=== PATIENT | female | born 1960 | race Caucasian/White ===

== ENCOUNTER 2018-07-16 15:29 | Inpatient (IN) | payer OTHER ==
[~2018-07-16] VITALS: Ht 162.6 cm; Wt 56.9 kg
[2018-07-16 15:40] VITALS: BP 91/67
--- NOTE | 2018-07-16 15:52 | Emergency Room Report ---
History of Present Illness General Chief Complaint: General Complaint Source: Patient Present Illness HPI Patient is a 57-year-old female presented after increased right-sided headache and vomiting. The patient reports having a syncopal episode after standing. She reports having fallen and hit her head. She reports having a persistent headache as well as multiple episodes of vomiting. She reports having generalized body aches and chills. She states that she had not been having any diarrhea. She reports having a nonproductive cough.The patient states she was traveling to [place] she denies any recent alcohol use.The patient was noted to have prior history of arthritis. The patient takes meloxicam. The patient noted to have prior surgery to her neck where she had a nerve ball removed. Patient had prior history of lung nodule and had previously had a CT imaging which showed no change in the nodule.The patient had been taking hormone replacement therapy had recently flown from [place]. Patient denies recent foreign travel.The patient had syncopal episode after standing while in the bathroom. She reported feeling lightheaded prior to syncope. Allergies: Coded Allergies: CEPHALEXIN (Verified Allergy, Unknown, 07/16/18) SULFAMETHOXAZOLE (Verified Allergy, Unknown, 07/16/18) TRIMETHOPRIM (Verified Allergy, Unknown, 07/16/18) Patient History Past Medical History: unable to obtain Reviewed Nursing Documentation: PMH: Agreed; PSxH: Agreed Nursing Documentation-PM Past Medical History: No Stated History Review of Systems All Other Systems: negative except mentioned in HPI Physical Exam Vital Signs Date Time Temp Pulse Resp B/P (MAP) Pulse Ox O2 Delivery O2 Flow Rate FiO2 07/16/18 15:32 97.9 98 16 84/51 93 Room Air Sp02 EP Interpretation: reviewed, normal General Appearance: normal inspection, alert, no apparent distress, GCS 15 Head: other - right parietal scalp laceration 1cm linear, dried blood Eyes: normal eye exam, PERRL, EOMI, lids + conjunctiva normal, no hyphema, no racoon eyes ENT: normal ENT inspection, TMs + canals normal, oropharynx normal, no ruvalcaba signs Neck: trach midline, no bony tend, full range of motion without pain Respiratory: effort normal, no retractions, speaking in full sentences Cardiovascular: regular rate, rhythm, no JVD Cardiovascular #2: 2+ radial (R), 2+ radial (L), 2+ dorsalis pedis (R), 2+ dorsalis pedis (L) Gastrointestinal: normal inspection, non-tender, non-distended, no rebound/ guarding, normal bowel sounds Genitourinary: normal inspection Musculoskeletal: normal inspection, normal ROM, non-tender, back normal Skin: no rash, normal palpation, other - superficial laceration to right parietal scalp Neurologic: normal inspection, CN II-XII intact, oriented x3, sensory intact, motor strength/tone normal, normal speech Psychiatric: normal inspection, judgment & insight normal, memory normal, mood normal, no suicidal/homicidal ideation Medical Decision Making Diagnostic Impression: Primary Impression: Syncope Additional Impressions: Head injury Bilateral pleural effusion Pneumonia Axillary adenopathy Mediastinal lymphadenopathy ER Course Patient is a 57-year-old female presented after increased headache and an syncopal episode. Differential diagnosis included was not limited to subarachnoid hemorrhage, skull fracture, pulmonary embolism, myocardial infarction, cardiac arrhythmia among others.Because of complexity of patient's case laboratory testing and imaging studies were ordered. The patient was noted to have a chest x-ray which showed evidence of a bilateral pulmonary infiltrates. Patient was noted to be initially hypotensive was started on IV fluids. EKG interpreted by me showed normal sinus rhythm with a rate of 75 with diffuse nonspecific T wave changes.The patient was started on IV fluids and antibiotics after cultures are obtained.The chest CT was performed which showed no evidence of pulmonary embolism. CT the chest was noted to have a left lung nodule which patient had previously had diagnosed and had been unchanged. CT chest showed bilateral axillary adenopathy as well as small pleural effusions. Dr.Alfred Holm was contacted for inpatient management. Labs Test 07/16/18 15:48 07/16/18 17:15 White Blood Count 12.2 K/UL (4.8-10.8) Red Blood Count 4.96 M/UL (4.20-5.40) Hemoglobin 15.1 G/DL (12.0-16.0) Hematocrit 42.9 % (37.0-47.0) Mean Corpuscular Volume 87 FL (80-99) Mean Corpuscular Hemoglobin 30.4 PG (27.0-31.0) Mean Corpuscular Hemoglobin Concent 35.1 G/DL (32.0-36.0) Red Cell Distribution Width 11.5 % (11.6-14.8) Platelet Count 181 K/UL (150-450) Mean Platelet Volume 9.4 FL (6.5-10.1) Neutrophils (%) (Auto) % (45.0-75.0) Lymphocytes (%) (Auto) % (20.0-45.0) Monocytes (%) (Auto) % (1.0-10.0) Eosinophils (%) (Auto) % (0.0-3.0) Basophils (%) (Auto) % (0.0-2.0) Prothrombin Time 10.6 SEC (9.30-11.50) Prothromb Time International Ratio 1.0 (0.9-1.1) Activated Partial Thromboplast Time 29 SEC (23-33) D-Dimer 1.44 mg/L FEU (0.00-0.49) Sodium Level 133 MMOL/L (136-145) Potassium Level 5.0 MMOL/L (3.5-5.1) Chloride Level 100 MMOL/L (98-107) Carbon Dioxide Level 24 MMOL/L (21-32) Anion Gap 9 mmol/L (5-15) Blood Urea Nitrogen 31 mg/dL (7-18) Creatinine 1.7 MG/DL (0.55-1.30) Estimat Glomerular Filtration Rate 31.2 mL/min (>60) Glucose Level 120 MG/DL (74-106) Calcium Level 8.8 MG/DL (8.5-10.1) Total Bilirubin 0.5 MG/DL (0.2-1.0) Aspartate Amino Transf (AST/SGOT) 23 U/L (15-37) Alanine Aminotransferase (ALT/SGPT) 23 U/L (12-78) Alkaline Phosphatase 72 U/L (46-116) Total Protein 8.7 G/DL (6.4-8.2) Albumin 3.2 G/DL (3.4-5.0) Globulin 5.5 g/dL Albumin/Globulin Ratio 0.6 (1.0-2.7) EKG Diagnostic Results Rate: normal Rhythm: NSR ST Segments: no acute changes Rhythm Strip Diag. Results EP Interpretation: yes Rhythm: NSR, no PVC's, no ectopy Last Vital Signs Date Time Temp Pulse Resp B/P (MAP) Pulse Ox O2 Delivery O2 Flow Rate FiO2 07/16/18 15:32 97.9 98 16 84/51 93 Room Air Status: improved Disposition: ADMITTED INPATIENT Condition: Serious Elia Del Valle MD Jul 16, 2018 15:52
[2018-07-16] MEDS ORDERED: Metoclopramide 10mg/2ml Inj IVP ONE (16:00)
[2018-07-16 16:16] LABS: HEMATOCRIT 42.9 % (37.0-47.0); HEMOGLOBIN 15.1 G/DL (12.0-16.0); MEAN CORPUSCULAR VOLUME 87 FL (80-99); PLATELET COUNT 181 K/UL (150-450); RED BLOOD COUNT 4.96 M/UL (4.20-5.40); RED CELL DISTRIBUTION WIDTH 11.5 % (11.6-14.8); WHITE BLOOD COUNT 12.2 K/UL (4.8-10.8)
[2018-07-16 16:22] LABS: ANION GAP 9 mmol/L (5-15); BLOOD UREA NITROGEN 31 mg/dL (7-18); CALCIUM 8.8 MG/DL (8.5-10.1); CARBON DIOXIDE 24 MMOL/L (21-32); CHLORIDE 100 MMOL/L (98-107); CREATININE 1.7 MG/DL (0.55-1.30); SODIUM 133 MMOL/L (136-145)
[2018-07-16 16:26] LABS: ALANINE AMINOTRANSFERASE 23 U/L (12-78); ALBUMIN 3.2 G/DL (3.4-5.0); ALBUMIN/GLOBULIN RATIO 0.6 (1.0-2.7); ALKALINE PHOSPHATASE 72 U/L (46-116); ASPARTATE AMINO TRANSFERASE 23 U/L (15-37); BILIRUBIN,TOTAL 0.5 MG/DL (0.2-1.0)
[2018-07-16 16:30] VITALS: BP 104/69
--- NOTE | 2018-07-16 16:35 | Diagnostic Imaging Report ---
EXAM: XR Chest, 1 View CLINICAL HISTORY: SOB TECHNIQUE: Frontal view of the chest. COMPARISON: No relevant prior studies available. FINDINGS: Lungs: Bilateral pulmonary infiltrates/edema. Pleural space: Unremarkable. No pneumothorax. Heart: Unremarkable. No cardiomegaly. Mediastinum: Unremarkable. Bones/joints: Unremarkable. IMPRESSION: Bilateral pulmonary infiltrates/edema.
--- NOTE | 2018-07-16 16:38 | Diagnostic Imaging Report ---
EXAM: CT Head Without Intravenous Contrast CLINICAL HISTORY: PAIN TECHNIQUE: Axial computed tomography images of the head/brain without intravenous contrast. CTDI is 70 mGy and DLP is 2712 mGy-cm. One or more of the following dose reduction techniques were used: automated exposure control, adjustment of the mA and/or kV according to patient size, use of iterative reconstruction technique. COMPARISON: No relevant prior studies available. FINDINGS: Brain: Unremarkable. No hemorrhage. No edema. Ventricles: Unremarkable. No ventriculomegaly. Bones/joints: Unremarkable. No acute fracture. Soft tissues: Unremarkable. Sinuses: Unremarkable as visualized. Mastoid air cells: Unremarkable as visualized. IMPRESSION: No acute intracranial abnormality.
[2018-07-16] MEDS ORDERED: Isovue-370 150ml vial INJ PRN (16:45)
[2018-07-16] MEDS ORDERED: Azithromycin 500 MG in D5W 275 ML IVPB ONE (17:00)
[2018-07-16] MEDS ORDERED: Morphine Sulfate 2mg/ml Inj IVP ONE (17:00)
[2018-07-16] MEDS ORDERED: ZOLOFT100 MG ORAL (17:56)
[2018-07-16] MEDS ORDERED: MELOXICAM15 MG PO (17:56)
[2018-07-16] MEDS ORDERED: MINIVELLE1 EAC1 TD (18:01)
[2018-07-16 18:07] LABS: APPEARANCE,URINE CLEAR; BILIRUBIN, URINE NEGATIVE (NEGATIVE); COLOR,URINE PALE YELLOW; GLUCOSE, URINE (UA) NEGATIVE (NEGATIVE); KETONES,URINE 1+ (NEGATIVE); LEUKOCYTE ESTERASE ,URINE NEGATIVE (NEGATIVE); NITRITE,URINE NEGATIVE (NEGATIVE); PH,URINE 5 (4.5-8.0); PROTEIN,URINE 2+ (NEGATIVE); UROBILINOGEN,URINE NORMAL MG/DL (0.0-1.0)
--- NOTE | 2018-07-16 18:09 | Diagnostic Imaging Report ---
EXAM: CT Angiography Chest With Intravenous Contrast CLINICAL HISTORY: CP TECHNIQUE: Axial computed tomographic angiography images of the chest with intravenous contrast using pulmonary embolism protocol. CTDI is 15 mGy and DLP is 549 mGy-cm. One or more of the following dose reduction techniques were used: automated exposure control, adjustment of the mA and/or kV according to patient size, use of iterative reconstruction technique. MIP reconstructed images were created and reviewed. COMPARISON: No relevant prior studies available. FINDINGS: Pulmonary arteries: No PE or aortic dissection. Aorta: No acute findings. No thoracic aortic dissection. Lungs: Bilateral pulmonary edema/infiltrates. Cannot exclude underlying pulmonary lesion, consider followup to ensure resolution. Possible left upper lobe nodule. Pleural space: Small bilateral pleural effusions. No pneumothorax. Heart: Unremarkable. No cardiomegaly. No significant pericardial effusion. Bones/joints: Nonspecific T7 sclerotic focus. Soft tissues: Unremarkable. Lymph nodes: Nonspecific mildly prominent mediastinal and bilateral axillary lymph nodes. IMPRESSION: 1. No PE or aortic dissection. 2. Bilateral pulmonary edema/infiltrates. Cannot exclude underlying pulmonary lesion, consider followup to ensure resolution. 3. Small bilateral pleural effusions.
[2018-07-16] MEDS ORDERED: Ascorbic Acid 500mg tab ORAL ONE (18:15)
[2018-07-16] MEDS ORDERED: Acetaminophen 500mg (ES) tab ORAL ONE (19:30)
[2018-07-16 19:52] VITALS: BP 100/60
[2018-07-16] MEDS ORDERED: Zolpidem 5mg tab ORAL PRN (20:15)
[2018-07-16] MEDS ORDERED: Milk of Magnesia 30ml Ud ORAL PRN (20:15)
--- NOTE | 2018-07-16 20:31 | History & Physical ---
History and Physical History & Physicial HP dictated # [id number] Jc Holm MD Jul 16, 2018 20:31
[2018-07-16] MEDS ORDERED: Albuterol/Ipratropium 3ml neb HHN SCH (21:00)
[2018-07-16] MEDS ORDERED: Azithromycin 500 MG in D5W 275 ML IV SCH (22:00)
[2018-07-16] MEDS ORDERED: Piperacillin/Tazobactam 3.375 GM in NS 110 ML IVPB SCH (22:00)
[2018-07-16] MEDS: Sertraline 100mg tab ORAL SCH (22:12)
[2018-07-16] MEDS: Piperacillin/Tazobactam 3.375 GM in NS 110 ML IVPB SCH (22:13)
[2018-07-16] MEDS: D5 1/2NS 1,000 ML IV SCH (23:23)
--- NOTE | 2018-07-16 23:46 | History and Physical Report ---
DATE OF ADMISSION: 07/16/2018 CHIEF COMPLAINT: Shortness of breath and reported syncope. HISTORY OF PRESENT ILLNESS: This is a 57-year-old female who usually lives in [place]. She is here with her kids to meet some friends. They were in [place] and she started having vomiting and headaches and apparently had a syncopal episode, hit her head. She has had nonproductive cough and was brought into the emergency room. On chest x-ray, she had some infiltrate and CT scans showed lung nodules as well as pleural effusions. However, the patient says that she had lung nodules before and has been stable for the past few years. MEDICATIONS: Reviewed in the EMR. SOCIAL HISTORY: No history of smoking. She drinks occasionally. ALLERGIES: She is intolerant to Bactrim. She has some allergy to Keflex, possibly some hives. REVIEW OF SYSTEMS: As above. PHYSICAL EXAMINATION: GENERAL: The patient is a 57-year-old female, in no acute distress. VITAL SIGNS: Blood pressure initially was 84/51, pulse 98, temperature 97.9, respiratory rate 16. HEENT: [place] conjunctivae. Anicteric sclerae. NECK: Supple. LUNGS: Diffuse rhonchi and bibasilar rales. HEART: S1-S2 without murmurs or rubs. ABDOMEN: Soft, nontender. EXTREMITIES: No cyanosis or edema. LABORATORY FINDINGS: The CBC shows WBC of 12,200, hematocrit 42.9 hemoglobin is 15.1, platelets 181,000. Chemistry panel shows serum sodium 133, potassium 5, chloride 100, BUN is 31, creatinine 1.7. Blood sugar is 120. UA is unremarkable. ASSESSMENT: This is a 57-year-old female who is admitted with some nausea, vomiting, respiratory symptoms, diagnosis of pneumonia. What is concerning is she has lymphadenopathy and a chest CT. She has renal failure, likely as a result of prerenal azotemia. PLAN: The patient will be on IV fluids and IV antibiotics. Pulmonary consultation will be obtained. The patient will be on bronchodilators, on oxygen. Adjustment will be made in the patient's regimen. Jc Holm M.D. DR: LEONOR JOB#: [id number] CC:
[2018-07-17] VITALS: BP 97/55
[2018-07-17] MEDS: Morphine Sulfate 2mg/ml Inj IVP PRN ×6 (00:22→22:12)
[2018-07-17] MEDS: Albuterol/Ipratropium 3ml neb HHN SCH ×4 (03:42→19:26)
[2018-07-17 04:00] VITALS: BP 108/69
[2018-07-17] MEDS: Piperacillin/Tazobactam 3.375 GM in NS 110 ML IVPB SCH ×3 (05:07→22:11)
[2018-07-17 08:00] VITALS: BP 101/60
[2018-07-17] MEDS: Meloxicam 15 MG TAB ORAL SCH (09:21)
[2018-07-17] MEDS: Sertraline 100mg tab ORAL SCH (09:21)
[2018-07-17] MEDS: D5 1/2NS 1,000 ML IV SCH ×2 (10:47→22:11)
--- NOTE | 2018-07-17 11:29 | General Progress Note ---
Assessment/Plan Problem List: (1) Pneumonia ICD Codes: J18.9 - Pneumonia, unspecified organism SNOMED: 871970836 (2) Mediastinal lymphadenopathy ICD Codes: R59.0 - Localized enlarged lymph nodes SNOMED: 30927061 (3) Axillary adenopathy ICD Codes: R59.0 - Localized enlarged lymph nodes SNOMED: 611562058 (4) Bilateral pleural effusion ICD Codes: J90 - Pleural effusion, not elsewhere classified SNOMED: 872153294 (5) Syncope ICD Codes: R55 - Syncope and collapse SNOMED: 861680555 Assessment/Plan IV Abxs bronchodilators ID and pulm consult check Echo Subjective Allergies: Coded Allergies: CEPHALEXIN (Verified Allergy, Unknown, 07/16/18) SULFAMETHOXAZOLE (Verified Allergy, Unknown, 07/16/18) TRIMETHOPRIM (Verified Allergy, Unknown, 07/16/18) Subjective feels slightly better Objective Last 24 Hour Vital Signs Date Time Temp Pulse Resp B/P (MAP) Pulse Ox O2 Delivery O2 Flow Rate FiO2 07/17/18 09:00 Room Air 07/17/18 08:02 Nasal Cannula 2.0 28 07/17/18 08:02 Nasal Cannula 2.0 28 07/17/18 08:01 123 07/17/18 08:00 100.6 105 18 101/60 (74) 98 07/17/18 05:43 97.7 07/17/18 04:00 100.0 94 20 108/69 (82) 96 07/17/18 04:00 97 07/17/18 03:54 92 18 96 Nasal Cannula 2.0 28 07/17/18 03:51 94 18 Nasal Cannula 2.0 28 07/17/18 03:42 94 18 90 Nasal Cannula 2.0 28 07/17/18 00:00 88 07/17/18 00:00 98.0 85 20 97/55 (69) 96 07/16/18 22:19 Nasal Cannula 2.0 07/16/18 21:20 98.2 86 22 99/58 95 Nasal Cannula 2.0 100 86 07/16/18 20:03 98.2 07/16/18 20:03 98.2 07/16/18 19:52 97.9 86 25 100/60 96 Nasal Cannula 2.0 86 07/16/18 17:40 97.9 07/16/18 16:30 82 16 104/69 96 Nasal Cannula 2.0 07/16/18 15:40 98 16 Room Air 07/16/18 15:40 97.9 84 16 91/67 93 Room Air 07/16/18 15:32 97.9 98 16 84/51 93 Room Air Intake and Output 07/16/18 07/17/18 19:00 07:00 Intake Total 1100 ml 1247.8 ml Output Total 150 ml Balance 950 ml 1247.8 ml Intake Oral 100 ml 240 ml IV Total 1000 ml 1007.8 ml Output Urine Total 150 ml # Voids 1 Laboratory Tests 07/16/18 15:48: White Blood Count 12.2H, Red Blood Count 4.96, Hemoglobin 15.1, Hematocrit 42.9 , Mean Corpuscular Volume 87, Mean Corpuscular Hemoglobin 30.4, Mean Corpuscular Hemoglobin Concent 35.1, Red Cell Distribution Width 11.5L, Platelet Count 181, Mean Platelet Volume 9.4, Neutrophils (%) (Auto) , Lymphocytes (%) (Auto) , Monocytes (%) (Auto) , Eosinophils (%) (Auto) , Basophils (%) (Auto) , Differential Total Cells Counted 100, Neutrophils % ( Manual) 95H, Lymphocytes % (Manual) 4L, Monocytes % (Manual) 0L, Eosinophils % ( Manual) 1, Basophils % (Manual) 0, Band Neutrophils 0, Platelet Estimate Adequate, Platelet Morphology Normal, Red Blood Cell Morphology Normal, Prothrombin Time 10.6, Prothromb Time International Ratio 1.0, Activated Partial Thromboplast Time 29, D-Dimer 1.44H, Sodium Level 133L, Potassium Level 5.0, Chloride Level 100, Carbon Dioxide Level 24, Anion Gap 9, Blood Urea Nitrogen 31H, Creatinine 1.7H, Estimat Glomerular Filtration Rate 31.2, Glucose Level 120H, Calcium Level 8.8, Total Bilirubin 0.5, Aspartate Amino Transf (AST/ SGOT) 23, Alanine Aminotransferase (ALT/SGPT) 23, Alkaline Phosphatase 72, Troponin I 0.000, Total Protein 8.7H, Albumin 3.2L, Globulin 5.5, Albumin/ Globulin Ratio 0.6L 07/16/18 17:15: Lactic Acid Level 0.30L 07/16/18 17:58: Urine Color Pale yellow, Urine Appearance Clear, Urine pH 5, Urine Specific [place] 1.010, Urine Protein 2+H, Urine Glucose (UA) Negative, Urine Ketones 1+H , Urine Blood Negative, Urine Nitrite Negative, Urine Bilirubin Negative, Urine Urobilinogen Normal, Urine Leukocyte Esterase Negative, Urine RBC 0, Urine WBC 0 -2, Urine Squamous Epithelial Cells ManyH, Urine Amorphous Sediment ManyH, Urine Bacteria Few Height (Feet): 5 Height (Inches): 4.00 Weight (Pounds): 125 Cardiovascular: normal rate Respiratory/Chest: crackles/rales, rhonchi - bilaterally Edema: no edema noted Generalized Jc Holm MD Jul 17, 2018 11:29
--- NOTE | 2018-07-17 11:41 | Pulmonology Progress Note ---
Assessment/Plan Assessment/Plan HPI Patient is a 57-year-old female visiting [place], who presented after increased right-sided headache and vomiting. The patient reports having a syncopal episode after standing, having fallen and hit her head. She reports having a persistent headache as well as multiple episodes of vomiting. She reports having generalized body aches and chills. She states that she had not been having any diarrhea. She reports having a nonproductive cough. Previous neck surgery to her neck where she had a nerve ball removed. Patient had prior history of lung nodule and had previously had a CT imaging which showed no change in the nodule.The patient had been taking hormone replacement therapy had recently flown from [place]. Patient denies recent foreign travel.The patient had syncopal episode after standing while in the bathroom. She reported feeling lightheaded prior to syncope Allergies: Coded Allergies: CEPHALEXIN (Verified Allergy, Unknown, 07/16/18) SULFAMETHOXAZOLE (Verified Allergy, Unknown, 07/16/18) TRIMETHOPRIM (Verified Allergy, Unknown, 07/16/18) Patient History Past Medical History: unable to obtain Reviewed Nursing Documentation: PMH: Agreed; PSxH: Agreed Nursing Documentation-PM Past Medical History: No Stated History Review of Systems All Other Systems: negative except mentioned in HPI Physical Exam Vital Signs Noted Sp02 EP Interpretation: reviewed, normal General Appearance: normal inspection, alert, no apparent distress, GCS 15 Head: other - right parietal scalp laceration 1cm linear, dried blood Eyes: normal eye exam, PERRL, EOMI, lids + conjunctiva normal, no hyphema, no racoon eyes ENT: normal ENT inspection, TMs + canals normal, oropharynx normal, no ruvalcaba signs Neck: trach midline, no bony tend, full range of motion without pain Respiratory: effort normal, no retractions, speaking in full sentences Cardiovascular: regular rate, rhythm, no JVD Cardiovascular #2: 2+ radial (R), 2+ radial (L), 2+ dorsalis pedis (R), 2+ dorsalis pedis (L) Gastrointestinal: normal inspection, non-tender, non-distended, no rebound/ guarding, normal bowel sounds Genitourinary: normal inspection Musculoskeletal: normal inspection, normal ROM, non-tender, back normal Skin: no rash, normal palpation, other - superficial laceration to right parietal scalp Neurologic: normal inspection, CN II-XII intact, oriented x3, sensory intact, motor strength/tone normal, normal speech Psychiatric: normal inspection, judgment & insight normal, memory normal, mood normal, no suicidal/homicidal ideation Medical Decision Making Impression: Primary Impression: Syncope Head injury Bilateral pleural effusion Pneumonia Pulmonary Nodule Axillary adenopathy Mediastinal lymphadenopathy Plan IV fluids. IV Antibiotics [facility] [employer] medications Out patient follow upof Pulmonary Nodule PPX O2 PRN CXR: Bilateral infiltrates CT Chest: No PE, Pulmonary nodule, Mediastinal LN Labs Test 07/16/18 15:48 07/16/18 17:15 White Blood Count 12.2 K/UL (4.8-10.8) Red Blood Count 4.96 M/UL (4.20-5.40) Hemoglobin 15.1 G/DL (12.0-16.0) Hematocrit 42.9 % (37.0-47.0) Mean Corpuscular Volume 87 FL (80-99) Mean Corpuscular Hemoglobin 30.4 PG (27.0-31.0) Mean Corpuscular Hemoglobin Concent 35.1 G/DL (32.0-36.0) Red Cell Distribution Width 11.5 % (11.6-14.8) Platelet Count 181 K/UL (150-450) Mean Platelet Volume 9.4 FL (6.5-10.1) Neutrophils (%) (Auto) % (45.0-75.0) Lymphocytes (%) (Auto) % (20.0-45.0) Monocytes (%) (Auto) % (1.0-10.0) Eosinophils (%) (Auto) % (0.0-3.0) Basophils (%) (Auto) % (0.0-2.0) Prothrombin Time 10.6 SEC (9.30-11.50) Prothromb Time International Ratio 1.0 (0.9-1.1) Activated Partial Thromboplast Time 29 SEC (23-33) D-Dimer 1.44 mg/L FEU (0.00-0.49) Sodium Level 133 MMOL/L (136-145) Potassium Level 5.0 MMOL/L (3.5-5.1) Chloride Level 100 MMOL/L (98-107) Carbon Dioxide Level 24 MMOL/L (21-32) Anion Gap 9 mmol/L (5-15) Blood Urea Nitrogen 31 mg/dL (7-18) Creatinine 1.7 MG/DL (0.55-1.30) Estimat Glomerular Filtration Rate 31.2 mL/min (>60) Glucose Level 120 MG/DL (74-106) Calcium Level 8.8 MG/DL (8.5-10.1) Total Bilirubin 0.5 MG/DL (0.2-1.0) Aspartate Amino Transf (AST/SGOT) 23 U/L (15-37) Alanine Aminotransferase (ALT/SGPT) 23 U/L (12-78) Alkaline Phosphatase 72 U/L (46-116) Total Protein 8.7 G/DL (6.4-8.2) Albumin 3.2 G/DL (3.4-5.0) Globulin 5.5 g/dL Albumin/Globulin Ratio 0.6 (1.0-2.7) EKG Diagnostic Results Rate: normal Rhythm: NSR ST Segments: no acute changes Rhythm Strip Diag. Results EP Interpretation: yes Rhythm: NSR, no PVC's, no ectopy Subjective ROS Limited/Unobtainable: No Allergies: Coded Allergies: CEPHALEXIN (Verified Allergy, Unknown, 07/16/18) SULFAMETHOXAZOLE (Verified Allergy, Unknown, 07/16/18) TRIMETHOPRIM (Verified Allergy, Unknown, 07/16/18) Objective Last 24 Hour Vital Signs Date Time Temp Pulse Resp B/P (MAP) Pulse Ox O2 Delivery O2 Flow Rate FiO2 07/17/18 09:00 Room Air 07/17/18 08:02 Nasal Cannula 2.0 28 07/17/18 08:02 Nasal Cannula 2.0 28 07/17/18 08:01 123 07/17/18 08:00 100.6 105 18 101/60 (74) 98 07/17/18 05:43 97.7 07/17/18 04:00 100.0 94 20 108/69 (82) 96 07/17/18 04:00 97 07/17/18 03:54 92 18 96 Nasal Cannula 2.0 28 07/17/18 03:51 94 18 Nasal Cannula 2.0 28 07/17/18 03:42 94 18 90 Nasal Cannula 2.0 28 07/17/18 00:00 88 07/17/18 00:00 98.0 85 20 97/55 (69) 96 07/16/18 22:19 Nasal Cannula 2.0 07/16/18 21:20 98.2 86 22 99/58 95 Nasal Cannula 2.0 100 86 07/16/18 20:03 98.2 07/16/18 20:03 98.2 07/16/18 19:52 97.9 86 25 100/60 96 Nasal Cannula 2.0 86 07/16/18 17:40 97.9 07/16/18 16:30 82 16 104/69 96 Nasal Cannula 2.0 07/16/18 15:40 98 16 Room Air 07/16/18 15:40 97.9 84 16 91/67 93 Room Air 07/16/18 15:32 97.9 98 16 84/51 93 Room Air Intake and Output 07/16/18 07/17/18 19:00 07:00 Intake Total 1100 ml 1247.8 ml Output Total 150 ml Balance 950 ml 1247.8 ml Intake Oral 100 ml 240 ml IV Total 1000 ml 1007.8 ml Output Urine Total 150 ml # Voids 1 Microbiology Date/Time Source Procedure Growth Status 07/16/18 16:55 Nasal Nares Influenza Types A,B Antigen (SONAL) - Final Complete Laboratory Tests 07/16/18 15:48: White Blood Count 12.2H, Red Blood Count 4.96, Hemoglobin 15.1, Hematocrit 42.9 , Mean Corpuscular Volume 87, Mean Corpuscular Hemoglobin 30.4, Mean Corpuscular Hemoglobin Concent 35.1, Red Cell Distribution Width 11.5L, Platelet Count 181, Mean Platelet Volume 9.4, Neutrophils (%) (Auto) , Lymphocytes (%) (Auto) , Monocytes (%) (Auto) , Eosinophils (%) (Auto) , Basophils (%) (Auto) , Differential Total Cells Counted 100, Neutrophils % ( Manual) 95H, Lymphocytes % (Manual) 4L, Monocytes % (Manual) 0L, Eosinophils % ( Manual) 1, Basophils % (Manual) 0, Band Neutrophils 0, Platelet Estimate Adequate, Platelet Morphology Normal, Red Blood Cell Morphology Normal, Prothrombin Time 10.6, Prothromb Time International Ratio 1.0, Activated Partial Thromboplast Time 29, D-Dimer 1.44H, Sodium Level 133L, Potassium Level 5.0, Chloride Level 100, Carbon Dioxide Level 24, Anion Gap 9, Blood Urea Nitrogen 31H, Creatinine 1.7H, Estimat Glomerular Filtration Rate 31.2, Glucose Level 120H, Calcium Level 8.8, Total Bilirubin 0.5, Aspartate Amino Transf (AST/ SGOT) 23, Alanine Aminotransferase (ALT/SGPT) 23, Alkaline Phosphatase 72, Troponin I 0.000, Total Protein 8.7H, Albumin 3.2L, Globulin 5.5, Albumin/ Globulin Ratio 0.6L 07/16/18 17:15: Lactic Acid Level 0.30L 07/16/18 17:58: Urine Color Pale yellow, Urine Appearance Clear, Urine pH 5, Urine Specific [place] 1.010, Urine Protein 2+H, Urine Glucose (UA) Negative, Urine Ketones 1+H , Urine Blood Negative, Urine Nitrite Negative, Urine Bilirubin Negative, Urine Urobilinogen Normal, Urine Leukocyte Esterase Negative, Urine RBC 0, Urine WBC 0 -2, Urine Squamous Epithelial Cells ManyH, Urine Amorphous Sediment ManyH, Urine Bacteria Few Current Medications Medications (Trade) Dose Ordered Sig/Dayanara Route PRN Reason Start Time Stop Time Status Last Admin Dose Admin Acetaminophen (Tylenol) 650 mg Q4H PRN ORAL Mild Pain (Pain Scale 1-3) 07/16/18 20:15 08/15/18 20:14 07/16/18 22:14 Acetaminophen (Tylenol) 650 mg Q4H PRN ORAL fever 07/16/18 20:15 08/15/18 20:14 Albuterol/ Ipratropium (Albuterol/ Ipratropium) 3 ml Q6HRT HHN 07/17/18 01:00 07/22/18 00:59 07/17/18 03:42 Azithromycin 500 mg/Dextrose 275 ml @ 275 mls/hr Q24H IV 07/16/18 22:00 07/23/18 21:59 07/16/18 22:13 Dextrose/Sodium Chloride 1,000 ml @ 75 mls/hr [id number] IV 07/16/18 21:15 08/15/18 21:14 07/17/18 10:47 Famotidine (Pepcid) 20 mg DAILY ORAL 07/16/18 20:15 08/15/18 20:14 07/17/18 09:21 Iopamidol (Isovue-370 150ml) 150 ml NOW PRN INJ Radiology Procedure 07/16/18 16:45 07/18/18 16:42 Magnesium Hydroxide (Mom) 30 ml HSPRN PRN ORAL Constipation 07/16/18 20:15 08/15/18 20:14 Meloxicam (Mobic) 15 mg DAILY ORAL 07/17/18 09:00 08/16/18 08:59 07/17/18 09:21 Morphine Sulfate (Morphine Sulfate) 2 mg Q3H PRN IVP For Pain 07/16/18 23:45 07/23/18 23:44 07/17/18 10:47 Ondansetron HCl (Zofran) 4 mg Q6H PRN IVP Nausea & Vomiting 07/16/18 20:15 08/15/18 20:14 07/17/18 05:34 Piperacillin Sod/ Tazobactam Sod 3.375 gm/Sodium Chloride 110 ml @ 27.5 mls/hr EVERY 8 HOURS IVPB 07/16/18 22:00 07/23/18 21:59 07/17/18 05:07 Sertraline HCl (Zoloft) 100 mg DAILY ORAL 07/16/18 20:15 08/15/18 20:14 07/17/18 09:21 Zolpidem Tartrate (Ambien) 5 mg HSPRN PRN ORAL Insomnia 07/16/18 20:15 07/23/18 20:14 07/16/18 22:12 Renny Roper MD Jul 17, 2018 11:40
[2018-07-17 12:00] VITALS: BP 97/66
--- NOTE | 2018-07-17 15:31 | Infectious Diseases Prog Note ---
Assessment/Plan Assessment/Plan Full consult dictated: A) 1) pneumonia - ? cap, ? viral, ? mrsa, cocci/tuberculosis less likely 2) ? sepsis, nirav, leukocytosis, fevers 3) sob, hypoxia, bernal, no neck stiffness - started Wednesday 4) allergies - cephalexin, sulfa, tolerates zosyn/pcn P) 1) zosyn and vancomycin, azithromycin, tamiflu 2) check sc, labs, serology and chest x-ray 3) d/w Dr. Roper 4) continue treatment per primary and consultants 5) thank you Subjective Allergies: Coded Allergies: CEPHALEXIN (Verified Allergy, Unknown, 07/16/18) SULFAMETHOXAZOLE (Verified Allergy, Unknown, 07/16/18) TRIMETHOPRIM (Verified Allergy, Unknown, 07/16/18) Objective Vital Signs Last 24 Hour Vital Signs Date Time Temp Pulse Resp B/P (MAP) Pulse Ox O2 Delivery O2 Flow Rate FiO2 07/17/18 12:36 79 20 95 Nasal Cannula 3.0 32 07/17/18 12:27 76 20 91 Nasal Cannula 3.0 32 07/17/18 12:00 100.2 78 18 97/66 (76) 100 07/17/18 11:53 74 07/17/18 09:00 Room Air 07/17/18 08:02 Nasal Cannula 2.0 28 07/17/18 08:02 Nasal Cannula 2.0 28 07/17/18 08:01 123 07/17/18 08:00 100.6 105 18 101/60 (74) 98 07/17/18 05:43 97.7 07/17/18 04:00 100.0 94 20 108/69 (82) 96 07/17/18 04:00 97 07/17/18 03:54 92 18 96 Nasal Cannula 2.0 28 07/17/18 03:51 94 18 Nasal Cannula 2.0 28 07/17/18 03:42 94 18 90 Nasal Cannula 2.0 28 07/17/18 00:00 88 07/17/18 00:00 98.0 85 20 97/55 (69) 96 07/16/18 22:19 Nasal Cannula 2.0 07/16/18 21:20 98.2 86 22 99/58 95 Nasal Cannula 2.0 100 86 07/16/18 20:03 98.2 07/16/18 20:03 98.2 11/10/18 19:52 97.9 86 25 100/60 96 Nasal Cannula 2.0 86 07/16/18 17:40 97.9 07/16/18 16:30 82 16 104/69 96 Nasal Cannula 2.0 07/16/18 15:40 98 16 Room Air 07/16/18 15:40 97.9 84 16 91/67 93 Room Air 07/16/18 15:32 97.9 98 16 84/51 93 Room Air Height (Feet): 5 Height (Inches): 4.00 Weight (Pounds): 125 Microbiology Date/Time Source Procedure Growth Status 07/16/18 16:55 Nasal Nares Influenza Types A,B Antigen (SONAL) - Final Complete Laboratory Tests Test 07/16/18 15:48 07/16/18 17:15 07/16/18 17:58 White Blood Count 12.2 K/UL (4.8-10.8) H Red Blood Count 4.96 M/UL (4.20-5.40) Hemoglobin 15.1 G/DL (12.0-16.0) Hematocrit 42.9 % (37.0-47.0) Mean Corpuscular Volume 87 FL (80-99) Mean Corpuscular Hemoglobin 30.4 PG (27.0-31.0) Mean Corpuscular Hemoglobin Concent 35.1 G/DL (32.0-36.0) Red Cell Distribution Width 11.5 % (11.6-14.8) L Platelet Count 181 K/UL (150-450) Mean Platelet Volume 9.4 FL (6.5-10.1) Neutrophils (%) (Auto) % (45.0-75.0) Lymphocytes (%) (Auto) % (20.0-45.0) Monocytes (%) (Auto) % (1.0-10.0) Eosinophils (%) (Auto) % (0.0-3.0) Basophils (%) (Auto) % (0.0-2.0) Differential Total Cells Counted 100 Neutrophils % (Manual) 95 % (45-75) H Lymphocytes % (Manual) 4 % (20-45) L Monocytes % (Manual) 0 % (1-10) L Eosinophils % (Manual) 1 % (0-3) Basophils % (Manual) 0 % (0-2) Band Neutrophils 0 % (0-8) Platelet Estimate Adequate Platelet Morphology Normal Red Blood Cell Morphology Normal Prothrombin Time 10.6 SEC (9.30-11.50) Prothromb Time International Ratio 1.0 (0.9-1.1) Activated Partial Thromboplast Time 29 SEC (23-33) D-Dimer 1.44 mg/L FEU (0.00-0.49) H Sodium Level 133 MMOL/L (136-145) L Potassium Level 5.0 MMOL/L (3.5-5.1) Chloride Level 100 MMOL/L (98-107) Carbon Dioxide Level 24 MMOL/L (21-32) Anion Gap 9 mmol/L (5-15) Blood Urea Nitrogen 31 mg/dL (7-18) H Creatinine 1.7 MG/DL (0.55-1.30) H Estimat Glomerular Filtration Rate 31.2 mL/min (>60) Glucose Level 120 MG/DL (74-106) H Calcium Level 8.8 MG/DL (8.5-10.1) Total Bilirubin 0.5 MG/DL (0.2-1.0) Aspartate Amino Transf (AST/SGOT) 23 U/L (15-37) Alanine Aminotransferase (ALT/SGPT) 23 U/L (12-78) Alkaline Phosphatase 72 U/L (46-116) Troponin I 0.000 ng/mL (0.000-0.056) Total Protein 8.7 G/DL (6.4-8.2) H Albumin 3.2 G/DL (3.4-5.0) L Globulin 5.5 g/dL Albumin/Globulin Ratio 0.6 (1.0-2.7) L Lactic Acid Level 0.30 mmol/L (0.4-2.0) L Urine Color Pale yellow Urine Appearance Clear Urine pH 5 (4.5-8.0) Urine Specific [place] 1.010 (1.005-1.035) Urine Protein 2+ (NEGATIVE) H Urine Glucose (UA) Negative (NEGATIVE) Urine Ketones 1+ (NEGATIVE) H Urine Blood Negative (NEGATIVE) Urine Nitrite Negative (NEGATIVE) Urine Bilirubin Negative (NEGATIVE) Urine Urobilinogen Normal MG/DL (0.0-1.0) Urine Leukocyte Esterase Negative (NEGATIVE) Urine RBC 0 /HPF (0 - 2) Urine WBC 0-2 /HPF (0 - 2) Urine Squamous Epithelial Cells Many /LPF (NONE/OCC) H Urine Amorphous Sediment Many /LPF (NONE) H Urine Bacteria Few /HPF (NONE) Current Medications Medications (Trade) Dose Ordered Sig/Dayanara Route PRN Reason Start Time Stop Time Status Last Admin Dose Admin Acetaminophen (Tylenol) 650 mg Q4H PRN ORAL Mild Pain (Pain Scale 1-3) 07/16/18 20:15 08/15/18 20:14 07/16/18 22:14 Acetaminophen (Tylenol) 650 mg Q4H PRN ORAL fever 07/16/18 20:15 08/15/18 20:14 Albuterol/ Ipratropium (Albuterol/ Ipratropium) 3 ml Q6HRT HHN 07/17/18 01:00 07/22/18 00:59 07/17/18 12:29 Azithromycin 500 mg/Dextrose 275 ml @ 275 mls/hr Q24H IV 07/16/18 22:00 07/23/18 21:59 07/16/18 22:13 Dextrose/Sodium Chloride 1,000 ml @ 75 mls/hr [id number] IV 07/16/18 21:15 08/15/18 21:14 07/17/18 10:47 Famotidine (Pepcid) 20 mg DAILY ORAL 07/16/18 20:15 08/15/18 20:14 07/17/18 09:21 Fluconazole/ Sodium Chloride 100 ml @ 100 mls/hr Q24H IV 07/17/18 16:00 07/24/18 15:59 Iopamidol (Isovue-370 150ml) 150 ml NOW PRN INJ Radiology Procedure 07/16/18 16:45 07/18/18 16:42 Magnesium Hydroxide (Mom) 30 ml HSPRN PRN ORAL Constipation 07/16/18 20:15 08/15/18 20:14 Meloxicam (Mobic) 15 mg DAILY ORAL 07/17/18 09:00 08/16/18 08:59 07/17/18 09:21 Morphine Sulfate (Morphine Sulfate) 2 mg Q3H PRN IVP For Pain 07/16/18 23:45 07/23/18 23:44 07/17/18 15:02 Ondansetron HCl (Zofran) 4 mg Q6H PRN IVP Nausea & Vomiting 07/16/18 20:15 08/15/18 20:14 07/17/18 05:34 Oseltamivir Phosphate (Tamiflu) 30 mg BID ORAL 07/17/18 18:00 07/22/18 17:59 Piperacillin Sod/ Tazobactam Sod 3.375 gm/Sodium Chloride 110 ml @ 27.5 mls/hr EVERY 8 HOURS IVPB 07/16/18 22:00 07/23/18 21:59 07/17/18 14:30 Sertraline HCl (Zoloft) 100 mg DAILY ORAL 07/16/18 20:15 08/15/18 20:14 07/17/18 09:21 Vancomycin HCl (Vanco rx to dose) 1 ea DAILY PRN MISC Per rx protocol 07/17/18 14:45 08/16/18 14:44 Vancomycin HCl 1 gm/Dextrose 275 ml @ 183.708 mls/hr ONCE IVPB 07/17/18 16:00 07/17/18 18:00 Zolpidem Tartrate (Ambien) 5 mg HSPRN PRN ORAL Insomnia 07/16/18 20:15 07/23/18 20:14 07/16/18 22:12 Naz Sainz MD Jul 17, 2018 15:31
[2018-07-17 16:00] VITALS: BP 100/61
[2018-07-17] MEDS ORDERED: Vancomycin 1gm/D5W 275ml IVPB SCH ×2 (16:00)
[2018-07-17 16:20] LABS: HEMATOCRIT 35.9 % (37.0-47.0); HEMOGLOBIN 12.4 G/DL (12.0-16.0); MEAN CORPUSCULAR VOLUME 87 FL (80-99); PLATELET COUNT 140 K/UL (150-450); RED BLOOD COUNT 4.12 M/UL (4.20-5.40); RED CELL DISTRIBUTION WIDTH 11.7 % (11.6-14.8); WHITE BLOOD COUNT 11.2 K/UL (4.8-10.8)
[2018-07-17 16:28] LABS: ALANINE AMINOTRANSFERASE 18 U/L (12-78); ALKALINE PHOSPHATASE 45 U/L (46-116); ANION GAP 9 mmol/L (5-15); ASPARTATE AMINO TRANSFERASE 17 U/L (15-37); BILIRUBIN,TOTAL 0.2 MG/DL (0.2-1.0); CALCIUM 7.4 MG/DL (8.5-10.1); CARBON DIOXIDE 22 MMOL/L (21-32); CHLORIDE 103 MMOL/L (98-107); LACTATE DEHYDROGENASE 128 U/L (81-234); POTASSIUM 3.9 MMOL/L (3.5-5.1); SODIUM 134 MMOL/L (136-145)
[2018-07-17 17:18] LABS: ALBUMIN 2.1 G/DL (3.4-5.0); BLOOD UREA NITROGEN 18 mg/dL (7-18)
[2018-07-17 20:00] VITALS: BP 128/88
[2018-07-17] MEDS ORDERED: LORazepam 1mg tab ORAL PRN (20:45)
[2018-07-17] MEDS ORDERED: Azithromycin 500 MG in D5W 275 ML IV SCH (21:00)
--- NOTE | 2018-07-17 22:46 | Consultation ---
DATE OF CONSULTATION: 07/17/2018 INFECTIOUS DISEASES CONSULTATION: CONSULTING PHYSICIAN: Naz Sainz M.D. ATTENDING PHYSICIAN: Jc Holm M.D. REFERRING PHYSICIAN: Jc Holm M.D. REASON FOR CONSULTATION: Pneumonia, possible sepsis, fevers. CHIEF COMPLAINT: The patient's chief complaint coming to the hospital is shortness of breath, congestion, fevers, headache, hypoxia. She also had episodes of vomiting and also nonproductive cough. She does have cough and congestion looks like also. HISTORY OF PRESENT ILLNESS: This is a very pleasant 57-year-old female, who has no significant past medical history, who presents to [facility] with a nonproductive cough, syncopal episode, headaches, and vomiting. The patient presented to [place] and chest x-ray and CT showed infiltrates and CT showed lung nodule. She also had effusions. The patient has a history of lung nodules. The patient is febrile, elevated white count, and it is unclear if she has sepsis; however, lactic acid level is unremarkable, it was normal. Infectious Disease consultation is requested for antibiotic management in this patient. The patient is on Zosyn and azithromycin. I am going to add vancomycin and Tamiflu. Influenza screen is negative; however, this is not a PCR test, which lessens its sensitivity. Case discussed with Dr. Roper, who will also evaluate the patient. Case discussed with the patient and RN. Orders were entered and we will continue Zosyn, vancomycin, azithromycin, and Tamiflu for now. Of note, she was in [place] from Wednesday to Wednesday. She lives in [place]. She travelled from [place] to [place] and again she was there from Wednesday to Wednesday. REVIEW OF SYSTEMS: CONSTITUTIONAL: She has generalized fatigue, however, no focal weakness. She had headache and vomiting and nonproductive cough. HEAD AND NECK: No neck stiffness or change in vision. She is alert, responsive, and oriented, but did have a headache. CARDIAC: No chest pain or palpitations. GASTROINTESTINAL: She did have nausea and vomiting. She has no diarrhea or abdominal pain. PULMONARY: She has cough that is nonproductive. No hemoptysis or secretions. SKIN: No rash or itching. EXTREMITIES: No extremity pain. NEUROLOGIC: No seizures. She does have headache. GENITOURINARY: No dysuria or frequency. PAST MEDICAL HISTORY: Includes the following, the patient has a history of pulmonary nodule, but otherwise no other significant past medical history. No history of diabetes or hypertension. No history of cancer or heart disease. ALLERGIES: Include cephalexin, sulfamethoxazole, and trimethoprim. She cannot tolerate Bactrim and cephalexin, I believe she had hives when she was younger; however, she is tolerating Zosyn well and she says she has tolerated penicillin in the past. SOCIAL HISTORY: Negative for smoking, alcohol, or drug abuse. FAMILY HISTORY: Noncontributory. MEDICATIONS: Upon reviewing the MAR, she is on the following medications. She is put on Tamiflu, vancomycin, Zosyn, and azithromycin. She is also on other medications. She is on Mobic or meloxicam, albuterol treatments, morphine, Zoloft, Tylenol, Pepcid, MOM, Zofran, and Ambien. Outside medications noted and reconciliated. PHYSICAL EXAMINATION: VITAL SIGNS: The patient has been febrile. Most recent temperature 100.2. T-max 100.6. Currently temperature 100.2, pulse rate 79, respiratory rate 20. Saturation 95% on FiO2 3 liters or 32%. Respiratory rate has been as high as 25 and heart rate has been as high as 123. GENERAL: Alert, responsive, oriented x3, in no acute distress. She has O2 on nasal cannula. HEAD AND NECK: Oral exam, no thrush. Eye exam, no icterus. Normocephalic. Neck is supple. HEART: Regular. No gallop or murmur. ABDOMEN: Soft. Positive bowel sounds. Nontender. LUNGS: Bilateral rhonchi, rales, and crackles. SKIN: No rash. MUSCULOSKELETAL: No effusion. Legs are without cellulitis. PERIPHERAL VASCULAR: No cyanosis or gangrene. GENITOURINARY: No Trejo. LINE SITES: Without phlebitis. LABORATORY DATA: UA was leukocyte esterase negative. Creatinine 1.7 and sodium 133. LFTs noted. White count 12.2 and hemoglobin 15.1. Serology has been ordered. IMAGING STUDIES: CT scan of the chest showed bilateral pulmonary edema and infiltrates. Cannot exclude underlying pulmonary lesions. She also has small effusions and I believe nodules seen also, underlying pulmonary nodule was seen also per the records. Chest x-ray showed bilateral infiltrates versus edema. CT scan of the head showed no acute abnormality. ASSESSMENT AND PLAN: 1. The patient has, what looks like, pneumonia, fevers, elevated white count, possible underlying sepsis secondary to pneumonia. Etiology of pneumonia is unclear at this time. She certainly could have community-acquired pneumonia. Her influenza screen is negative; however, it is not a PCR test and thus reduces the sensitivity. Certainly, this could be a viral pneumonia, also underlying bacterial pneumonia such as MRSA especially in the view of if it is a viral pneumonia or viral syndrome or some type of viral infection. She is at risk for MRSA infection. She is at risk for atypical pathogens such as Streptococcus pneumoniae, Legionella, Mycoplasma as a source of pneumonia, less likely gram-negative pneumonia. At this time, I will continue vancomycin, Zosyn, and azithromycin to cover community-acquired pneumonia including MRSA and gram negatives and Streptococcus pneumoniae and also continue azithromycin to cover atypicals. Also, we will add Tamiflu to treat for influenzas, possible influenzae pneumonia especially in view of this time of the year this season. We have entered influenza season. Continue antibiotics vancomycin, Zosyn, azithromycin, and Tamiflu. Check sputum culture, laboratories, chest x-ray, and serology. The patient also is possibly septic. We will watch fevers or leukocytosis. 2. Less likely pneumonia will be cocci or tuberculosis pneumonia especially in view of the acuity. She said this has happened over several days. With regard to cocci, the incubation period is usually at least 7 days prior to symptoms after exposure and TB will be unlikely in this scenario. There is no cavity seen on the CT scan. We will also check for cocci and cryptococcus, but I will not start Diflucan unless the patient is refractory to current regimen. 3. No other significant past medical history. 4. History of pulmonary nodule in the past per the patient. 5. Acute kidney injury with elevated creatinine, likely dehydration. 6. Nausea and vomiting. 7. Headache. 8. No evidence of neck stiffness. 9. Breathing treatments per Pulmonary Medicine. 10. Allergies to cephalexin, sulfamethoxazole, and trimethoprim. She tolerated Zosyn. 11. Social history is negative. 12. Family history is noncontributory. 13. MAR was noted. 14. Case was discussed with the RN. 15. Case discussed with pharmacy. 16. Case was discussed with the patient and the patient's family. 17. Case discussed with Dr. Roper. 18. Continue treatment per primary consultants. 19. Notes and records were noted. 20. Orders were entered. Naz Sainz M.D. DR: SAMSON JOB#: [id number] CC:
[2018-07-18] VITALS: BP 127/83
[2018-07-18] MEDS: Albuterol/Ipratropium 3ml neb HHN SCH ×3 (01:17→12:36)
[2018-07-18 04:00] VITALS: BP 105/74
[2018-07-18] MEDS: Piperacillin/Tazobactam 3.375 GM in NS 110 ML IVPB SCH (05:29)
[2018-07-18 08:00] VITALS: BP 111/74
[2018-07-18] MEDS: Sertraline 100mg tab ORAL SCH (08:16)
[2018-07-18] MEDS: Meloxicam 15 MG TAB ORAL SCH (08:17)
[2018-07-18] MEDS ORDERED: Excedrin Migraine tab ORAL PRN ×2 (09:15→20:53)
[2018-07-18] MEDS ORDERED: Milk of Magnesia 30ml Ud ORAL PRN (10:00)
--- NOTE | 2018-07-18 10:32 | Cardiology Report ---
APPROVED REPORT EXAM: Two-dimensional and M-mode echocardiogram with Doppler and color Doppler. INDICATION EJECTION FRACTION M-Mode DIMENSIONS IVSd1.0 (0.7-1.1cm)Left Atrium (MM)3.3 (1.6-4.0cm) LVDd4.8 (3.5-5.6cm)Aortic Root2.8 (2.0-3.7cm) PWd1.0 (0.7-1.1cm)Aortic Cusp Exc.1.7 (1.5-2.0cm) IVSs1.7 cm LVDs3.4 (2.5-4.0cm) PWs1.0 cm Normal left ventricular chamber size, systolic function and wall motion . Left ventricular ejection fraction estimated to be 65-70%. No evidence of left ventricular hypertrophy. No evidence of pericardial effusion. Large pleural effusion present . All other cardiac chamber sizes are within normal limits. Focal aortic valve sclerosis with adequate cusp excursion. Thickened mitral valve leaflets with normal excursion. Mitral annulus and aortic root calcification. Pulmonic valve not well visualized. Normal tricuspid valve structure. Pacemaker wire present in the right side chambers. IVC at normal size cm with physiologic collapse . A color flow and spectral Doppler study was performed and revealed: No aortic regurgitation. Mild mitral regurgitation. Mitral diastolic velocities suggest reduced left ventricular relaxation c/w mild LV diastolic dysfunction (Grade I ). Mild tricuspid regurgitation. Tricuspid systolic velocities suggests peak right ventricular systolic pressure of 30 mmHg.
[2018-07-18 12:00] VITALS: BP 121/79
--- NOTE | 2018-07-18 12:25 | Infectious Diseases Prog Note ---
Assessment/Plan Assessment/Plan A) 1) sob, hypoxia, + CT scan with infiltrates/nodules - ? pneumonia - ? cap, ? viral, ? mrsa, ? other 2) rule out other process - ? vasculitis, ? malignancy, ct without PE 3) sepsis, nirav, leukocytosis, fevers, tachypnea, tachycardia 4) pmh - depression 5) allergies - cephalexin, sulfa, tolerates zosyn/pcn 6) fh-nc, sh-negative, mar noted, notes and records noted 7) d/w RN P) 1) zosyn, clindamycin, azithromycin, tamiflu - patient cannot tolerate vancomycin - had reaction yesterday - cannot use zyvox secondary to drug interaction with zoloft 2) check sc, labs, serology and chest x-ray 3) d/w Dr. Holm, d/w Dr. Roper 4) continue treatment per primary and consultants 5) d/w mother and patient 6) consider transfer to higher level of care for possible bronchoscopy and lung biopsy Subjective Constitutional: Reports: other - + headache ; Denies: fever HEENT: Reports: congestion Respiratory: Reports: shortness of breath Cardiovascular: Denies: chest pain Gastrointestinal/Abdominal: Reports: other - no abdominal pain ; Denies: nausea , vomiting, diarrhea Neurologic: Reports: headache Psychiatric: Denies: depression Skin: Denies: rash Hematologic: Denies: bleeding Musculoskeletal: Reports: pain Allergies: Coded Allergies: CEPHALEXIN (Verified Allergy, Unknown, 07/16/18) SULFAMETHOXAZOLE (Verified Allergy, Unknown, 07/16/18) TRIMETHOPRIM (Verified Allergy, Unknown, 07/16/18) Objective Vital Signs Last 24 Hour Vital Signs Date Time Temp Pulse Resp B/P (MAP) Pulse Ox O2 Delivery O2 Flow Rate FiO2 07/18/18 09:00 Room Air 07/18/18 08:05 94 07/18/18 08:00 98.0 90 18 111/74 (86) 92 07/18/18 07:36 92 20 93 Nasal Cannula 4.0 36 07/18/18 07:26 90 20 92 Venturi Mask 15.0 07/18/18 04:00 98.5 92 24 105/74 (84) 97 07/18/18 04:00 83 07/18/18 01:33 92 20 92 Nasal Cannula 4.0 36 07/18/18 01:22 92 20 92 Nasal Cannula 4.0 36 07/18/18 00:31 77 07/18/18 00:00 98.2 68 18 127/83 (98) 96 07/17/18 21:00 Nasal Cannula 2.0 07/17/18 20:00 97.3 73 20 128/88 (101) 96 07/17/18 20:00 70 07/17/18 19:32 83 22 92 Nasal Cannula 4.0 36 07/17/18 19:28 82 22 92 Nasal Cannula 4.0 36 07/17/18 16:00 98.5 80 18 100/61 (74) 99 07/17/18 15:58 74 07/17/18 12:36 79 20 95 Nasal Cannula 3.0 32 07/17/18 12:27 76 20 91 Nasal Cannula 3.0 32 Height (Feet): 5 Height (Inches): 4.00 Weight (Pounds): 125 General Appearance: no acute distress HEENT: normocephalic, atraumatic, anicteric Respiratory/Chest: crackles/rales, rhonchi - bilaterally Cardiovascular: normal rate, regular rhythm, no gallop/murmur, no JVD Abdomen: normal bowel sounds, soft, non tender, non distended Genitourinary: other - no pulido Extremities: no cyanosis Skin: no rash Neurologic/Psychiatric: service desk lead II-XII grossly normal, alert, oriented x 3, responsive Lymphatic: no neck adenopathy Musculoskeletal: no effusion Objective CT chest - IMPRESSION: 1. No PE or aortic dissection. 2. Bilateral pulmonary edema/infiltrates. Cannot exclude underlying pulmonary lesion, consider followup to ensure resolution. 3. Small bilateral pleural effusions. Chest x-ray - 07/16 - FINDINGS: Lungs: Bilateral pulmonary infiltrates/edema. Pleural space: Unremarkable. No pneumothorax. Heart: Unremarkable. No cardiomegaly. Mediastinum: Unremarkable. Bones/joints: Unremarkable. IMPRESSION: Bilateral pulmonary infiltrates/edema. Microbiology Date/Time Source Procedure Growth Status 07/16/18 16:05 Blood Blood Culture - Preliminary NO GROWTH AFTER 24 HOURS Resulted 07/16/18 15:55 Blood Blood Culture - Preliminary NO GROWTH AFTER 24 HOURS Resulted 07/16/18 16:55 Nasal Nares Influenza Types A,B Antigen (SONAL) - Final Complete Laboratory Tests Test 07/17/18 15:45 07/18/18 01:46 07/18/18 02:23 White Blood Count 11.2 K/UL (4.8-10.8) H Red Blood Count 4.12 M/UL (4.20-5.40) L Hemoglobin 12.4 G/DL (12.0-16.0) Hematocrit 35.9 % (37.0-47.0) L Mean Corpuscular Volume 87 FL (80-99) Mean Corpuscular Hemoglobin 30.0 PG (27.0-31.0) Mean Corpuscular Hemoglobin Concent 34.5 G/DL (32.0-36.0) Red Cell Distribution Width 11.7 % (11.6-14.8) Platelet Count 140 K/UL (150-450) L Mean Platelet Volume 9.3 FL (6.5-10.1) Neutrophils (%) (Auto) % (45.0-75.0) Lymphocytes (%) (Auto) % (20.0-45.0) Monocytes (%) (Auto) % (1.0-10.0) Eosinophils (%) (Auto) % (0.0-3.0) Basophils (%) (Auto) % (0.0-2.0) Differential Total Cells Counted 100 Neutrophils % (Manual) 87 % (45-75) H Lymphocytes % (Manual) 3 % (20-45) L Monocytes % (Manual) 8 % (1-10) Eosinophils % (Manual) 1 % (0-3) Basophils % (Manual) 0 % (0-2) Band Neutrophils 1 % (0-8) Platelet Estimate Adequate Platelet Morphology Normal Red Blood Cell Morphology Normal Sodium Level 134 MMOL/L (136-145) L Potassium Level 3.9 MMOL/L (3.5-5.1) Chloride Level 103 MMOL/L (98-107) Carbon Dioxide Level 22 MMOL/L (21-32) Anion Gap 9 mmol/L (5-15) Blood Urea Nitrogen 18 mg/dL (7-18) Creatinine 1.0 MG/DL (0.55-1.30) Estimat Glomerular Filtration Rate 57.6 mL/min (>60) Glucose Level 123 MG/DL (74-106) H Calcium Level 7.4 MG/DL (8.5-10.1) L Total Bilirubin 0.2 MG/DL (0.2-1.0) Aspartate Amino Transf (AST/SGOT) 17 U/L (15-37) Alanine Aminotransferase (ALT/SGPT) 18 U/L (12-78) Alkaline Phosphatase 45 U/L (46-116) L Lactate Dehydrogenase 128 U/L (81-234) Total Protein 6.1 G/DL (6.4-8.2) L Albumin 2.1 G/DL (3.4-5.0) L Globulin 4.0 g/dL Coccidioides Antibody (Comp Fix) Pending Mycoplasma pneumoniae IgG Antibody Pending Mycoplasma pneumoniae IgM Ab Titer Pending Urine Legionella Antigen Pending Arterial Blood pH 7.370 (7.350-7.450) Arterial Blood Partial Pressure CO2 37.0 mmHg (35.0-45.0) Arterial Blood Partial Pressure O2 82.0 mmHg (75.0-100.0) Arterial Blood HCO3 21.2 mmol/L (22.0-26.0) L Arterial Blood Oxygen Saturation 96.0 % (95-100) Arterial Blood Base Excess -3.4 (-2-2) L Donato Test Positive Current Medications Medications (Trade) Dose Ordered Sig/Dayanara Route PRN Reason Start Time Stop Time Status Last Admin Dose Admin Acetaminophen (Tylenol) 650 mg Q4H PRN ORAL Mild Pain (Pain Scale 1-3) 07/16/18 20:15 08/15/18 20:14 07/16/18 22:14 Acetaminophen (Tylenol) 650 mg Q4H PRN ORAL fever 07/16/18 20:15 08/15/18 20:14 Acetaminophen/ Aspirin/Caffeine (Excedrin Migraine) 1 ea Q6H PRN ORAL migraine 07/18/18 09:15 08/17/18 09:14 Albuterol/ Ipratropium (Albuterol/ Ipratropium) 3 ml Q6HRT HHN 07/17/18 01:00 07/22/18 00:59 07/18/18 07:20 Azithromycin 500 mg/Dextrose 275 ml @ 275 mls/hr Q24H IV 07/17/18 21:00 07/24/18 20:59 07/17/18 20:51 Dextrose/Sodium Chloride 1,000 ml @ 75 mls/hr [id number] IV 07/16/18 21:15 08/15/18 21:14 07/17/18 22:11 Famotidine (Pepcid) 20 mg DAILY ORAL 07/16/18 20:15 08/15/18 20:14 07/18/18 08:17 Iopamidol (Isovue-370 150ml) 150 ml NOW PRN INJ Radiology Procedure 07/16/18 16:45 07/18/18 16:42 Lorazepam (Ativan) 1 mg Q4H PRN ORAL For Anxiety 07/17/18 20:45 07/24/18 20:44 07/17/18 20:51 Magnesium Hydroxide (Mom) 30 ml BID PRN ORAL Constipation 07/18/18 10:00 08/17/18 09:59 07/18/18 10:14 Meloxicam (Mobic) 15 mg DAILY ORAL 07/17/18 09:00 08/16/18 08:59 07/18/18 08:17 Morphine Sulfate (Morphine Sulfate) 2 mg Q3H PRN IVP For Pain 07/16/18 23:45 07/23/18 23:44 07/17/18 22:12 Ondansetron HCl (Zofran) 4 mg Q4H PRN IVP Nausea & Vomiting 07/17/18 21:00 08/16/18 20:59 07/18/18 11:17 Oseltamivir Phosphate (Tamiflu) 75 mg BID ORAL 07/18/18 18:00 07/23/18 17:59 Sertraline HCl (Zoloft) 100 mg DAILY ORAL 07/16/18 20:15 08/15/18 20:14 07/18/18 08:16 Zolpidem Tartrate (Ambien) 5 mg HSPRN PRN ORAL Insomnia 07/16/18 20:15 07/23/18 20:14 07/16/18 22:12 Naz Sainz MD Jul 18, 2018 12:25
--- NOTE | 2018-07-18 12:48 | General Progress Note ---
Assessment/Plan Problem List: (1) Pneumonia ICD Codes: J18.9 - Pneumonia, unspecified organism SNOMED: 277911817 (2) Mediastinal lymphadenopathy ICD Codes: R59.0 - Localized enlarged lymph nodes SNOMED: 18545668 (3) Axillary adenopathy ICD Codes: R59.0 - Localized enlarged lymph nodes SNOMED: 618662301 (4) Bilateral pleural effusion ICD Codes: J90 - Pleural effusion, not elsewhere classified SNOMED: 769011665 (5) Syncope ICD Codes: R55 - Syncope and collapse SNOMED: 041847321 Assessment/Plan IV Abxs bronchodilators Discussed with ID , Pulm and family Transfer to [facility] for possible lung biopsy Subjective Allergies: Coded Allergies: CEPHALEXIN (Verified Allergy, Unknown, 07/16/18) SULFAMETHOXAZOLE (Verified Allergy, Unknown, 07/16/18) TRIMETHOPRIM (Verified Allergy, Unknown, 07/16/18) Subjective SOB Objective Last 24 Hour Vital Signs Date Time Temp Pulse Resp B/P (MAP) Pulse Ox O2 Delivery O2 Flow Rate FiO2 07/18/18 12:37 85 20 95 Venturi Mask 15.0 07/18/18 09:00 Room Air 07/18/18 08:05 94 07/18/18 08:00 98.0 90 18 111/74 (86) 92 07/18/18 07:36 92 20 93 Nasal Cannula 4.0 36 07/18/18 07:26 90 20 92 Venturi Mask 15.0 07/18/18 04:00 98.5 92 24 105/74 (84) 97 07/18/18 04:00 83 07/18/18 01:33 92 20 92 Nasal Cannula 4.0 36 07/18/18 01:22 92 20 92 Nasal Cannula 4.0 36 07/18/18 00:31 77 07/18/18 00:00 98.2 68 18 127/83 (98) 96 07/17/18 21:00 Nasal Cannula 2.0 07/17/18 20:00 97.3 73 20 128/88 (101) 96 07/17/18 20:00 70 07/17/18 19:32 83 22 92 Nasal Cannula 4.0 36 07/17/18 19:28 82 22 92 Nasal Cannula 4.0 36 07/17/18 16:00 98.5 80 18 100/61 (74) 99 07/17/18 15:58 74 Intake and Output 07/17/18 07/18/18 18:59 06:59 Intake Total 242.5 ml 1525.2 ml Balance 242.5 ml 1525.2 ml Intake Oral 240 ml IV Total 102.5 ml 1285.2 ml Other 140 ml # Voids 2 2 Laboratory Tests 07/17/18 15:45: White Blood Count 11.2H, Red Blood Count 4.12L, Hemoglobin 12.4, Hematocrit 35.9L, Mean Corpuscular Volume 87, Mean Corpuscular Hemoglobin 30.0, Mean Corpuscular Hemoglobin Concent 34.5, Red Cell Distribution Width 11.7, Platelet Count 140L, Mean Platelet Volume 9.3, Neutrophils (%) (Auto) , Lymphocytes (%) ( Auto) , Monocytes (%) (Auto) , Eosinophils (%) (Auto) , Basophils (%) (Auto) , Differential Total Cells Counted 100, Neutrophils % (Manual) 87H, Lymphocytes % (Manual) 3L, Monocytes % (Manual) 8, Eosinophils % (Manual) 1, Basophils % ( Manual) 0, Band Neutrophils 1, Platelet Estimate Adequate, Platelet Morphology Normal, Red Blood Cell Morphology Normal, Sodium Level 134L, Potassium Level 3.9 , Chloride Level 103, Carbon Dioxide Level 22, Anion Gap 9, Blood Urea Nitrogen 18, Creatinine 1.0, Estimat Glomerular Filtration Rate 57.6, Glucose Level 123H , Calcium Level 7.4L, Total Bilirubin 0.2, Aspartate Amino Transf (AST/SGOT) 17 , Alanine Aminotransferase (ALT/SGPT) 18, Alkaline Phosphatase 45L, Lactate Dehydrogenase 128, Total Protein 6.1L, Albumin 2.1L, Globulin 4.0, Coccidioides Antibody (Comp Fix) [Pending], Mycoplasma pneumoniae IgG Antibody [Pending], Mycoplasma pneumoniae IgM Ab Titer [Pending] 07/18/18 01:46: Urine Legionella Antigen [Pending] 07/18/18 02:23: Arterial Blood pH 7.370, Arterial Blood Partial Pressure CO2 37.0, Arterial Blood Partial Pressure O2 82.0, Arterial Blood HCO3 21.2L, Arterial Blood Oxygen Saturation 96.0, Arterial Blood Base Excess -3.4L, Donato Test Positive Height (Feet): 5 Height (Inches): 4.00 Weight (Pounds): 125 Cardiovascular: normal rate Respiratory/Chest: rhonchi - bilaterally Edema: no edema noted Generalized Jc Holm MD Jul 18, 2018 12:48
[2018-07-18] MEDS ORDERED: Albuterol/Ipratropium 3ml neb HHN PRN ×3 (13:15→20:53)
[2018-07-18] MEDS ORDERED: Clindamycin 600mg 50 ML IV SCH (14:00)
[2018-07-18] MEDS ORDERED: Zosyn 4.5gm q8h **Extended infusion IVPB SCH ×2 (14:00)
[2018-07-18] MEDS: D5 1/2NS 1,000 ML IV SCH ×2 (14:25→21:24)
--- NOTE | 2018-07-18 14:49 | Pulmonology Progress Note ---
Assessment/Plan Assessment/Plan HPI Patient is a 57-year-old female visiting [place], who presented after increased right-sided headache and vomiting. The patient reports having a syncopal episode after standing, having fallen and hit her head. She reports having a persistent headache as well as multiple episodes of vomiting. She reports having generalized body aches and chills. She states that she had not been having any diarrhea. She reports having a nonproductive cough. Previous neck surgery to her neck where she had a nerve ball removed. Patient had prior history of lung nodule and had previously had a CT imaging which showed no change in the nodule.The patient had been taking hormone replacement therapy had recently flown from [place]. Patient denies recent foreign travel.The patient had syncopal episode after standing while in the bathroom. She reported feeling lightheaded prior to syncope. Denies sick contacts, no h/o immunosupression/connective tissue disease On Antibiotics per ID Allergies: Coded Allergies: CEPHALEXIN (Verified Allergy, Unknown, 07/16/18) SULFAMETHOXAZOLE (Verified Allergy, Unknown, 07/16/18) TRIMETHOPRIM (Verified Allergy, Unknown, 07/16/18) Patient History Past Medical History: unable to obtain Reviewed Nursing Documentation: PMH: Agreed; PSxH: Agreed Nursing Documentation-PMH Past Medical History: No Stated History Review of Systems All Other Systems: negative except mentioned in HPI Physical Exam Vital Signs Noted Sp02 EP Interpretation: reviewed, normal General Appearance: normal inspection, alert, no apparent distress, GCS 15 Head: other - right parietal scalp laceration 1cm linear, dried blood Eyes: normal eye exam, PERRL, EOMI, lids + conjunctiva normal, no hyphema, no racoon eyes ENT: normal ENT inspection, TMs + canals normal, oropharynx normal, no ruvalcaba signs Neck: trach midline, no bony tend, full range of motion without pain Respiratory: effort normal, no retractions, speaking in full sentences Cardiovascular: regular rate, rhythm, no JVD Cardiovascular #2: 2+ radial (R), 2+ radial (L), 2+ dorsalis pedis (R), 2+ dorsalis pedis (L) Gastrointestinal: normal inspection, non-tender, non-distended, no rebound/ guarding, normal bowel sounds Genitourinary: normal inspection Musculoskeletal: normal inspection, normal ROM, non-tender, back normal Skin: no rash, normal palpation, other - superficial laceration to right parietal scalp Neurologic: normal inspection, CN II-XII intact, oriented x3, sensory intact, motor strength/tone normal, normal speech Psychiatric: normal inspection, judgment & insight normal, memory normal, mood normal, no suicidal/homicidal ideation Medical Decision Making Impression: Primary Impression: Syncope Head injury Bilateral pleural effusion Pneumonia Pulmonary Nodule Axillary adenopathy Mediastinal lymphadenopathy Plan IV fluids. IV Antibiotics HHN [employer] medications Out patient follow upof Pulmonary Nodule PPX O2 PRN CXR: Bilateral infiltrates CT Chest: No PE, Pulmonary nodule, Mediastinal LN Labs Test 07/16/18 15:48 07/16/18 17:15 White Blood Count 12.2 K/UL (4.8-10.8) Red Blood Count 4.96 M/UL (4.20-5.40) Hemoglobin 15.1 G/DL (12.0-16.0) Hematocrit 42.9 % (37.0-47.0) Mean Corpuscular Volume 87 FL (80-99) Mean Corpuscular Hemoglobin 30.4 PG (27.0-31.0) Mean Corpuscular Hemoglobin Concent 35.1 G/DL (32.0-36.0) Red Cell Distribution Width 11.5 % (11.6-14.8) Platelet Count 181 K/UL (150-450) Mean Platelet Volume 9.4 FL (6.5-10.1) Neutrophils (%) (Auto) % (45.0-75.0) Lymphocytes (%) (Auto) % (20.0-45.0) Monocytes (%) (Auto) % (1.0-10.0) Eosinophils (%) (Auto) % (0.0-3.0) Basophils (%) (Auto) % (0.0-2.0) Prothrombin Time 10.6 SEC (9.30-11.50) Prothromb Time International Ratio 1.0 (0.9-1.1) Activated Partial Thromboplast Time 29 SEC (23-33) D-Dimer 1.44 mg/L FEU (0.00-0.49) Sodium Level 133 MMOL/L (136-145) Potassium Level 5.0 MMOL/L (3.5-5.1) Chloride Level 100 MMOL/L (98-107) Carbon Dioxide Level 24 MMOL/L (21-32) Anion Gap 9 mmol/L (5-15) Blood Urea Nitrogen 31 mg/dL (7-18) Creatinine 1.7 MG/DL (0.55-1.30) Estimat Glomerular Filtration Rate 31.2 mL/min (>60) Glucose Level 120 MG/DL (74-106) Calcium Level 8.8 MG/DL (8.5-10.1) Total Bilirubin 0.5 MG/DL (0.2-1.0) Aspartate Amino Transf (AST/SGOT) 23 U/L (15-37) Alanine Aminotransferase (ALT/SGPT) 23 U/L (12-78) Alkaline Phosphatase 72 U/L (46-116) Total Protein 8.7 G/DL (6.4-8.2) Albumin 3.2 G/DL (3.4-5.0) Globulin 5.5 g/dL Albumin/Globulin Ratio 0.6 (1.0-2.7) EKG Diagnostic Results Rate: normal Rhythm: NSR ST Segments: no acute changes Rhythm Strip Diag. Results EP Interpretation: yes Rhythm: NSR, no PVC's, no ectopy CT Chest: 1. No PE or aortic dissection. 2. Bilateral pulmonary edema/infiltrates. Cannot exclude underlying pulmonary lesion, consider followup to ensure resolution. 3. Small bilateral pleural effusions. Subjective ROS Limited/Unobtainable: No Allergies: Coded Allergies: CEPHALEXIN (Verified Allergy, Unknown, 07/16/18) SULFAMETHOXAZOLE (Verified Allergy, Unknown, 07/16/18) TRIMETHOPRIM (Verified Allergy, Unknown, 07/16/18) Objective Last 24 Hour Vital Signs Date Time Temp Pulse Resp B/P (MAP) Pulse Ox O2 Delivery O2 Flow Rate FiO2 07/18/18 12:54 85 20 95 Non-Rebreather 14.0 07/18/18 12:37 85 20 95 Venturi Mask 14.0 07/18/18 09:00 Room Air 07/18/18 08:05 94 07/18/18 08:00 98.0 90 18 111/74 (86) 92 07/18/18 07:36 92 20 93 Nasal Cannula 4.0 36 07/18/18 07:26 90 20 92 Venturi Mask 14.0 07/18/18 04:00 98.5 92 24 105/74 (84) 97 11/12/18 04:00 83 07/18/18 01:33 92 20 92 Nasal Cannula 4.0 36 07/18/18 01:22 92 20 92 Nasal Cannula 4.0 36 07/18/18 00:31 77 07/18/18 00:00 98.2 68 18 127/83 (98) 96 07/17/18 21:00 Nasal Cannula 2.0 07/17/18 20:00 97.3 73 20 128/88 (101) 96 07/17/18 20:00 70 07/17/18 19:32 83 22 92 Nasal Cannula 4.0 36 07/17/18 19:28 82 22 92 Nasal Cannula 4.0 36 07/17/18 16:00 98.5 80 18 100/61 (74) 99 07/17/18 15:58 74 Intake and Output 07/17/18 07/18/18 19:00 07:00 Intake Total 215 ml 1552.7 ml Balance 215 ml 1552.7 ml Intake Oral 240 ml IV Total 75 ml 1312.7 ml Other 140 ml # Voids 2 2 Microbiology Date/Time Source Procedure Growth Status 07/16/18 16:05 Blood Blood Culture - Preliminary NO GROWTH AFTER 24 HOURS Resulted 07/16/18 15:55 Blood Blood Culture - Preliminary NO GROWTH AFTER 24 HOURS Resulted 07/16/18 16:55 Nasal Nares Influenza Types A,B Antigen (SONAL) - Final Complete Laboratory Tests 07/17/18 15:45: White Blood Count 11.2H, Red Blood Count 4.12L, Hemoglobin 12.4, Hematocrit 35.9L, Mean Corpuscular Volume 87, Mean Corpuscular Hemoglobin 30.0, Mean Corpuscular Hemoglobin Concent 34.5, Red Cell Distribution Width 11.7, Platelet Count 140L, Mean Platelet Volume 9.3, Neutrophils (%) (Auto) , Lymphocytes (%) ( Auto) , Monocytes (%) (Auto) , Eosinophils (%) (Auto) , Basophils (%) (Auto) , Differential Total Cells Counted 100, Neutrophils % (Manual) 87H, Lymphocytes % (Manual) 3L, Monocytes % (Manual) 8, Eosinophils % (Manual) 1, Basophils % ( Manual) 0, Band Neutrophils 1, Platelet Estimate Adequate, Platelet Morphology Normal, Red Blood Cell Morphology Normal, Sodium Level 134L, Potassium Level 3.9 , Chloride Level 103, Carbon Dioxide Level 22, Anion Gap 9, Blood Urea Nitrogen 18, Creatinine 1.0, Estimat Glomerular Filtration Rate 57.6, Glucose Level 123H , Calcium Level 7.4L, Total Bilirubin 0.2, Aspartate Amino Transf (AST/SGOT) 17 , Alanine Aminotransferase (ALT/SGPT) 18, Alkaline Phosphatase 45L, Lactate Dehydrogenase 128, Total Protein 6.1L, Albumin 2.1L, Globulin 4.0, Coccidioides Antibody (Comp Fix) [Pending], Mycoplasma pneumoniae IgG Antibody [Pending], Mycoplasma pneumoniae IgM Ab Titer [Pending] 07/18/18 01:46: Urine Legionella Antigen [Pending] 07/18/18 02:23: Arterial Blood pH 7.370, Arterial Blood Partial Pressure CO2 37.0, Arterial Blood Partial Pressure O2 82.0, Arterial Blood HCO3 21.2L, Arterial Blood Oxygen Saturation 96.0, Arterial Blood Base Excess -3.4L, Donato Test Positive 07/18/18 13:50: Cryptococcus Antigen [Pending], HIV (1&2) Antibody Rapid Negative Current Medications Medications (Trade) Dose Ordered Sig/Dayanara Route PRN Reason Start Time Stop Time Status Last Admin Dose Admin Acetaminophen (Tylenol) 650 mg Q4H PRN ORAL Mild Pain (Pain Scale 1-3) 07/16/18 20:15 08/15/18 20:14 07/16/18 22:14 Acetaminophen (Tylenol) 650 mg Q4H PRN ORAL fever 07/16/18 20:15 08/15/18 20:14 Acetaminophen/ Aspirin/Caffeine (Excedrin Migraine) 1 ea Q6H PRN ORAL migraine 07/18/18 09:15 08/17/18 09:14 Albuterol/ Ipratropium (Albuterol/ Ipratropium) 3 ml Q4H PRN HHN Shortness of Breath 07/18/18 13:15 07/23/18 13:14 Azithromycin 500 mg/Dextrose 275 ml @ 275 mls/hr Q24H IV 07/17/18 21:00 07/24/18 20:59 07/17/18 20:51 Clindamycin HCl/ Dextrose 50 ml @ 100 mls/hr EVERY 8 HOURS IV 07/18/18 14:00 07/25/18 13:59 07/18/18 14:28 Dextrose/Sodium Chloride 1,000 ml @ 75 mls/hr [id number] IV 07/16/18 21:15 08/15/18 21:14 07/18/18 14:25 Famotidine (Pepcid) 20 mg DAILY ORAL 07/16/18 20:15 08/15/18 20:14 07/18/18 08:17 Fluconazole/ Sodium Chloride 200 ml @ 200 mls/hr Q24H IV 07/18/18 14:00 07/25/18 13:59 Iopamidol (Isovue-370 150ml) 150 ml NOW PRN INJ Radiology Procedure 07/16/18 16:45 07/18/18 16:42 Lorazepam (Ativan) 1 mg Q4H PRN ORAL For Anxiety 07/17/18 20:45 07/24/18 20:44 07/17/18 20:51 Magnesium Hydroxide (Mom) 30 ml BID PRN ORAL Constipation 07/18/18 10:00 08/17/18 09:59 07/18/18 10:14 Meloxicam (Mobic) 15 mg DAILY ORAL 07/17/18 09:00 08/16/18 08:59 07/18/18 08:17 Morphine Sulfate (Morphine Sulfate) 2 mg Q3H PRN IVP For Pain 07/16/18 23:45 07/23/18 23:44 07/17/18 22:12 Ondansetron HCl (Zofran) 4 mg Q4H PRN IVP Nausea & Vomiting 07/17/18 21:00 08/16/18 20:59 07/18/18 11:17 Oseltamivir Phosphate (Tamiflu) 75 mg BID ORAL 07/18/18 18:00 07/23/18 17:59 Piperacillin Sod/ Tazobactam Sod 4.5 gm/Sodium Chloride 110 ml @ 27.5 mls/hr EVERY 8 HOURS IVPB 07/18/18 14:00 07/23/18 13:59 07/18/18 14:27 Sertraline HCl (Zoloft) 100 mg DAILY ORAL 07/16/18 20:15 08/15/18 20:14 07/18/18 08:16 Zolpidem Tartrate (Ambien) 5 mg HSPRN PRN ORAL Insomnia 07/16/18 20:15 07/23/18 20:14 11/10/18 22:12 Renny Roper MD Jul 18, 2018 14:49
[2018-07-18 16:00] VITALS: BP 131/85
[2018-07-18] MEDS ORDERED: Oseltamivir 75mg cap ORAL SCH (18:00)
[2018-07-18 20:00] VITALS: BP 147/87
[2018-07-18] MEDS ORDERED: Zolpidem 5mg tab ORAL PRN (20:54)
[2018-07-18] MEDS ORDERED: Morphine Sulfate 2mg/ml Inj IVP PRN (20:54)
[2018-07-18] MEDS: Azithromycin 500 MG in D5W 275 ML IV SCH (21:24)
[2018-07-18] MEDS: LORazepam 1mg tab ORAL PRN (21:40)
[2018-07-18] MEDS: Clindamycin 600mg 50 ML IV SCH (22:00)
[2018-07-18] MEDS: Piperacillin/Tazobactam 4.5 GM in NS 110 ML IVPB SCH (22:58)
[2018-07-19] VITALS: BP 126/69
[2018-07-19 04:00] VITALS: BP 121/78
[2018-07-19 05:35] LABS: HEMATOCRIT 31.5 % (37.0-47.0); HEMOGLOBIN 10.6 G/DL (12.0-16.0); MEAN CORPUSCULAR VOLUME 85 FL (80-99); PLATELET COUNT 142 K/UL (150-450); RED BLOOD COUNT 3.71 M/UL (4.20-5.40); WHITE BLOOD COUNT 11.3 K/UL (4.8-10.8)
[2018-07-19] MEDS: Clindamycin 600mg 50 ML IV SCH ×2 (05:38→14:36)
[2018-07-19 05:54] LABS: ALANINE AMINOTRANSFERASE 10 U/L (12-78); ALBUMIN 2.1 G/DL (3.4-5.0); ALBUMIN/GLOBULIN RATIO 0.5 (1.0-2.7); ALKALINE PHOSPHATASE 52 U/L (46-116); ANION GAP 10 mmol/L (5-15); ASPARTATE AMINO TRANSFERASE 20 U/L (15-37); BILIRUBIN,TOTAL 0.4 MG/DL (0.2-1.0); BLOOD UREA NITROGEN 11 mg/dL (7-18); CALCIUM 7.9 MG/DL (8.5-10.1); CARBON DIOXIDE 24 MMOL/L (21-32); CHLORIDE 104 MMOL/L (98-107); CREATININE 0.9 MG/DL (0.55-1.30); POTASSIUM 3.7 MMOL/L (3.5-5.1); SODIUM 137 MMOL/L (136-145)
[2018-07-19] MEDS: Piperacillin/Tazobactam 4.5 GM in NS 110 ML IVPB SCH ×3 (06:58→21:03)
[2018-07-19 07:33] VITALS: BP 131/83
[2018-07-19] MEDS: Oseltamivir 75mg cap ORAL SCH ×2 (08:33→17:19)
[2018-07-19] MEDS: Sertraline 100mg tab ORAL SCH (08:34)
[2018-07-19] MEDS: Meloxicam 15 MG TAB ORAL SCH (08:34)
[2018-07-19] MEDS ORDERED: Milk of Magnesia 30ml Ud ORAL PRN (09:00)
--- NOTE | 2018-07-19 10:00 | Diagnostic Imaging Report ---
Indication: Dyspnea Technique: One view of the chest Comparison: 07/16/2018 Findings: Much less optimal inspiration currently. Diffuse bilateral interstitial and airspace disease is probably unchanged allowing for differences in degree of inspiration. There is probably some pleural fluid now present bilaterally. Impression: Bilateral interstitial and airspace disease, infiltrates versus edema, probably not significantly changed over 3 days Low lung volumes currently. Suspect increasing bilateral pleural effusions
[2018-07-19] MEDS: D5 1/2NS 1,000 ML IV SCH ×2 (10:11→22:55)
[2018-07-19 12:00] VITALS: BP 122/79
--- NOTE | 2018-07-19 14:13 | Pulmonology Progress Note ---
Assessment/Plan Assessment/Plan HPI Patient is a 57-year-old female visiting [place], who presented after increased right-sided headache and vomiting. The patient reports having a syncopal episode after standing, having fallen and hit her head. She reports having a persistent headache as well as multiple episodes of vomiting. She reports having generalized body aches and chills. She states that she had not been having any diarrhea. She reports having a nonproductive cough. Previous neck surgery to her neck where she had a nerve ball removed. Patient had prior history of lung nodule and had previously had a CT imaging which showed no change in the nodule.The patient had been taking hormone replacement therapy had recently flown from [place]. Patient denies recent foreign travel.The patient had syncopal episode after standing while in the bathroom. She reported feeling lightheaded prior to syncope. Denies sick contacts, no h/o immunosupression/connective tissue disease Remains SOB, high O2 requirements CXR: Impression: Bilateral interstitial and airspace disease, infiltrates versus edema, probably not significantly changed over 3 days Low lung volumes currently. Suspect increasing bilateral pleural effusions Previous CT Angio negative for PE On Antibiotics per ID Allergies: Coded Allergies: CEPHALEXIN (Verified Allergy, Unknown, 07/16/18) SULFAMETHOXAZOLE (Verified Allergy, Unknown, 07/16/18) TRIMETHOPRIM (Verified Allergy, Unknown, 07/16/18) Patient History Past Medical History: unable to obtain Reviewed Nursing Documentation: PMH: Agreed; PSxH: Agreed Nursing Documentation-[facility] Past Medical History: No Stated History Review of Systems All Other Systems: negative except mentioned in HPI Physical Exam Vital Signs Noted Sp02 EP Interpretation: reviewed, normal General Appearance: normal inspection, alert, no apparent distress, GCS 15 Head: other - right parietal scalp laceration 1cm linear, dried blood Eyes: normal eye exam, PERRL, EOMI, lids + conjunctiva normal, no hyphema, no racoon eyes ENT: normal ENT inspection, TMs + canals normal, oropharynx normal, no ruvalcaba signs Neck: trach midline, no bony tend, full range of motion without pain Respiratory: effort normal, no retractions, speaking in full sentences Cardiovascular: regular rate, rhythm, no JVD Cardiovascular #2: 2+ radial (R), 2+ radial (L), 2+ dorsalis pedis (R), 2+ dorsalis pedis (L) Gastrointestinal: normal inspection, non-tender, non-distended, no rebound/ guarding, normal bowel sounds Genitourinary: normal inspection Musculoskeletal: normal inspection, normal ROM, non-tender, back normal Skin: no rash, normal palpation, other - superficial laceration to right parietal scalp Neurologic: normal inspection, CN II-XII intact, oriented x3, sensory intact, motor strength/tone normal, normal speech Psychiatric: normal inspection, judgment & insight normal, memory normal, mood normal, no suicidal/homicidal ideation Medical Decision Making Impression: Primary Impression: Syncope Head injury Bilateral pleural effusion Pneumonia Pulmonary Nodule Axillary adenopathy Mediastinal lymphadenopathy Plan IV fluids. IV Antibiotics per ID [facility] [employer] medications Out patient follow up of Pulmonary Nodule PPX O2 PRN - start BiPAP PRN, repeat ABG CXR: Bilateral infiltrates CT Chest: No PE, Pulmonary nodule, Mediastinal LN Labs Test 07/16/18 15:48 07/16/18 17:15 White Blood Count 12.2 K/UL (4.8-10.8) Red Blood Count 4.96 M/UL (4.20-5.40) Hemoglobin 15.1 G/DL (12.0-16.0) Hematocrit 42.9 % (37.0-47.0) Mean Corpuscular Volume 87 FL (80-99) Mean Corpuscular Hemoglobin 30.4 PG (27.0-31.0) Mean Corpuscular Hemoglobin Concent 35.1 G/DL (32.0-36.0) Red Cell Distribution Width 11.5 % (11.6-14.8) Platelet Count 181 K/UL (150-450) Mean Platelet Volume 9.4 FL (6.5-10.1) Neutrophils (%) (Auto) % (45.0-75.0) Lymphocytes (%) (Auto) % (20.0-45.0) Monocytes (%) (Auto) % (1.0-10.0) Eosinophils (%) (Auto) % (0.0-3.0) Basophils (%) (Auto) % (0.0-2.0) Prothrombin Time 10.6 SEC (9.30-11.50) Prothromb Time International Ratio 1.0 (0.9-1.1) Activated Partial Thromboplast Time 29 SEC (23-33) D-Dimer 1.44 mg/L FEU (0.00-0.49) Sodium Level 133 MMOL/L (136-145) Potassium Level 5.0 MMOL/L (3.5-5.1) Chloride Level 100 MMOL/L (98-107) Carbon Dioxide Level 24 MMOL/L (21-32) Anion Gap 9 mmol/L (5-15) Blood Urea Nitrogen 31 mg/dL (7-18) Creatinine 1.7 MG/DL (0.55-1.30) Estimat Glomerular Filtration Rate 31.2 mL/min (>60) Glucose Level 120 MG/DL (74-106) Calcium Level 8.8 MG/DL (8.5-10.1) Total Bilirubin 0.5 MG/DL (0.2-1.0) Aspartate Amino Transf (AST/SGOT) 23 U/L (15-37) Alanine Aminotransferase (ALT/SGPT) 23 U/L (12-78) Alkaline Phosphatase 72 U/L (46-116) Total Protein 8.7 G/DL (6.4-8.2) Albumin 3.2 G/DL (3.4-5.0) Globulin 5.5 g/dL Albumin/Globulin Ratio 0.6 (1.0-2.7) EKG Diagnostic Results Rate: normal Rhythm: NSR ST Segments: no acute changes Rhythm Strip Diag. Results EP Interpretation: yes Rhythm: NSR, no PVC's, no ectopy CT Chest: 1. No PE or aortic dissection. 2. Bilateral pulmonary edema/infiltrates. Cannot exclude underlying pulmonary lesion, consider followup to ensure resolution. 3. Small bilateral pleural effusions. Subjective ROS Limited/Unobtainable: No Allergies: Coded Allergies: CEPHALEXIN (Verified Allergy, Unknown, 07/16/18) SULFAMETHOXAZOLE (Verified Allergy, Unknown, 07/16/18) TRIMETHOPRIM (Verified Allergy, Unknown, 07/16/18) Objective Last 24 Hour Vital Signs Date Time Temp Pulse Resp B/P (MAP) Pulse Ox O2 Delivery O2 Flow Rate FiO2 07/19/18 12:00 Non-Rebreather 10.0 07/19/18 12:00 99.1 85 28 122/79 (93) 94 07/19/18 07:44 127 07/19/18 07:33 97.7 92 22 131/83 (99) 93 07/19/18 04:00 97.0 87 28 121/78 (92) 95 07/19/18 04:00 82 07/19/18 04:00 Non-Rebreather 10.0 07/19/18 00:00 99.6 108 32 126/69 (88) 94 07/19/18 00:00 121 07/19/18 00:00 Non-Rebreather 10.0 07/18/18 21:47 114 20 92 Non-Rebreather 15.0 100 07/18/18 21:38 109 24 90 Non-Rebreather 15.0 100 07/18/18 21:00 Non-Rebreather 10.0 07/18/18 20:00 86 07/18/18 20:00 98.2 105 32 147/87 (107) 92 07/18/18 16:00 97.4 92 20 131/85 (100) 94 07/18/18 15:11 99 Intake and Output 07/18/18 07/19/18 18:59 06:59 Intake Total 102.5 ml 820.91 ml Output Total 200 ml Balance -97.5 ml 820.91 ml Intake Oral 240 ml IV Total 102.5 ml 580.91 ml Output Urine Total 200 ml # Voids 4 # Bowel Movements 1 2 Microbiology Date/Time Source Procedure Growth Status 07/16/18 16:05 Blood Blood Culture - Preliminary NO GROWTH AFTER 48 HOURS Resulted 07/16/18 15:55 Blood Blood Culture - Preliminary NO GROWTH AFTER 48 HOURS Resulted 07/16/18 16:55 Nasal Nares Influenza Types A,B Antigen (SONAL) - Final Complete Laboratory Tests 07/19/18 04:00: White Blood Count 11.3H, Red Blood Count 3.71L, Hemoglobin 10.6L, Hematocrit 31.5L, Mean Corpuscular Volume 85, Mean Corpuscular Hemoglobin 28.5, Mean Corpuscular Hemoglobin Concent 33.5, Red Cell Distribution Width 11.0L, Platelet Count 142L, Mean Platelet Volume 8.5, Neutrophils (%) (Auto) , Lymphocytes (%) (Auto) , Monocytes (%) (Auto) , Eosinophils (%) (Auto) , Basophils (%) (Auto) , Differential Total Cells Counted 100, Neutrophils % ( Manual) 91H, Lymphocytes % (Manual) 4L, Monocytes % (Manual) 5, Eosinophils % ( Manual) 0, Basophils % (Manual) 0, Band Neutrophils 0, Platelet Estimate DecreasedL, Platelet Morphology Normal, Hypochromasia 1+, Anisocytosis 1+, Sodium Level 137, Potassium Level 3.7, Chloride Level 104, Carbon Dioxide Level 24, Anion Gap 10, Blood Urea Nitrogen 11, Creatinine 0.9, Estimat Glomerular Filtration Rate > 60, Glucose Level 114H, Calcium Level 7.9L, Total Bilirubin 0.4, Aspartate Amino Transf (AST/SGOT) 20, Alanine Aminotransferase (ALT/SGPT) 10L, Alkaline Phosphatase 52, Total Protein 6.7, Albumin 2.1L, Globulin 4.6, Albumin/Globulin Ratio 0.5L Current Medications Medications (Trade) Dose Ordered Sig/Dayanara Route PRN Reason Start Time Stop Time Status Last Admin Dose Admin Acetaminophen (Tylenol) 650 mg Q4H PRN ORAL Mild Pain (Pain Scale 1-3) 07/18/18 20:53 08/17/18 20:52 Acetaminophen (Tylenol) 650 mg Q4H PRN ORAL fever 07/18/18 20:53 08/17/18 20:52 Acetaminophen/ Aspirin/Caffeine (Excedrin Migraine) 1 ea Q6H PRN ORAL migraine 07/18/18 20:53 08/17/18 20:52 07/19/18 11:09 Albuterol/ Ipratropium (Albuterol/ Ipratropium) 3 ml Q4H PRN HHN Shortness of Breath 07/18/18 20:53 07/23/18 20:52 07/18/18 21:38 Azithromycin 500 mg/Dextrose 275 ml @ 275 mls/hr Q24H IV 07/18/18 21:00 07/24/18 20:59 07/18/18 21:24 Clindamycin HCl/ Dextrose 50 ml @ 100 mls/hr EVERY 8 HOURS IV 07/18/18 22:00 07/25/18 13:59 07/19/18 05:38 Dextrose/Sodium Chloride 1,000 ml @ 75 mls/hr [id number] IV 07/18/18 20:52 08/15/18 20:51 07/19/18 10:11 Famotidine (Pepcid) 20 mg DAILY ORAL 07/19/18 09:00 08/15/18 20:14 07/19/18 08:34 Fluconazole/ Sodium Chloride 200 ml @ 200 mls/hr Q24H IV 07/19/18 14:00 07/25/18 13:59 07/19/18 13:44 Lorazepam (Ativan) 1 mg Q4H PRN ORAL For Anxiety 07/18/18 20:53 07/25/18 20:52 07/18/18 21:40 Magnesium Hydroxide (Mom) 30 ml BIDPRN PRN ORAL Constipation 07/19/18 09:00 08/18/18 08:59 Meloxicam (Mobic) 15 mg DAILY ORAL 07/19/18 09:00 08/16/18 08:59 07/19/18 08:34 Morphine Sulfate (Morphine Sulfate) 2 mg Q3H PRN IVP For Pain 07/18/18 20:54 07/23/18 20:53 07/19/18 00:19 Ondansetron HCl (Zofran) 4 mg Q4H PRN IVP Nausea & Vomiting 07/18/18 20:52 08/16/18 20:51 07/19/18 10:11 Oseltamivir Phosphate (Tamiflu) 75 mg BID ORAL 07/19/18 09:00 07/23/18 17:59 07/19/18 08:33 Piperacillin Sod/ Tazobactam Sod 4.5 gm/Sodium Chloride 110 ml @ 27.5 mls/hr EVERY 8 HOURS IVPB 07/18/18 22:00 07/23/18 13:59 07/19/18 13:43 Sertraline HCl (Zoloft) 100 mg DAILY ORAL 07/19/18 09:00 08/15/18 20:14 07/19/18 08:34 Zolpidem Tartrate (Ambien) 5 mg HSPRN PRN ORAL Insomnia 07/18/18 20:54 07/25/18 20:53 Renny Roper MD Jul 19, 2018 14:13
--- NOTE | 2018-07-19 15:43 | General Progress Note ---
Assessment/Plan Problem List: (1) Pneumonia ICD Codes: J18.9 - Pneumonia, unspecified organism SNOMED: 579650277 (2) Mediastinal lymphadenopathy ICD Codes: R59.0 - Localized enlarged lymph nodes SNOMED: 11185238 (3) Axillary adenopathy ICD Codes: R59.0 - Localized enlarged lymph nodes SNOMED: 748012843 (4) Bilateral pleural effusion ICD Codes: J90 - Pleural effusion, not elsewhere classified SNOMED: 891413359 (5) Syncope ICD Codes: R55 - Syncope and collapse SNOMED: 916794589 Status Narrative better Assessment/Plan IV Abxs bronchodilators Discussed with ID , pt and sister Subjective Allergies: Coded Allergies: CEPHALEXIN (Verified Allergy, Unknown, 07/16/18) SULFAMETHOXAZOLE (Verified Allergy, Unknown, 07/16/18) TRIMETHOPRIM (Verified Allergy, Unknown, 07/16/18) Subjective feels better Objective Last 24 Hour Vital Signs Date Time Temp Pulse Resp B/P (MAP) Pulse Ox O2 Delivery O2 Flow Rate FiO2 07/19/18 12:00 Non-Rebreather 10.0 07/19/18 12:00 99.1 85 28 122/79 (93) 94 07/19/18 12:00 89 07/19/18 07:44 127 07/19/18 07:33 97.7 92 22 131/83 (99) 93 07/19/18 04:00 97.0 87 28 121/78 (92) 95 07/19/18 04:00 82 07/19/18 04:00 Non-Rebreather 10.0 07/19/18 00:00 99.6 108 32 126/69 (88) 94 07/19/18 00:00 121 07/19/18 00:00 Non-Rebreather 10.0 07/18/18 21:47 114 20 92 Non-Rebreather 15.0 100 07/18/18 21:38 109 24 90 Non-Rebreather 15.0 100 07/18/18 21:00 Non-Rebreather 10.0 07/18/18 20:00 86 07/18/18 20:00 98.2 105 32 147/87 (107) 92 07/18/18 16:00 97.4 92 20 131/85 (100) 94 Intake and Output 07/18/18 07/19/18 18:59 06:59 Intake Total 102.5 ml 820.91 ml Output Total 200 ml Balance -97.5 ml 820.91 ml Intake Oral 240 ml IV Total 102.5 ml 580.91 ml Output Urine Total 200 ml # Voids 4 # Bowel Movements 1 2 Laboratory Tests 07/19/18 04:00: White Blood Count 11.3H, Red Blood Count 3.71L, Hemoglobin 10.6L, Hematocrit 31.5L, Mean Corpuscular Volume 85, Mean Corpuscular Hemoglobin 28.5, Mean Corpuscular Hemoglobin Concent 33.5, Red Cell Distribution Width 11.0L, Platelet Count 142L, Mean Platelet Volume 8.5, Neutrophils (%) (Auto) , Lymphocytes (%) (Auto) , Monocytes (%) (Auto) , Eosinophils (%) (Auto) , Basophils (%) (Auto) , Differential Total Cells Counted 100, Neutrophils % ( Manual) 91H, Lymphocytes % (Manual) 4L, Monocytes % (Manual) 5, Eosinophils % ( Manual) 0, Basophils % (Manual) 0, Band Neutrophils 0, Platelet Estimate DecreasedL, Platelet Morphology Normal, Hypochromasia 1+, Anisocytosis 1+, Sodium Level 137, Potassium Level 3.7, Chloride Level 104, Carbon Dioxide Level 24, Anion Gap 10, Blood Urea Nitrogen 11, Creatinine 0.9, Estimat Glomerular Filtration Rate > 60, Glucose Level 114H, Calcium Level 7.9L, Total Bilirubin 0.4, Aspartate Amino Transf (AST/SGOT) 20, Alanine Aminotransferase (ALT/SGPT) 10L, Alkaline Phosphatase 52, Total Protein 6.7, Albumin 2.1L, Globulin 4.6, Albumin/Globulin Ratio 0.5L Height (Feet): 5 Height (Inches): 4.00 Weight (Pounds): 125 Cardiovascular: normal rate Respiratory/Chest: lungs clear, other - less ronchi Edema: no edema noted Generalized Jc Holm MD Jul 19, 2018 15:43
[2018-07-19] MEDS ORDERED: Lidocaine 1% Plain 30 ml INJ PRN (15:45)
[2018-07-19] MEDS ORDERED: Heparin 2000 units/Ns 1000ml INJ PRN (15:45)
--- NOTE | 2018-07-19 15:50 | Infectious Diseases Prog Note ---
Assessment/Plan Assessment/Plan A) 1) sob, hypoxia, + CT scan with infiltrates/nodules - ? pneumonia - ? cap, ? viral, ? mrsa, ? other, cocci, doubt TB 2) rule out other process - ? vasculitis, ? malignancy, ct without PE 3) sepsis, nirav, leukocytosis, fevers, tachypnea, tachycardia 4) pmh - depression 5) allergies - cephalexin, sulfa, tolerates zosyn/pcn 6) fh-nc, sh-negative, mar noted, notes and records noted 7) d/w RN P) 1) zosyn, clindamycin, azithromycin, tamiflu, diflucan - patient cannot tolerate vancomycin - had reaction - cannot use zyvox secondary to drug interaction with zoloft - allergies - cephalexin - hives, which restricts ceftaroline use 2) check labs, serology and chest x-ray, cannot obtain sputum sample 3) d/w Dr. Holm, d/w Dr. Roper 4) continue treatment per primary and consultants 5) d/w mother and patient 6) consider transfer to higher level of care for possible bronchoscopy and lung biopsy 7) needs picc line, no iv access 8) d/w patient and sister at length Subjective Constitutional: Reports: other - patient feels better than last night ; Denies : fever, fatigue HEENT: Reports: congestion Respiratory: Reports: shortness of breath Cardiovascular: Denies: chest pain Gastrointestinal/Abdominal: Reports: diarrhea; Denies: nausea, vomiting Genitourinary: Reports: other - no pulido; Denies: dysuria, hematuria Neurologic: Reports: headache - less Psychiatric: Denies: depression Skin: Denies: rash Hematologic: Denies: other Musculoskeletal: Reports: pain - + pain with breathing Allergies: Coded Allergies: CEPHALEXIN (Verified Allergy, Unknown, 07/16/18) SULFAMETHOXAZOLE (Verified Allergy, Unknown, 07/16/18) TRIMETHOPRIM (Verified Allergy, Unknown, 07/16/18) Objective Vital Signs Last 24 Hour Vital Signs Date Time Temp Pulse Resp B/P (MAP) Pulse Ox O2 Delivery O2 Flow Rate FiO2 07/19/18 12:00 Non-Rebreather 10.0 07/19/18 12:00 99.1 85 28 122/79 (93) 94 07/19/18 12:00 89 07/19/18 07:44 127 07/19/18 07:33 97.7 92 22 131/83 (99) 93 07/19/18 04:00 97.0 87 28 121/78 (92) 95 07/19/18 04:00 82 07/19/18 04:00 Non-Rebreather 10.0 07/19/18 00:00 99.6 108 32 126/69 (88) 94 07/19/18 00:00 121 07/19/18 00:00 Non-Rebreather 10.0 07/18/18 21:47 114 20 92 Non-Rebreather 15.0 100 07/18/18 21:38 109 24 90 Non-Rebreather 15.0 100 07/18/18 21:00 Non-Rebreather 10.0 07/18/18 20:00 86 07/18/18 20:00 98.2 105 32 147/87 (107) 92 07/18/18 16:00 97.4 92 20 131/85 (100) 94 Height (Feet): 5 Height (Inches): 4.00 Weight (Pounds): 125 General Appearance: other - alert, some sob noted, on nr HEENT: normocephalic, atraumatic, anicteric Respiratory/Chest: crackles/rales - few, rhonchi - bilaterally - few, other - air exchange fairly good Cardiovascular: normal rate, regular rhythm, no gallop/murmur, no JVD Abdomen: normal bowel sounds, soft, non tender, no organomegaly, non distended Genitourinary: other - no pulido, no cva pain Extremities: no cyanosis Skin: no rash 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 No PE or aortic dissection. 2. Bilateral pulmonary edema/infiltrates. Cannot exclude underlying pulmonary lesion, consider followup to ensure resolution. 3. Small bilateral pleural effusions. Chest x-ray - 07/16 - FINDINGS: Lungs: Bilateral pulmonary infiltrates/edema. Pleural space: Unremarkable. No pneumothorax. Heart: Unremarkable. No cardiomegaly. Mediastinum: Unremarkable. Bones/joints: Unremarkable. IMPRESSION: Bilateral pulmonary infiltrates/edema. Chest x-ray - Findings: Much less optimal inspiration currently. Diffuse bilateral interstitial and airspace disease is probably unchanged allowing for differences in degree of inspiration. There is probably some pleural fluid now present bilaterally. Impression: Bilateral interstitial and airspace disease, infiltrates versus edema, probably not significantly changed over 3 days Low lung volumes currently. Suspect increasing bilateral pleural effusions Microbiology Date/Time Source Procedure Growth Status 07/16/18 16:05 Blood Blood Culture - Preliminary NO GROWTH AFTER 48 HOURS Resulted 07/16/18 15:55 Blood Blood Culture - Preliminary NO GROWTH AFTER 48 HOURS Resulted 07/16/18 16:55 Nasal Nares Influenza Types A,B Antigen (SONAL) - Final Complete Laboratory Tests Test 07/19/18 04:00 White Blood Count 11.3 K/UL (4.8-10.8) H Red Blood Count 3.71 M/UL (4.20-5.40) L Hemoglobin 10.6 G/DL (12.0-16.0) L Hematocrit 31.5 % (37.0-47.0) L Mean Corpuscular Volume 85 FL (80-99) Mean Corpuscular Hemoglobin 28.5 PG (27.0-31.0) Mean Corpuscular Hemoglobin Concent 33.5 G/DL (32.0-36.0) Red Cell Distribution Width 11.0 % (11.6-14.8) L Platelet Count 142 K/UL (150-450) L Mean Platelet Volume 8.5 FL (6.5-10.1) Neutrophils (%) (Auto) % (45.0-75.0) Lymphocytes (%) (Auto) % (20.0-45.0) Monocytes (%) (Auto) % (1.0-10.0) Eosinophils (%) (Auto) % (0.0-3.0) Basophils (%) (Auto) % (0.0-2.0) Differential Total Cells Counted 100 Neutrophils % (Manual) 91 % (45-75) H Lymphocytes % (Manual) 4 % (20-45) L Monocytes % (Manual) 5 % (1-10) Eosinophils % (Manual) 0 % (0-3) Basophils % (Manual) 0 % (0-2) Band Neutrophils 0 % (0-8) Platelet Estimate Decreased L Platelet Morphology Normal Hypochromasia 1+ Anisocytosis 1+ Sodium Level 137 MMOL/L (136-145) Potassium Level 3.7 MMOL/L (3.5-5.1) Chloride Level 104 MMOL/L (98-107) Carbon Dioxide Level 24 MMOL/L (21-32) Anion Gap 10 mmol/L (5-15) Blood Urea Nitrogen 11 mg/dL (7-18) Creatinine 0.9 MG/DL (0.55-1.30) Estimat Glomerular Filtration Rate > 60 mL/min (>60) Glucose Level 114 MG/DL (74-106) H Calcium Level 7.9 MG/DL (8.5-10.1) L Total Bilirubin 0.4 MG/DL (0.2-1.0) Aspartate Amino Transf (AST/SGOT) 20 U/L (15-37) Alanine Aminotransferase (ALT/SGPT) 10 U/L (12-78) L Alkaline Phosphatase 52 U/L (46-116) Total Protein 6.7 G/DL (6.4-8.2) Albumin 2.1 G/DL (3.4-5.0) L Globulin 4.6 g/dL Albumin/Globulin Ratio 0.5 (1.0-2.7) L Current Medications Medications (Trade) Dose Ordered Sig/Dayanara Route PRN Reason Start Time Stop Time Status Last Admin Dose Admin Acetaminophen (Tylenol) 650 mg Q4H PRN ORAL Mild Pain (Pain Scale 1-3) 07/18/18 20:53 08/17/18 20:52 Acetaminophen (Tylenol) 650 mg Q4H PRN ORAL fever 07/18/18 20:53 08/17/18 20:52 Acetaminophen/ Aspirin/Caffeine (Excedrin Migraine) 1 ea Q6H PRN ORAL migraine 07/18/18 20:53 08/17/18 20:52 07/19/18 11:09 Albuterol/ Ipratropium (Albuterol/ Ipratropium) 3 ml Q4H PRN HHN Shortness of Breath 07/18/18 20:53 07/23/18 20:52 07/18/18 21:38 Azithromycin 500 mg/Dextrose 275 ml @ 275 mls/hr Q24H IV 07/18/18 21:00 07/24/18 20:59 07/18/18 21:24 Clindamycin HCl/ Dextrose 50 ml @ 100 mls/hr EVERY 8 HOURS IV 07/18/18 22:00 07/25/18 13:59 07/19/18 14:36 Dextrose/Sodium Chloride 1,000 ml @ 75 mls/hr [id number] IV 07/18/18 20:52 08/15/18 20:51 07/19/18 10:11 Famotidine (Pepcid) 20 mg DAILY ORAL 07/19/18 09:00 08/15/18 20:14 07/19/18 08:34 Fluconazole/ Sodium Chloride 200 ml @ 200 mls/hr Q24H IV 07/19/18 14:00 07/25/18 13:59 07/19/18 13:44 Lorazepam (Ativan) 1 mg Q4H PRN ORAL For Anxiety 07/18/18 20:53 07/25/18 20:52 07/18/18 21:40 Magnesium Hydroxide (Mom) 30 ml BIDPRN PRN ORAL Constipation 07/19/18 09:00 08/18/18 08:59 Meloxicam (Mobic) 15 mg DAILY ORAL 07/19/18 09:00 08/16/18 08:59 07/19/18 08:34 Morphine Sulfate (Morphine Sulfate) 2 mg Q3H PRN IVP For Pain 07/18/18 20:54 07/23/18 20:53 07/19/18 00:19 Ondansetron HCl (Zofran) 4 mg Q4H PRN IVP Nausea & Vomiting 07/18/18 20:52 08/16/18 20:51 07/19/18 10:11 Oseltamivir Phosphate (Tamiflu) 75 mg BID ORAL 07/19/18 09:00 07/23/18 17:59 07/19/18 08:33 Piperacillin Sod/ Tazobactam Sod 4.5 gm/Sodium Chloride 110 ml @ 27.5 mls/hr EVERY 8 HOURS IVPB 07/18/18 22:00 07/23/18 13:59 07/19/18 13:43 Sertraline HCl (Zoloft) 100 mg DAILY ORAL 07/19/18 09:00 08/15/18 20:14 07/19/18 08:34 Zolpidem Tartrate (Ambien) 5 mg HSPRN PRN ORAL Insomnia 07/18/18 20:54 07/25/18 20:53 Naz Sainz MD Jul 19, 2018 15:49
[2018-07-19 16:00] VITALS: BP 136/68
[2018-07-19] MEDS ORDERED: Morphine Sulfate 2mg/ml Inj IVP PRN (17:15)
[2018-07-19] MEDS: Lactobacillus-GG tablet ORAL SCH (17:19)
[2018-07-19 20:00] VITALS: BP 126/74
[2018-07-19] MEDS ORDERED: Dyna-Hex 2% Top Sol 2oz TOPIC SCH (20:00)
[2018-07-19] MEDS: Azithromycin 500 MG in D5W 275 ML IV SCH (20:25)
[2018-07-19] MEDS: Heparin 5000 units/ml inj SUBQ SCH (20:38)
[2018-07-19] MEDS ORDERED: Clindamycin 150mg cap ORAL SCH (21:00)
[2018-07-19] MEDS: Azithromycin 250mg tab ORAL SCH (21:14)
[2018-07-19] MEDS: Ipratropium 0.02% Inh Soln 2.5ml UD HHN SCH ×2 (21:26→21:27)
[2018-07-20] VITALS: BP 124/85
[2018-07-20] MEDS: Ipratropium 0.02% Inh Soln 2.5ml UD HHN SCH ×4 (01:17→18:48)
[2018-07-20 04:00] VITALS: BP 140/97
[2018-07-20] MEDS: Piperacillin/Tazobactam 4.5 GM in NS 110 ML IVPB SCH (05:16)
[2018-07-20 05:20] LABS: HEMATOCRIT 29.8 % (37.0-47.0); HEMOGLOBIN 9.9 G/DL (12.0-16.0); MEAN CORPUSCULAR VOLUME 85 FL (80-99); PLATELET COUNT 178 K/UL (150-450); RED CELL DISTRIBUTION WIDTH 11.4 % (11.6-14.8); WHITE BLOOD COUNT 9.4 K/UL (4.8-10.8)
[2018-07-20 05:52] LABS: ALANINE AMINOTRANSFERASE 11 U/L (12-78); ALBUMIN 2.1 G/DL (3.4-5.0); ALBUMIN/GLOBULIN RATIO 0.4 (1.0-2.7); ALKALINE PHOSPHATASE 63 U/L (46-116); ANION GAP 9 mmol/L (5-15); ASPARTATE AMINO TRANSFERASE 30 U/L (15-37); BILIRUBIN,TOTAL 0.5 MG/DL (0.2-1.0); BLOOD UREA NITROGEN 13 mg/dL (7-18); CALCIUM 8.7 MG/DL (8.5-10.1); CARBON DIOXIDE 25 MMOL/L (21-32); CHLORIDE 105 MMOL/L (98-107); CREATININE 0.9 MG/DL (0.55-1.30); POTASSIUM 3.5 MMOL/L (3.5-5.1); SODIUM 139 MMOL/L (136-145)
[2018-07-20 05:58] LABS: LACTATE DEHYDROGENASE 256 U/L (81-234)
[2018-07-20 08:00] VITALS: BP 132/67
[2018-07-20] MEDS ORDERED: Clindamycin 150mg cap ORAL SCH (08:00)
[2018-07-20] MEDS: Meloxicam 15 MG TAB ORAL SCH (08:11)
[2018-07-20] MEDS: Oseltamivir 75mg cap ORAL SCH (08:11)
[2018-07-20] MEDS: Lactobacillus-GG tablet ORAL SCH ×2 (08:11→17:37)
[2018-07-20] MEDS: Sertraline 100mg tab ORAL SCH (08:11)
[2018-07-20] MEDS: Heparin 5000 units/ml inj SUBQ SCH ×2 (08:12→20:30)
--- NOTE | 2018-07-20 11:44 | General Progress Note ---
Assessment/Plan Problem List: (1) Pneumonia Assessment & Plan: MYCOPLASMA ICD Codes: J18.9 - Pneumonia, unspecified organism SNOMED: 165711458 (2) Mediastinal lymphadenopathy ICD Codes: R59.0 - Localized enlarged lymph nodes SNOMED: 07153999 (3) Axillary adenopathy ICD Codes: R59.0 - Localized enlarged lymph nodes SNOMED: 033972171 (4) Bilateral pleural effusion ICD Codes: J90 - Pleural effusion, not elsewhere classified SNOMED: 491104513 (5) Syncope ICD Codes: R55 - Syncope and collapse SNOMED: 503023250 Assessment/Plan Abxs per ID bronchodilators Discussed with ID Subjective Allergies: Coded Allergies: CEPHALEXIN (Verified Allergy, Unknown, 07/16/18) SULFAMETHOXAZOLE (Verified Allergy, Unknown, 07/16/18) TRIMETHOPRIM (Verified Allergy, Unknown, 07/16/18) Subjective feels better Objective Last 24 Hour Vital Signs Date Time Temp Pulse Resp B/P (MAP) Pulse Ox O2 Delivery O2 Flow Rate FiO2 07/20/18 10:30 75 24 99 Facial 35 07/20/18 09:05 85 25 98 Facial 35 07/20/18 08:00 99 07/20/18 08:00 Non-Rebreather 10.0 07/20/18 08:00 97.7 93 19 132/67 (88) 93 07/20/18 08:00 100 07/20/18 07:50 70 25 97 Venturi Mask 10.0 45 07/20/18 07:40 90 25 95 Venturi Mask 10.0 45 07/20/18 07:40 95 Venturi Mask 10.0 45 07/20/18 07:40 Venturi Mask 10.0 45 07/20/18 05:40 98.8 07/20/18 04:45 82 30 97 Facial 35 07/20/18 04:00 Non-Rebreather 10.0 07/20/18 04:00 97.8 101 24 140/97 (111) 95 07/20/18 04:00 100 07/20/18 04:00 97 07/20/18 03:05 94 33 94 Facial 45 07/20/18 01:29 77 26 98 Bi-pap 50 07/20/18 01:20 81 26 98 Bi-pap 50 07/20/18 01:17 81 26 98 Facial 50 07/20/18 00:00 Non-Rebreather 10.0 07/20/18 00:00 100 07/20/18 00:00 74 07/20/18 00:00 98.8 78 27 124/85 (98) 99 07/19/18 23:20 83 28 99 Facial 90 07/19/18 21:36 90 30 99 Bi-pap 30 07/19/18 21:34 89 30 100 Facial 30 07/19/18 21:27 87 28 91 Nasal Cannula 3.0 32 07/19/18 20:00 2.0 07/19/18 20:00 98.0 82 18 126/74 (91) 95 07/19/18 20:00 Non-Rebreather 10.0 07/19/18 19:43 99 07/19/18 19:00 82 24 97 07/19/18 17:05 99 35 100 Facial 15.0 100 07/19/18 16:00 96 07/19/18 16:00 Non-Rebreather 10.0 07/19/18 16:00 98.2 93 20 136/68 (90) 92 07/19/18 12:00 Non-Rebreather 10.0 07/19/18 12:00 99.1 85 28 122/79 (93) 94 07/19/18 12:00 89 Intake and Output 07/19/18 07/20/18 19:00 07:00 Intake Total 2091.250 ml Balance 2091.250 ml Intake Oral 960 ml IV Total 1131.250 ml # Voids 4 3 # Bowel Movements 7 7 Laboratory Tests 07/19/18 17:50: Arterial Blood pH 7.533H, Arterial Blood Partial Pressure CO2 25.7L, Arterial Blood Partial Pressure O2 376.6H, Arterial Blood HCO3 21.1L, Arterial Blood Oxygen Saturation 99.3, Arterial Blood Base Excess -0.5, Donato Test Positive 07/20/18 03:30: White Blood Count 9.4, Red Blood Count 3.50L, Hemoglobin 9.9L, Hematocrit 29.8L , Mean Corpuscular Volume 85, Mean Corpuscular Hemoglobin 28.3, Mean Corpuscular Hemoglobin Concent 33.3, Red Cell Distribution Width 11.4L, Platelet Count 178, Mean Platelet Volume 8.3, Neutrophils (%) (Auto) , Lymphocytes (%) (Auto) , Monocytes (%) (Auto) , Eosinophils (%) (Auto) , Basophils (%) (Auto) , Erythrocyte Sedimentation Rate 114H, Sodium Level 139, Potassium Level 3.5, Chloride Level 105, Carbon Dioxide Level 25, Anion Gap 9, Blood Urea Nitrogen 13, Creatinine 0.9, Estimat Glomerular Filtration Rate > 60 , Glucose Level 89, Calcium Level 8.7, Total Bilirubin 0.5, Aspartate Amino Transf (AST/SGOT) 30, Alanine Aminotransferase (ALT/SGPT) 11L, Alkaline Phosphatase 63, Lactate Dehydrogenase 256H, C-Reactive Protein, Quantitative > 70.0H, Total Protein 7.2, Albumin 2.1L, Globulin 5.1, Albumin/Globulin Ratio 0.4L, Rheumatoid Factor Screen [Pending], Anti-Nuclear Antibody Screen [Pending] 07/20/18 09:00: Prothrombin Time 10.8, Prothromb Time International Ratio 1.0 Height (Feet): 5 Height (Inches): 4.00 Weight (Pounds): 125 Cardiovascular: normal rate Respiratory/Chest: rhonchi - bilaterally Edema: no edema noted Generalized Jc Holm MD Jul 20, 2018 11:44
[2018-07-20 12:00] VITALS: BP 127/85
[2018-07-20] MEDS: D5 1/2NS 1,000 ML IV SCH (12:52)
--- NOTE | 2018-07-20 13:34 | Pre-Procedure Note/Attestation ---
Pre-Procedure Note/Attestation Complete Prior to Procedure Planned Procedure: left Procedure Narrative: thoracentesis Indications for Procedure Pre-Operative Diagnosis: Pleural effusion Attestation I attest that I discussed the nature of the procedure; its benefits; risks and complications; and alternatives (and the risks and benefits of such alternatives ), prior to the procedure, with the patient (or the patient's legal nutrition representative). I attest that, if there was a reasonable possibility of needing a blood transfusion, the patient (or the patient's legal nutrition representative) was given the [facility] standardized written summary, pursuant to the Severo Ashly Blood Safety Act ([place] Health and Safety Code # 1645, as amended). I attest that I re-evaluated the patient just prior to the surgery and that there has been no change in the patient's H&P, except as documented below: Marc Martins MD Jul 20, 2018 13:34
--- NOTE | 2018-07-20 13:35 | Brief Operative Note ---
Immediate Post Operative Note Operative Note Chief Complaint: SOB Pre-op Diagnosis: Pleural effusion Procedure: L thoracentesis Post-op Diagnosis: same as pre-op Surgeon: Jens MARTINS Anesthesia: local Specimen: yes - 60 ml fluid sent to lab Complications: none Condition: stable Fluids: none Implant(s) used?: No Marc Martins MD Jul 20, 2018 13:35
--- NOTE | 2018-07-20 13:41 | Diagnostic Imaging Report ---
Indications: Pleural effusion Technique: Ultrasound used to localize optimal puncture site. Ultrasound demonstrated bilateral pleural effusions, left slightly larger than the right. Sterile prepping and draping left chest. Local anesthesia with 1% lidocaine. Under real-time ultrasound guidance, puncture pleural space using thoracentesis needle. Stylet removed. Catheter placed to vacuum bottle suction. Total 600 milliliters of clear yellow fluid aspirated. Patient tolerated procedure well, without immediate complication. Findings: Followup sonography demonstrates complete resolution of pleural fluid. Impression: Successful ultrasound-guided thoracentesis, yielding 600 milliliters of fluid
--- NOTE | 2018-07-20 13:44 | Infectious Diseases Prog Note ---
Assessment/Plan Assessment/Plan A) 1) mycoplasma pna, + mycoplasma IGM and IGG, sob, hypoxia, + CT scan with infiltrates/nodules - clinically improved, s/p thoracentesis 2) sepsis, nirav, leukocytosis, fevers, tachypnea, tachycardia - clinically improved 3) pmh - depression 4) allergies - cephalexin, sulfa, tolerates zosyn/pcn 5) fh-nc, sh-negative, mar noted, notes and records noted 6) d/w RN P) 1) azithromycin - day # 3 - plan on 14 day total course because of severe clinical presentation 2) monitor labs, serology and chest x-ray, cannot obtain sputum sample 3) d/w Dr. Holm, d/w Dr. Roper 4) continue treatment per primary and consultants 5) avoid picc line if possible, azithromycin with excellent bioavailability Subjective Constitutional: Denies: fever HEENT: Reports: congestion - less Respiratory: Reports: shortness of breath - les Cardiovascular: Denies: chest pain Gastrointestinal/Abdominal: Denies: nausea, vomiting, diarrhea Neurologic: Denies: headache, numbness Psychiatric: Denies: depression Skin: Denies: rash Hematologic: Denies: bleeding Musculoskeletal: Denies: pain Allergies: Coded Allergies: CEPHALEXIN (Verified Allergy, Unknown, 07/16/18) SULFAMETHOXAZOLE (Verified Allergy, Unknown, 07/16/18) TRIMETHOPRIM (Verified Allergy, Unknown, 07/16/18) Objective Vital Signs Last 24 Hour Vital Signs Date Time Temp Pulse Resp B/P (MAP) Pulse Ox O2 Delivery O2 Flow Rate FiO2 07/20/18 12:00 90 07/20/18 12:00 98.5 95 20 127/85 (99) 90 07/20/18 12:00 Non-Rebreather 10.0 07/20/18 12:00 100 07/20/18 10:30 75 24 99 Facial 35 07/20/18 09:05 85 25 98 Facial 35 07/20/18 08:00 99 07/20/18 08:00 Non-Rebreather 10.0 07/20/18 08:00 97.7 93 19 132/67 (88) 93 07/20/18 08:00 100 07/20/18 07:50 70 25 97 Venturi Mask 10.0 45 07/20/18 07:40 90 25 95 Venturi Mask 10.0 45 07/20/18 07:40 95 Venturi Mask 10.0 45 07/20/18 07:40 Venturi Mask 10.0 45 07/20/18 05:40 98.8 07/20/18 04:45 82 30 97 Facial 35 07/20/18 04:00 Non-Rebreather 10.0 07/20/18 04:00 97.8 101 24 140/97 (111) 95 07/20/18 04:00 100 07/20/18 04:00 97 07/20/18 03:05 94 33 94 Facial 45 07/20/18 01:29 77 26 98 Bi-pap 50 07/20/18 01:20 81 26 98 Bi-pap 50 07/20/18 01:17 81 26 98 Facial 50 07/20/18 00:00 Non-Rebreather 10.0 07/20/18 00:00 100 07/20/18 00:00 74 07/20/18 00:00 98.8 78 27 124/85 (98) 99 07/19/18 23:20 83 28 99 Facial 90 07/19/18 21:36 90 30 99 Bi-pap 30 07/19/18 21:34 89 30 100 Facial 30 07/19/18 21:27 87 28 91 Nasal Cannula 3.0 32 07/19/18 20:00 2.0 07/19/18 20:00 98.0 82 18 126/74 (91) 95 07/19/18 20:00 Non-Rebreather 10.0 07/19/18 19:43 99 07/19/18 19:00 82 24 97 07/19/18 17:05 99 35 100 Facial 15.0 100 07/19/18 16:00 96 07/19/18 16:00 Non-Rebreather 10.0 07/19/18 16:00 98.2 93 20 136/68 (90) 92 Height (Feet): 5 Height (Inches): 4.00 Weight (Pounds): 125 HEENT: normocephalic, atraumatic, anicteric Respiratory/Chest: lungs clear, normal breath sounds, rhonchi - bilaterally - occasional Cardiovascular: normal rate, regular rhythm, no gallop/murmur, no JVD Abdomen: normal bowel sounds, soft, non tender, no organomegaly Objective CT chest - IMPRESSION: 1. No PE or aortic dissection. 2. Bilateral pulmonary edema/infiltrates. Cannot exclude underlying pulmonary lesion, consider followup to ensure resolution. 3. Small bilateral pleural effusions. Chest x-ray - 07/16 - FINDINGS: Lungs: Bilateral pulmonary infiltrates/edema. Pleural space: Unremarkable. No pneumothorax. Heart: Unremarkable. No cardiomegaly. Mediastinum: Unremarkable. Bones/joints: Unremarkable. IMPRESSION: Bilateral pulmonary infiltrates/edema. Chest x-ray - Findings: Much less optimal inspiration currently. Diffuse bilateral interstitial and airspace disease is probably unchanged allowing for differences in degree of inspiration. There is probably some pleural fluid now present bilaterally. Impression: Bilateral interstitial and airspace disease, infiltrates versus edema, probably not significantly changed over 3 days Low lung volumes currently. Suspect increasing bilateral pleural effusions Laboratory Tests Test 07/19/18 17:50 07/20/18 03:30 07/20/18 09:00 Arterial Blood pH 7.533 (7.350-7.450) Arterial Blood Partial Pressure CO2 25.7 mmHg (35.0-45.0) L Arterial Blood Partial Pressure O2 376.6 mmHg (75.0-100.0) H Arterial Blood HCO3 21.1 mmol/L (22.0-26.0) L Arterial Blood Oxygen Saturation 99.3 % (95-100) Arterial Blood Base Excess -0.5 (-2-2) Donato Test Positive White Blood Count 9.4 K/UL (4.8-10.8) Red Blood Count 3.50 M/UL (4.20-5.40) L Hemoglobin 9.9 G/DL (12.0-16.0) L Hematocrit 29.8 % (37.0-47.0) L Mean Corpuscular Volume 85 FL (80-99) Mean Corpuscular Hemoglobin 28.3 PG (27.0-31.0) Mean Corpuscular Hemoglobin Concent 33.3 G/DL (32.0-36.0) Red Cell Distribution Width 11.4 % (11.6-14.8) L Platelet Count 178 K/UL (150-450) Mean Platelet Volume 8.3 FL (6.5-10.1) Neutrophils (%) (Auto) % (45.0-75.0) Lymphocytes (%) (Auto) % (20.0-45.0) Monocytes (%) (Auto) % (1.0-10.0) Eosinophils (%) (Auto) % (0.0-3.0) Basophils (%) (Auto) % (0.0-2.0) Erythrocyte Sedimentation Rate 114 MM/HR (0-30) H Sodium Level 139 MMOL/L (136-145) Potassium Level 3.5 MMOL/L (3.5-5.1) Chloride Level 105 MMOL/L (98-107) Carbon Dioxide Level 25 MMOL/L (21-32) Anion Gap 9 mmol/L (5-15) Blood Urea Nitrogen 13 mg/dL (7-18) Creatinine 0.9 MG/DL (0.55-1.30) Estimat Glomerular Filtration Rate > 60 mL/min (>60) Glucose Level 89 MG/DL (74-106) Calcium Level 8.7 MG/DL (8.5-10.1) Total Bilirubin 0.5 MG/DL (0.2-1.0) Aspartate Amino Transf (AST/SGOT) 30 U/L (15-37) Alanine Aminotransferase (ALT/SGPT) 11 U/L (12-78) L Alkaline Phosphatase 63 U/L (46-116) Lactate Dehydrogenase 256 U/L (81-234) H C-Reactive Protein, Quantitative > 70.0 mg/dL (0.00-0.90) H Total Protein 7.2 G/DL (6.4-8.2) Albumin 2.1 G/DL (3.4-5.0) L Globulin 5.1 g/dL Albumin/Globulin Ratio 0.4 (1.0-2.7) L Rheumatoid Factor Screen Pending Anti-Nuclear Antibody Screen Pending Prothrombin Time 10.8 SEC (9.30-11.50) Prothromb Time International Ratio 1.0 (0.9-1.1) Current Medications Medications (Trade) Dose Ordered Sig/Dayanara Route PRN Reason Start Time Stop Time Status Last Admin Dose Admin Acetaminophen (Tylenol) 650 mg Q4H PRN ORAL fever 07/18/18 20:53 08/17/18 20:52 Acetaminophen/ Aspirin/Caffeine (Excedrin Migraine) 1 ea Q6H PRN ORAL migraine 07/18/18 20:53 08/17/18 20:52 07/19/18 11:09 Albuterol/ Ipratropium (Albuterol/ Ipratropium) 3 ml Q4H PRN HHN Shortness of Breath 07/18/18 20:53 07/23/18 20:52 07/18/18 21:38 Azithromycin (Zithromax) 500 mg Q24H ORAL 07/19/18 21:00 07/26/18 20:59 07/19/18 21:14 Chlorhexidine Gluconate (Antonia-Hex 2%) 1 applic DAILY@2000 TOPIC 07/20/18 20:00 08/18/18 19:59 Clindamycin HCl (Cleocin) 450 mg Q6H ORAL 07/20/18 08:00 07/27/18 07:59 07/20/18 08:11 Dextrose/Sodium Chloride 1,000 ml @ 75 mls/hr [id number] IV 07/18/18 20:52 08/15/18 20:51 07/19/18 10:11 Famotidine (Pepcid) 20 mg DAILY ORAL 07/19/18 09:00 08/15/18 20:14 07/20/18 08:11 Fluconazole/ Sodium Chloride 200 ml @ 200 mls/hr Q24H IV 07/19/18 14:00 07/25/18 13:59 07/19/18 13:44 Heparin Sodium (Porcine) (Heparin 5000 units/ml) 5,000 units EVERY 12 HOURS SUBQ 07/19/18 21:00 08/18/18 20:59 Heparin Sodium/ Sodium Chloride (Heparin 2000 units/Ns 1000ml premix) 2,000 unit ONCE PRN INJ PICC LINE 07/19/18 15:45 07/20/18 18:00 Ibuprofen (Advil) 400 mg Q8H PRN ORAL PAIN 1-6 07/19/18 17:15 08/18/18 17:14 07/20/18 05:10 Ipratropium [place] (Atrovent) 500 mcg Q6HRT HHN 07/19/18 17:00 07/24/18 16:59 07/20/18 07:44 Lactobacillus Acidophilus (Culturelle) 1 tab TWICE A DAY ORAL 07/19/18 18:00 08/18/18 17:59 07/20/18 08:11 Lidocaine HCl (Xylocaine 1% 30ml) 30 ml ONCE PRN INJ PICC LINE 07/19/18 15:45 07/20/18 18:00 Lorazepam (Ativan) 1 mg Q4H PRN ORAL For Anxiety 07/18/18 20:53 07/25/18 20:52 07/18/18 21:40 Magnesium Hydroxide (Mom) 30 ml BIDPRN PRN ORAL Constipation 07/19/18 09:00 08/18/18 08:59 Meloxicam (Mobic) 15 mg DAILY ORAL 07/19/18 09:00 08/16/18 08:59 07/20/18 08:11 Morphine Sulfate (Morphine Sulfate) 2 mg Q3H PRN IVP Severe Pain (Pain Scale 7-10) 07/19/18 17:15 07/23/18 20:53 Ondansetron HCl (Zofran ODT) 4 mg Q6H PRN ORAL Nausea & Vomiting 07/19/18 16:30 08/18/18 16:29 07/19/18 16:54 Oseltamivir Phosphate (Tamiflu) 75 mg BID ORAL 07/19/18 09:00 07/23/18 17:59 07/20/18 08:11 Piperacillin Sod/ Tazobactam Sod 4.5 gm/Sodium Chloride 110 ml @ 27.5 mls/hr EVERY 8 HOURS IVPB 07/18/18 22:00 07/23/18 13:59 07/19/18 13:43 Sertraline HCl (Zoloft) 100 mg DAILY ORAL 07/19/18 09:00 08/15/18 20:14 07/20/18 08:11 Zolpidem Tartrate (Ambien) 5 mg HSPRN PRN ORAL Insomnia 07/18/18 20:54 07/25/18 20:53 Naz Sainz MD Jul 20, 2018 13:44
--- NOTE | 2018-07-20 15:45 | Pulmonology Progress Note ---
Assessment/Plan Assessment/Plan HPI Patient is a 57-year-old female visiting [place], who presented after increased right-sided headache and vomiting. The patient reports having a syncopal episode after standing, having fallen and hit her head. She reports having a persistent headache as well as multiple episodes of vomiting. She reports having generalized body aches and chills. She states that she had not been having any diarrhea. She reports having a nonproductive cough. Previous neck surgery to her neck where she had a nerve ball removed. Patient had prior history of lung nodule and had previously had a CT imaging which showed no change in the nodule.The patient had been taking hormone replacement therapy had recently flown from [place]. Patient denies recent foreign travel.The patient had syncopal episode after standing while in the bathroom. She reported feeling lightheaded prior to syncope. Denies sick contacts, no h/o immunosupression/connective tissue disease Less SOB Positive Mycoplasma Serology - antibiotics per ID S/p Thoracentesis CXR: Impression: Bilateral interstitial and airspace disease, infiltrates versus edema, probably not significantly changed over 3 days Low lung volumes currently. Suspect increasing bilateral pleural effusions Previous CT Angio negative for PE On Antibiotics per ID Allergies: Coded Allergies: CEPHALEXIN (Verified Allergy, Unknown, 07/16/18) SULFAMETHOXAZOLE (Verified Allergy, Unknown, 07/16/18) TRIMETHOPRIM (Verified Allergy, Unknown, 07/16/18) Patient History Past Medical History: unable to obtain Reviewed Nursing Documentation: PMH: Agreed; PSxH: Agreed Nursing Documentation-PMH Past Medical History: No Stated History Review of Systems All Other Systems: negative except mentioned in HPI Physical Exam Vital Signs Noted Sp02 EP Interpretation: reviewed, normal General Appearance: normal inspection, alert, no apparent distress, GCS 15 Head: other - right parietal scalp laceration 1cm linear, dried blood Eyes: normal eye exam, PERRL, EOMI, lids + conjunctiva normal, no hyphema, no racoon eyes ENT: normal ENT inspection, TMs + canals normal, oropharynx normal, no ruvalcaba signs Neck: trach midline, no bony tend, full range of motion without pain Respiratory: effort normal, no retractions, speaking in full sentences Cardiovascular: regular rate, rhythm, no JVD Cardiovascular #2: 2+ radial (R), 2+ radial (L), 2+ dorsalis pedis (R), 2+ dorsalis pedis (L) Gastrointestinal: normal inspection, non-tender, non-distended, no rebound/ guarding, normal bowel sounds Genitourinary: normal inspection Musculoskeletal: normal inspection, normal ROM, non-tender, back normal Skin: no rash, normal palpation, other - superficial laceration to right parietal scalp Neurologic: normal inspection, CN II-XII intact, oriented x3, sensory intact, motor strength/tone normal, normal speech Psychiatric: normal inspection, judgment & insight normal, memory normal, mood normal, no suicidal/homicidal ideation Medical Decision Making Impression: Primary Impression: Syncope Head injury Bilateral pleural effusion Pneumonia Pulmonary Nodule Axillary adenopathy Mediastinal lymphadenopathy Plan IV fluids. IV Antibiotics per ID HHN [employer] medications Out patient follow up of Pulmonary Nodule PPX O2 PRN - start BiPAP PRN, repeat ABG CXR: Bilateral infiltrates CT Chest: No PE, Pulmonary nodule, Mediastinal LN Labs Test 07/16/18 15:48 07/16/18 17:15 White Blood Count 12.2 K/UL (4.8-10.8) Red Blood Count 4.96 M/UL (4.20-5.40) Hemoglobin 15.1 G/DL (12.0-16.0) Hematocrit 42.9 % (37.0-47.0) Mean Corpuscular Volume 87 FL (80-99) Mean Corpuscular Hemoglobin 30.4 PG (27.0-31.0) Mean Corpuscular Hemoglobin Concent 35.1 G/DL (32.0-36.0) Red Cell Distribution Width 11.5 % (11.6-14.8) Platelet Count 181 K/UL (150-450) Mean Platelet Volume 9.4 FL (6.5-10.1) Neutrophils (%) (Auto) % (45.0-75.0) Lymphocytes (%) (Auto) % (20.0-45.0) Monocytes (%) (Auto) % (1.0-10.0) Eosinophils (%) (Auto) % (0.0-3.0) Basophils (%) (Auto) % (0.0-2.0) Prothrombin Time 10.6 SEC (9.30-11.50) Prothromb Time International Ratio 1.0 (0.9-1.1) Activated Partial Thromboplast Time 29 SEC (23-33) D-Dimer 1.44 mg/L FEU (0.00-0.49) Sodium Level 133 MMOL/L (136-145) Potassium Level 5.0 MMOL/L (3.5-5.1) Chloride Level 100 MMOL/L (98-107) Carbon Dioxide Level 24 MMOL/L (21-32) Anion Gap 9 mmol/L (5-15) Blood Urea Nitrogen 31 mg/dL (7-18) Creatinine 1.7 MG/DL (0.55-1.30) Estimat Glomerular Filtration Rate 31.2 mL/min (>60) Glucose Level 120 MG/DL (74-106) Calcium Level 8.8 MG/DL (8.5-10.1) Total Bilirubin 0.5 MG/DL (0.2-1.0) Aspartate Amino Transf (AST/SGOT) 23 U/L (15-37) Alanine Aminotransferase (ALT/SGPT) 23 U/L (12-78) Alkaline Phosphatase 72 U/L (46-116) Total Protein 8.7 G/DL (6.4-8.2) Albumin 3.2 G/DL (3.4-5.0) Globulin 5.5 g/dL Albumin/Globulin Ratio 0.6 (1.0-2.7) EKG Diagnostic Results Rate: normal Rhythm: NSR ST Segments: no acute changes Rhythm Strip Diag. Results EP Interpretation: yes Rhythm: NSR, no PVC's, no ectopy CT Chest: 1. No PE or aortic dissection. 2. Bilateral pulmonary edema/infiltrates. Cannot exclude underlying pulmonary lesion, consider followup to ensure resolution. 3. Small bilateral pleural effusions. Subjective ROS Limited/Unobtainable: No Allergies: Coded Allergies: CEPHALEXIN (Verified Allergy, Unknown, 07/16/18) SULFAMETHOXAZOLE (Verified Allergy, Unknown, 07/16/18) TRIMETHOPRIM (Verified Allergy, Unknown, 07/16/18) Objective Last 24 Hour Vital Signs Date Time Temp Pulse Resp B/P (MAP) Pulse Ox O2 Delivery O2 Flow Rate FiO2 07/20/18 12:00 90 07/20/18 12:00 98.5 95 20 127/85 (99) 90 07/20/18 12:00 Non-Rebreather 10.0 07/20/18 12:00 100 07/20/18 10:30 75 24 99 Facial 35 07/20/18 09:05 85 25 98 Facial 35 07/20/18 08:00 99 07/20/18 08:00 Non-Rebreather 10.0 07/20/18 08:00 97.7 93 19 132/67 (88) 93 07/20/18 08:00 100 07/20/18 07:50 70 25 97 Venturi Mask 10.0 45 07/20/18 07:40 90 25 95 Venturi Mask 10.0 45 07/20/18 07:40 95 Venturi Mask 10.0 45 07/20/18 07:40 Venturi Mask 10.0 45 07/20/18 05:40 98.8 07/20/18 04:45 82 30 97 Facial 35 07/20/18 04:00 Non-Rebreather 10.0 07/20/18 04:00 97.8 101 24 140/97 (111) 95 07/20/18 04:00 100 07/20/18 04:00 97 07/20/18 03:05 94 33 94 Facial 45 07/20/18 01:29 77 26 98 Bi-pap 50 07/20/18 01:20 81 26 98 Bi-pap 50 07/20/18 01:17 81 26 98 Facial 50 07/20/18 00:00 Non-Rebreather 10.0 07/20/18 00:00 100 07/20/18 00:00 74 07/20/18 00:00 98.8 78 27 124/85 (98) 99 07/19/18 23:20 83 28 99 Facial 90 07/19/18 21:36 90 30 99 Bi-pap 30 07/19/18 21:34 89 30 100 Facial 30 07/19/18 21:27 87 28 91 Nasal Cannula 3.0 32 07/19/18 20:00 2.0 07/19/18 20:00 98.0 82 18 126/74 (91) 95 07/19/18 20:00 Non-Rebreather 10.0 07/19/18 19:43 99 07/19/18 19:00 82 24 97 07/19/18 17:05 99 35 100 Facial 15.0 100 07/19/18 16:00 96 07/19/18 16:00 Non-Rebreather 10.0 07/19/18 16:00 98.2 93 20 136/68 (90) 92 Intake and Output 07/19/18 07/20/18 18:59 06:59 Intake Total 2082.170 ml 75 ml Balance 2082.170 ml 75 ml Intake Oral 960 ml IV Total 1122.170 ml 75 ml # Voids 4 3 # Bowel Movements 7 7 Laboratory Tests 07/19/18 17:50: Arterial Blood pH 7.533H, Arterial Blood Partial Pressure CO2 25.7L, Arterial Blood Partial Pressure O2 376.6H, Arterial Blood HCO3 21.1L, Arterial Blood Oxygen Saturation 99.3, Arterial Blood Base Excess -0.5, Donato Test Positive 07/20/18 03:30: White Blood Count 9.4, Red Blood Count 3.50L, Hemoglobin 9.9L, Hematocrit 29.8L , Mean Corpuscular Volume 85, Mean Corpuscular Hemoglobin 28.3, Mean Corpuscular Hemoglobin Concent 33.3, Red Cell Distribution Width 11.4L, Platelet Count 178, Mean Platelet Volume 8.3, Neutrophils (%) (Auto) , Lymphocytes (%) (Auto) , Monocytes (%) (Auto) , Eosinophils (%) (Auto) , Basophils (%) (Auto) , Erythrocyte Sedimentation Rate 114H, Sodium Level 139, Potassium Level 3.5, Chloride Level 105, Carbon Dioxide Level 25, Anion Gap 9, Blood Urea Nitrogen 13, Creatinine 0.9, Estimat Glomerular Filtration Rate > 60 , Glucose Level 89, Calcium Level 8.7, Total Bilirubin 0.5, Aspartate Amino Transf (AST/SGOT) 30, Alanine Aminotransferase (ALT/SGPT) 11L, Alkaline Phosphatase 63, Lactate Dehydrogenase 256H, C-Reactive Protein, Quantitative > 70.0H, Total Protein 7.2, Albumin 2.1L, Globulin 5.1, Albumin/Globulin Ratio 0.4L, Rheumatoid Factor Screen [Pending], Anti-Nuclear Antibody Screen [Pending] 07/20/18 09:00: Prothrombin Time 10.8, Prothromb Time International Ratio 1.0 07/20/18 12:30: Body Fluid Source Thoracentesis, Body Fluid Volume 24, Body Fluid Appearance Clear, Body Fluid RBC 473, Body Fluid Total Nucleated Cells 714, Body Fluid Polynuclear WBCs (%) 69, Body Fluid Mononuclear WBCs (%) 25, Body Fluid Mesothelial Cells (%) 6, Body Fluid Lactate Dehydrogenase [Pending] Current Medications Medications (Trade) Dose Ordered Sig/Dayanara Route PRN Reason Start Time Stop Time Status Last Admin Dose Admin Acetaminophen (Tylenol) 650 mg Q4H PRN ORAL fever 07/18/18 20:53 08/17/18 20:52 Acetaminophen/ Aspirin/Caffeine (Excedrin Migraine) 1 ea Q6H PRN ORAL migraine 07/18/18 20:53 08/17/18 20:52 07/19/18 11:09 Albuterol/ Ipratropium (Albuterol/ Ipratropium) 3 ml Q4H PRN HHN Shortness of Breath 07/18/18 20:53 07/23/18 20:52 07/18/18 21:38 Azithromycin (Zithromax) 500 mg Q24H ORAL 07/19/18 21:00 07/26/18 20:59 07/19/18 21:14 Chlorhexidine Gluconate (Antonia-Hex 2%) 1 applic DAILY@2000 TOPIC 07/20/18 20:00 08/18/18 19:59 Famotidine (Pepcid) 20 mg DAILY ORAL 07/19/18 09:00 08/15/18 20:14 07/20/18 08:11 Heparin Sodium (Porcine) (Heparin 5000 units/ml) 5,000 units EVERY 12 HOURS SUBQ 07/19/18 21:00 08/18/18 20:59 Heparin Sodium/ Sodium Chloride (Heparin 2000 units/Ns 1000ml premix) 2,000 unit ONCE PRN INJ PICC LINE 07/19/18 15:45 07/20/18 18:00 Ibuprofen (Advil) 400 mg Q8H PRN ORAL PAIN 1-6 07/19/18 17:15 08/18/18 17:14 07/20/18 14:05 Ipratropium Winn (Atrovent) 500 mcg Q6HRT HHN 07/19/18 17:00 07/24/18 16:59 07/20/18 07:44 Lactobacillus Acidophilus (Culturelle) 1 tab TWICE A DAY ORAL 07/19/18 18:00 08/18/18 17:59 07/20/18 08:11 Lidocaine HCl (Xylocaine 1% 30ml) 30 ml ONCE PRN INJ PICC LINE 07/19/18 15:45 07/20/18 18:00 Lorazepam (Ativan) 1 mg Q4H PRN ORAL For Anxiety 07/18/18 20:53 07/25/18 20:52 07/18/18 21:40 Magnesium Hydroxide (Mom) 30 ml BIDPRN PRN ORAL Constipation 07/19/18 09:00 08/18/18 08:59 Meloxicam (Mobic) 15 mg DAILY ORAL 07/19/18 09:00 08/16/18 08:59 07/20/18 08:11 Morphine Sulfate (Morphine Sulfate) 2 mg Q3H PRN IVP Severe Pain (Pain Scale 7-10) 07/19/18 17:15 07/23/18 20:53 Ondansetron HCl (Zofran ODT) 4 mg Q6H PRN ORAL Nausea & Vomiting 07/19/18 16:30 08/18/18 16:29 07/19/18 16:54 Sertraline HCl (Zoloft) 100 mg DAILY ORAL 07/19/18 09:00 08/15/18 20:14 07/20/18 08:11 Zolpidem Tartrate (Ambien) 5 mg HSPRN PRN ORAL Insomnia 07/18/18 20:54 07/25/18 20:53 Renny Roper MD Jul 20, 2018 15:45
[2018-07-20 16:00] VITALS: BP 136/67
--- NOTE | 2018-07-20 16:29 | Diagnostic Imaging Report ---
Indication: Status post thoracentesis Technique: One view of the chest Comparison: 07/19/2018 Findings: Resolution of previously demonstrated left-sided pleural effusion. No pneumothorax. Extensive bilateral parenchymal interstitial and airspace consolidation persists, unchanged Impression: Resolved left pleural effusion, status post thoracentesis. No radiographically evident complication Other stable findings as described
[2018-07-20 20:00] VITALS: BP 133/68
[2018-07-20] MEDS ORDERED: Dyna-Hex 2% Top Sol 2oz TOPIC SCH (20:00)
[2018-07-20] MEDS: Azithromycin 250mg tab ORAL SCH (20:30)
[2018-07-20] MEDS: LORazepam 1mg tab ORAL PRN (22:32)
[2018-07-21] VITALS: BP 134/69
[2018-07-21] MEDS: Ipratropium 0.02% Inh Soln 2.5ml UD HHN SCH ×4 (01:59→18:37)
[2018-07-21 04:00] VITALS: BP 131/82
[2018-07-21 08:00] VITALS: BP 138/80
[2018-07-21] MEDS: Heparin 5000 units/ml inj SUBQ SCH ×2 (09:00→21:00)
[2018-07-21] MEDS: Meloxicam 15 MG TAB ORAL SCH (09:24)
[2018-07-21] MEDS: Sertraline 100mg tab ORAL SCH (09:24)
[2018-07-21] MEDS: Lactobacillus-GG tablet ORAL SCH ×2 (09:24→17:36)
[2018-07-21 12:00] VITALS: BP 127/78
--- NOTE | 2018-07-21 12:37 | General Progress Note ---
Assessment/Plan Problem List: (1) Pneumonia Assessment & Plan: MYCOPLASMA ICD Codes: J18.9 - Pneumonia, unspecified organism SNOMED: 585349283 (2) Mediastinal lymphadenopathy ICD Codes: R59.0 - Localized enlarged lymph nodes SNOMED: 08750049 (3) Axillary adenopathy ICD Codes: R59.0 - Localized enlarged lymph nodes SNOMED: 423262519 (4) Bilateral pleural effusion ICD Codes: J90 - Pleural effusion, not elsewhere classified SNOMED: 861615505 (5) Syncope ICD Codes: R55 - Syncope and collapse SNOMED: 996239789 Assessment/Plan Abxs per ID bronchodilators Discussed with transfer worker to med surg Subjective Allergies: Coded Allergies: CEPHALEXIN (Verified Allergy, Unknown, 07/16/18) SULFAMETHOXAZOLE (Verified Allergy, Unknown, 07/16/18) TRIMETHOPRIM (Verified Allergy, Unknown, 07/16/18) Subjective feels better Objective Last 24 Hour Vital Signs Date Time Temp Pulse Resp B/P (MAP) Pulse Ox O2 Delivery O2 Flow Rate FiO2 07/21/18 08:00 Venturi Mask 6.0 07/21/18 08:00 99.5 102 18 138/80 (99) 94 07/21/18 08:00 99.5 102 18 138/80 (99) 94 07/21/18 08:00 6.0 45 07/21/18 07:39 109 07/21/18 07:19 98 20 95 Venturi Mask 10.0 45 07/21/18 07:09 99 22 96 Venturi Mask 10.0 50 07/21/18 06:58 Venturi Mask 10.0 50 07/21/18 06:58 96 Venturi Mask 10.0 50 07/21/18 04:00 10.0 07/21/18 04:00 98.1 83 20 131/82 (98) 94 07/21/18 04:00 95 07/21/18 04:00 Non-Rebreather 10.0 07/21/18 02:10 84 22 96 Venturi Mask 10.0 45 07/21/18 01:59 89 22 94 Venturi Mask 12.0 50 07/21/18 00:00 86 07/21/18 00:00 Non-Rebreather 10.0 07/21/18 00:00 98.2 84 19 134/69 (90) 95 07/20/18 21:23 84 34 95 Facial 40 07/20/18 20:00 Non-Rebreather 10.0 07/20/18 20:00 98.4 86 20 133/68 (89) 96 07/20/18 20:00 96 07/20/18 20:00 10.0 07/20/18 19:00 90 20 95 Venturi Mask 10.0 45 07/20/18 18:50 Venturi Mask 10.0 45 07/20/18 18:50 89 22 92 Venturi Mask 10.0 45 07/20/18 18:49 92 Venturi Mask 10.0 45 07/20/18 16:00 100 07/20/18 16:00 Non-Rebreather 10.0 07/20/18 16:00 98.2 89 19 136/67 (90) 91 07/20/18 13:30 Venturi Mask 07/20/18 13:30 Venturi Mask Intake and Output 07/20/18 07/21/18 19:00 07:00 Output Total 600 ml Balance -600 ml Other 600 ml # Voids 5 1 # Bowel Movements 6 Height (Feet): 5 Height (Inches): 4.00 Weight (Pounds): 125 Cardiovascular: normal rate Respiratory/Chest: rhonchi - bilaterally Edema: no edema noted Generalized Jc Holm MD Jul 21, 2018 12:37
--- NOTE | 2018-07-21 12:48 | Diagnostic Imaging Report ---
Indication: Dyspnea Technique: One view of the chest Comparison: 07/20/2018 Findings: Bilateral mixed interstitial and airspace infiltrates versus edema are essentially unchanged. There is evidence of slight reaccumulation of pleural fluid on the left. Pleural fluid on the right previously demonstrated sonographically is not evident on plain radiograph. Impression: Suggestion of some reaccumulation of pleural fluid on the left, over one day Unchanged bilateral parenchymal disease
--- NOTE | 2018-07-21 14:37 | Infectious Diseases Prog Note ---
Assessment/Plan Assessment/Plan A) 1) mycoplasma pna, + mycoplasma IGM and IGG, sob, hypoxia, + CT scan with infiltrates/nodules - clinically improved, s/p thoracentesis 2) sepsis, nirav, leukocytosis, fevers, tachypnea, tachycardia - clinically improved 3) pmh - depression 4) allergies - cephalexin, sulfa, tolerates zosyn/pcn 5) fh-nc, sh-negative, mar noted, notes and records noted 6) d/w RN P) 1) azithromycin - day # 4 - plan on 14 day total course because of severe clinical presentation 2) monitor labs, serology and chest x-ray, cannot obtain sputum sample 3) d/w Dr. Holm, d/w Dr. Roper 4) continue treatment per primary and consultants 5) avoid picc line if possible, oral azithromycin with excellent bioavailability Subjective Constitutional: Reports: fever - lgt , fatigue HEENT: Reports: congestion - less Respiratory: Reports: shortness of breath - less, other - on NR mask Cardiovascular: Denies: chest pain Gastrointestinal/Abdominal: Denies: nausea, vomiting, diarrhea Genitourinary: Reports: other - no pulido Neurologic: Denies: headache Psychiatric: Denies: depression Skin: Denies: rash Hematologic: Denies: bleeding Musculoskeletal: Denies: pain Allergies: Coded Allergies: CEPHALEXIN (Verified Allergy, Unknown, 07/16/18) SULFAMETHOXAZOLE (Verified Allergy, Unknown, 07/16/18) TRIMETHOPRIM (Verified Allergy, Unknown, 07/16/18) Objective Vital Signs Last 24 Hour Vital Signs Date Time Temp Pulse Resp B/P (MAP) Pulse Ox O2 Delivery O2 Flow Rate FiO2 07/21/18 13:40 102 20 98 Venturi Mask 10.0 50 07/21/18 13:30 105 20 94 Venturi Mask 10.0 50 07/21/18 08:00 Venturi Mask 6.0 07/21/18 08:00 99.5 102 18 138/80 (99) 94 07/21/18 08:00 99.5 102 18 138/80 (99) 94 07/21/18 08:00 6.0 45 07/21/18 07:39 109 07/21/18 07:19 98 20 95 Venturi Mask 10.0 45 07/21/18 07:09 99 22 96 Venturi Mask 10.0 50 07/21/18 06:58 Venturi Mask 10.0 50 07/21/18 06:58 96 Venturi Mask 10.0 50 07/21/18 04:00 10.0 07/21/18 04:00 98.1 83 20 131/82 (98) 94 07/21/18 04:00 95 07/21/18 04:00 Non-Rebreather 10.0 07/21/18 02:10 84 22 96 Venturi Mask 10.0 45 07/21/18 01:59 89 22 94 Venturi Mask 12.0 50 07/21/18 00:00 86 07/21/18 00:00 Non-Rebreather 10.0 07/21/18 00:00 98.2 84 19 134/69 (90) 95 07/20/18 21:23 84 34 95 Facial 40 07/20/18 20:00 Non-Rebreather 10.0 07/20/18 20:00 98.4 86 20 133/68 (89) 96 07/20/18 20:00 96 07/20/18 20:00 10.0 07/20/18 19:00 90 20 95 Venturi Mask 10.0 45 07/20/18 18:50 Venturi Mask 10.0 45 07/20/18 18:50 89 22 92 Venturi Mask 10.0 45 07/20/18 18:49 92 Venturi Mask 10.0 45 07/20/18 16:00 100 07/20/18 16:00 Non-Rebreather 10.0 07/20/18 16:00 98.2 89 19 136/67 (90) 91 Height (Feet): 5 Height (Inches): 4.00 Weight (Pounds): 125 General Appearance: no acute distress, other - o x 3 HEENT: normocephalic, atraumatic, anicteric, mucous membranes moist Respiratory/Chest: crackles/rales - few, rhonchi - bilaterally - few, other - overall lungs clearer bilateral on my exam Cardiovascular: normal rate, regular rhythm, no gallop/murmur, no JVD Abdomen: normal bowel sounds, soft, non tender, no organomegaly, non distended Genitourinary: other - no pulido Extremities: no cyanosis Skin: no rash 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 No PE or aortic dissection. 2. Bilateral pulmonary edema/infiltrates. Cannot exclude underlying pulmonary lesion, consider followup to ensure resolution. 3. Small bilateral pleural effusions. Chest x-ray - 07/16 - FINDINGS: Lungs: Bilateral pulmonary infiltrates/edema. Pleural space: Unremarkable. No pneumothorax. Heart: Unremarkable. No cardiomegaly. Mediastinum: Unremarkable. Bones/joints: Unremarkable. IMPRESSION: Bilateral pulmonary infiltrates/edema. Chest x-ray - 07/21/18 - Findings: Bilateral mixed interstitial and airspace infiltrates versus edema are essentially unchanged. There is evidence of slight reaccumulation of pleural fluid on the left. Pleural fluid on the right previously demonstrated sonographically is not evident on plain radiograph. Impression: Suggestion of some reaccumulation of pleural fluid on the left, over one day Unchanged bilateral parenchymal disease Chest x-ray - 07/19/18 - Findings: Much less optimal inspiration currently. Diffuse bilateral interstitial and airspace disease is probably unchanged allowing for differences in degree of inspiration. There is probably some pleural fluid now present bilaterally. Impression: Bilateral interstitial and airspace disease, infiltrates versus edema, probably not significantly changed over 3 days Low lung volumes currently. Suspect increasing bilateral pleural effusions Microbiology Date/Time Source Procedure Growth Status 07/16/18 16:05 Blood Blood Culture - Preliminary NO GROWTH AFTER 4 DAYS Resulted 07/20/18 12:30 Body Fluid Gram Stain - Final Resulted 07/20/18 12:30 Body Fluid Body Fluid Culture - Preliminary NO GROWTH Resulted 07/16/18 16:55 Nasal Nares Influenza Types A,B Antigen (SONAL) - Final Complete Microbiology Date/Time Source Procedure Growth Status 07/20/18 12:30 Body Fluid Gram Stain - Final Resulted 07/20/18 12:30 Body Fluid Body Fluid Culture - Preliminary NO GROWTH Resulted Labs Test 07/19/18 04:00 07/19/18 17:50 07/20/18 03:30 07/20/18 09:00 White Blood Count 11.3 K/UL (4.8-10.8) 9.4 K/UL (4.8-10.8) Red Blood Count 3.71 M/UL (4.20-5.40) 3.50 M/UL (4.20-5.40) Hemoglobin 10.6 G/DL (12.0-16.0) 9.9 G/DL (12.0-16.0) Hematocrit 31.5 % (37.0-47.0) 29.8 % (37.0-47.0) Mean Corpuscular Volume 85 FL (80-99) 85 FL (80-99) Mean Corpuscular Hemoglobin 28.5 PG (27.0-31.0) 28.3 PG (27.0-31.0) Mean Corpuscular Hemoglobin Concent 33.5 G/DL (32.0-36.0) 33.3 G/DL (32.0-36.0) Red Cell Distribution Width 11.0 % (11.6-14.8) 11.4 % (11.6-14.8) Platelet Count 142 K/UL (150-450) 178 K/UL (150-450) Mean Platelet Volume 8.5 FL (6.5-10.1) 8.3 FL (6.5-10.1) Neutrophils (%) (Auto) % (45.0-75.0) % (45.0-75.0) Lymphocytes (%) (Auto) % (20.0-45.0) % (20.0-45.0) Monocytes (%) (Auto) % (1.0-10.0) % (1.0-10.0) Eosinophils (%) (Auto) % (0.0-3.0) % (0.0-3.0) Basophils (%) (Auto) % (0.0-2.0) % (0.0-2.0) Differential Total Cells Counted 100 Neutrophils % (Manual) 91 % (45-75) Lymphocytes % (Manual) 4 % (20-45) Monocytes % (Manual) 5 % (1-10) Eosinophils % (Manual) 0 % (0-3) Basophils % (Manual) 0 % (0-2) Band Neutrophils 0 % (0-8) Platelet Estimate Decreased Platelet Morphology Normal Hypochromasia 1+ Anisocytosis 1+ Sodium Level 137 MMOL/L (136-145) 139 MMOL/L (136-145) Potassium Level 3.7 MMOL/L (3.5-5.1) 3.5 MMOL/L (3.5-5.1) Chloride Level 104 MMOL/L (98-107) 105 MMOL/L (98-107) Carbon Dioxide Level 24 MMOL/L (21-32) 25 MMOL/L (21-32) Anion Gap 10 mmol/L (5-15) 9 mmol/L (5-15) Blood Urea Nitrogen 11 mg/dL (7-18) 13 mg/dL (7-18) Creatinine 0.9 MG/DL (0.55-1.30) 0.9 MG/DL (0.55-1.30) Estimat Glomerular Filtration Rate > 60 mL/min (>60) > 60 mL/min (>60) Glucose Level 114 MG/DL (74-106) 89 MG/DL (74-106) Calcium Level 7.9 MG/DL (8.5-10.1) 8.7 MG/DL (8.5-10.1) Total Bilirubin 0.4 MG/DL (0.2-1.0) 0.5 MG/DL (0.2-1.0) Aspartate Amino Transf (AST/SGOT) 20 U/L (15-37) 30 U/L (15-37) Alanine Aminotransferase (ALT/SGPT) 10 U/L (12-78) 11 U/L (12-78) Alkaline Phosphatase 52 U/L (46-116) 63 U/L (46-116) Total Protein 6.7 G/DL (6.4-8.2) 7.2 G/DL (6.4-8.2) Albumin 2.1 G/DL (3.4-5.0) 2.1 G/DL (3.4-5.0) Globulin 4.6 g/dL 5.1 g/dL Albumin/Globulin Ratio 0.5 (1.0-2.7) 0.4 (1.0-2.7) Arterial Blood pH 7.533 (7.350-7.450) Arterial Blood Partial Pressure CO2 25.7 mmHg (35.0-45.0) Arterial Blood Partial Pressure O2 376.6 mmHg (75.0-100.0) Arterial Blood HCO3 21.1 mmol/L (22.0-26.0) Arterial Blood Oxygen Saturation 99.3 % (95-100) Arterial Blood Base Excess -0.5 (-2-2) Donato Test Positive Erythrocyte Sedimentation Rate 114 MM/HR (0-30) Lactate Dehydrogenase 256 U/L (81-234) C-Reactive Protein, Quantitative > 70.0 mg/dL (0.00-0.90) Rheumatoid Factor Screen 18.0 IU/mL (0.0-13.9) Prothrombin Time 10.8 SEC (9.30-11.50) Prothromb Time International Ratio 1.0 (0.9-1.1) Test 07/20/18 12:30 Body Fluid Source Thoracentesis Body Fluid Volume 24 mL Body Fluid Appearance Clear (Clear) Body Fluid RBC 473 /CUMM Body Fluid Total Nucleated Cells 714 /CUMM Body Fluid Polynuclear WBCs (%) 69 % Body Fluid Mononuclear WBCs (%) 25 % Body Fluid Mesothelial Cells (%) 6 % Body Fluid Lactate Dehydrogenase 194 IU/L (.) Current Medications Medications (Trade) Dose Ordered Sig/Dayanara Route PRN Reason Start Time Stop Time Status Last Admin Dose Admin Acetaminophen (Tylenol) 650 mg Q4H PRN ORAL fever 07/18/18 20:53 08/17/18 20:52 Acetaminophen/ Aspirin/Caffeine (Excedrin Migraine) 1 ea Q6H PRN ORAL migraine 07/18/18 20:53 08/17/18 20:52 07/19/18 11:09 Albuterol/ Ipratropium (Albuterol/ Ipratropium) 3 ml Q4H PRN HHN Shortness of Breath 07/18/18 20:53 07/23/18 20:52 07/18/18 21:38 Azithromycin (Zithromax) 500 mg Q24H ORAL 07/19/18 21:00 07/26/18 20:59 07/20/18 20:30 Chlorhexidine Gluconate (Antonia-Hex 2%) 1 applic DAILY@2000 TOPIC 07/20/18 20:00 08/18/18 19:59 Famotidine (Pepcid) 20 mg DAILY ORAL 07/19/18 09:00 08/15/18 20:14 07/21/18 09:24 Heparin Sodium (Porcine) (Heparin 5000 units/ml) 5,000 units EVERY 12 HOURS SUBQ 07/19/18 21:00 08/18/18 20:59 Ibuprofen (Advil) 400 mg Q8H PRN ORAL PAIN 1-6 07/19/18 17:15 08/18/18 17:14 07/20/18 14:05 Ipratropium [place] (Atrovent) 500 mcg Q6HRT HHN 07/19/18 17:00 07/24/18 16:59 07/21/18 13:29 Lactobacillus Acidophilus (Culturelle) 1 tab TWICE A DAY ORAL 07/19/18 18:00 08/18/18 17:59 07/21/18 09:24 Lorazepam (Ativan) 1 mg Q4H PRN ORAL For Anxiety 07/18/18 20:53 07/25/18 20:52 07/20/18 22:32 Magnesium Hydroxide (Mom) 30 ml BIDPRN PRN ORAL Constipation 07/19/18 09:00 08/18/18 08:59 Meloxicam (Mobic) 15 mg DAILY ORAL 07/19/18 09:00 08/16/18 08:59 07/21/18 09:24 Morphine Sulfate (Morphine Sulfate) 2 mg Q3H PRN IVP Severe Pain (Pain Scale 7-10) 07/19/18 17:15 07/23/18 20:53 Ondansetron HCl (Zofran ODT) 4 mg Q6H PRN ORAL Nausea & Vomiting 07/19/18 16:30 08/18/18 16:29 07/19/18 16:54 Sertraline HCl (Zoloft) 100 mg DAILY ORAL 07/19/18 09:00 08/15/18 20:14 07/21/18 09:24 Zolpidem Tartrate (Ambien) 5 mg HSPRN PRN ORAL Insomnia 07/18/18 20:54 07/25/18 20:53 Naz Sainz MD Jul 21, 2018 14:37
--- NOTE | 2018-07-21 14:52 | Pulmonology Progress Note ---
Assessment/Plan Assessment/Plan HPI Patient is a 57-year-old female visiting [place], who presented after increased right-sided headache and vomiting. The patient reports having a syncopal episode after standing, having fallen and hit her head. She reports having a persistent headache as well as multiple episodes of vomiting. She reports having generalized body aches and chills. She states that she had not been having any diarrhea. She reports having a nonproductive cough. Previous neck surgery to her neck where she had a nerve ball removed. Patient had prior history of lung nodule and had previously had a CT imaging which showed no change in the nodule.The patient had been taking hormone replacement therapy had recently flown from [place]. Patient denies recent foreign travel.The patient had syncopal episode after standing while in the bathroom. She reported feeling lightheaded prior to syncope. Denies sick contacts, no h/o immunosupression/connective tissue disease Less SOB Positive Mycoplasma Serology - antibiotics per ID S/p Thoracentesis, no growth Cutrrent CXR: 07/21: Findings: Bilateral mixed interstitial and airspace infiltrates versus edema are essentially unchanged. There is evidence of slight reaccumulation of pleural fluid on the left. Pleural fluid on the right previously demonstrated sonographically is not evident on plain radiograph. Impression: Suggestion of some reaccumulation of pleural fluid on the left, over one day CXR: Impression: Bilateral interstitial and airspace disease, infiltrates versus edema, probably not significantly changed over 3 days Low lung volumes currently. Suspect increasing bilateral pleural effusions Previous CT Angio negative for PE On Antibiotics per ID Allergies: Coded Allergies: CEPHALEXIN (Verified Allergy, Unknown, 07/16/18) SULFAMETHOXAZOLE (Verified Allergy, Unknown, 07/16/18) TRIMETHOPRIM (Verified Allergy, Unknown, 07/16/18) Patient History Past Medical History: unable to obtain Reviewed Nursing Documentation: PMH: Agreed; PSxH: Agreed Nursing Documentation-PMH Past Medical History: No Stated History Review of Systems All Other Systems: negative except mentioned in HPI Physical Exam Vital Signs Noted Sp02 EP Interpretation: reviewed, normal General Appearance: normal inspection, alert, no apparent distress, GCS 15 Head: other - right parietal scalp laceration 1cm linear, dried blood Eyes: normal eye exam, PERRL, EOMI, lids + conjunctiva normal, no hyphema, no racoon eyes ENT: normal ENT inspection, TMs + canals normal, oropharynx normal, no ruvalcaba signs Neck: trach midline, no bony tend, full range of motion without pain Respiratory: effort normal, no retractions, speaking in full sentences Cardiovascular: regular rate, rhythm, no JVD Cardiovascular #2: 2+ radial (R), 2+ radial (L), 2+ dorsalis pedis (R), 2+ dorsalis pedis (L) Gastrointestinal: normal inspection, non-tender, non-distended, no rebound/ guarding, normal bowel sounds Genitourinary: normal inspection Musculoskeletal: normal inspection, normal ROM, non-tender, back normal Skin: no rash, normal palpation, other - superficial laceration to right parietal scalp Neurologic: normal inspection, CN II-XII intact, oriented x3, sensory intact, motor strength/tone normal, normal speech Psychiatric: normal inspection, judgment & insight normal, memory normal, mood normal, no suicidal/homicidal ideation Medical Decision Making Impression: Primary Impression: Syncope Head injury Bilateral pleural effusion Pneumonia Pulmonary Nodule Axillary adenopathy Mediastinal lymphadenopathy Plan IV fluids. 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 Out patient follow up of Pulmonary Nodule PPX O2 PRN - start BiPAP PRN, repeat ABG CXR: Bilateral infiltrates CT Chest: No PE, Pulmonary nodule, Mediastinal LN Labs Test 07/16/18 15:48 07/16/18 17:15 White Blood Count 12.2 K/UL (4.8-10.8) Red Blood Count 4.96 M/UL (4.20-5.40) Hemoglobin 15.1 G/DL (12.0-16.0) Hematocrit 42.9 % (37.0-47.0) Mean Corpuscular Volume 87 FL (80-99) Mean Corpuscular Hemoglobin 30.4 PG (27.0-31.0) Mean Corpuscular Hemoglobin Concent 35.1 G/DL (32.0-36.0) Red Cell Distribution Width 11.5 % (11.6-14.8) Platelet Count 181 K/UL (150-450) Mean Platelet Volume 9.4 FL (6.5-10.1) Neutrophils (%) (Auto) % (45.0-75.0) Lymphocytes (%) (Auto) % (20.0-45.0) Monocytes (%) (Auto) % (1.0-10.0) Eosinophils (%) (Auto) % (0.0-3.0) Basophils (%) (Auto) % (0.0-2.0) Prothrombin Time 10.6 SEC (9.30-11.50) Prothromb Time International Ratio 1.0 (0.9-1.1) Activated Partial Thromboplast Time 29 SEC (23-33) D-Dimer 1.44 mg/L FEU (0.00-0.49) Sodium Level 133 MMOL/L (136-145) Potassium Level 5.0 MMOL/L (3.5-5.1) Chloride Level 100 MMOL/L (98-107) Carbon Dioxide Level 24 MMOL/L (21-32) Anion Gap 9 mmol/L (5-15) Blood Urea Nitrogen 31 mg/dL (7-18) Creatinine 1.7 MG/DL (0.55-1.30) Estimat Glomerular Filtration Rate 31.2 mL/min (>60) Glucose Level 120 MG/DL (74-106) Calcium Level 8.8 MG/DL (8.5-10.1) Total Bilirubin 0.5 MG/DL (0.2-1.0) Aspartate Amino Transf (AST/SGOT) 23 U/L (15-37) Alanine Aminotransferase (ALT/SGPT) 23 U/L (12-78) Alkaline Phosphatase 72 U/L (46-116) Total Protein 8.7 G/DL (6.4-8.2) Albumin 3.2 G/DL (3.4-5.0) Globulin 5.5 g/dL Albumin/Globulin Ratio 0.6 (1.0-2.7) EKG Diagnostic Results Rate: normal Rhythm: NSR ST Segments: no acute changes Rhythm Strip Diag. Results EP Interpretation: yes Rhythm: NSR, no PVC's, no ectopy CT Chest: 1. No PE or aortic dissection. 2. Bilateral pulmonary edema/infiltrates. Cannot exclude underlying pulmonary lesion, consider followup to ensure resolution. 3. Small bilateral pleural effusions. Subjective ROS Limited/Unobtainable: No Allergies: Coded Allergies: CEPHALEXIN (Verified Allergy, Unknown, 07/16/18) SULFAMETHOXAZOLE (Verified Allergy, Unknown, 07/16/18) TRIMETHOPRIM (Verified Allergy, Unknown, 07/16/18) Objective Last 24 Hour Vital Signs Date Time Temp Pulse Resp B/P (MAP) Pulse Ox O2 Delivery O2 Flow Rate FiO2 07/21/18 13:40 102 20 98 Venturi Mask 10.0 50 07/21/18 13:30 105 20 94 Venturi Mask 10.0 50 07/21/18 08:00 Venturi Mask 6.0 07/21/18 08:00 99.5 102 18 138/80 (99) 94 07/21/18 08:00 99.5 102 18 138/80 (99) 94 07/21/18 08:00 6.0 45 07/21/18 07:39 109 07/21/18 07:19 98 20 95 Venturi Mask 10.0 45 07/21/18 07:09 99 22 96 Venturi Mask 10.0 50 07/21/18 06:58 Venturi Mask 10.0 50 07/21/18 06:58 96 Venturi Mask 10.0 50 07/21/18 04:00 10.0 07/21/18 04:00 98.1 83 20 131/82 (98) 94 07/21/18 04:00 95 07/21/18 04:00 Non-Rebreather 10.0 07/21/18 02:10 84 22 96 Venturi Mask 10.0 45 07/21/18 01:59 89 22 94 Venturi Mask 12.0 50 07/21/18 00:00 86 07/21/18 00:00 Non-Rebreather 10.0 07/21/18 00:00 98.2 84 19 134/69 (90) 95 07/20/18 21:23 84 34 95 Facial 40 07/20/18 20:00 Non-Rebreather 10.0 07/20/18 20:00 98.4 86 20 133/68 (89) 96 07/20/18 20:00 96 07/20/18 20:00 10.0 07/20/18 19:00 90 20 95 Venturi Mask 10.0 45 07/20/18 18:50 Venturi Mask 10.0 45 07/20/18 18:50 89 22 92 Venturi Mask 10.0 45 07/20/18 18:49 92 Venturi Mask 10.0 45 07/20/18 16:00 100 07/20/18 16:00 Non-Rebreather 10.0 07/20/18 16:00 98.2 89 19 136/67 (90) 91 Intake and Output 07/20/18 07/21/18 19:00 07:00 Output Total 600 ml Balance -600 ml Other 600 ml # Voids 5 1 # Bowel Movements 6 Microbiology Date/Time Source Procedure Growth Status 07/20/18 12:30 Body Fluid Gram Stain - Final Resulted 07/20/18 12:30 Body Fluid Body Fluid Culture - Preliminary NO GROWTH Resulted Current Medications Medications (Trade) Dose Ordered Sig/Dayanara Route PRN Reason Start Time Stop Time Status Last Admin Dose Admin Acetaminophen (Tylenol) 650 mg Q4H PRN ORAL fever 07/18/18 20:53 08/17/18 20:52 Acetaminophen/ Aspirin/Caffeine (Excedrin Migraine) 1 ea Q6H PRN ORAL migraine 07/18/18 20:53 08/17/18 20:52 07/19/18 11:09 Albuterol/ Ipratropium (Albuterol/ Ipratropium) 3 ml Q4H PRN HHN Shortness of Breath 07/18/18 20:53 07/23/18 20:52 07/18/18 21:38 Azithromycin (Zithromax) 500 mg Q24H ORAL 07/19/18 21:00 07/26/18 20:59 07/20/18 20:30 Chlorhexidine Gluconate (Antonia-Hex 2%) 1 applic DAILY@2000 TOPIC 07/20/18 20:00 08/18/18 19:59 Famotidine (Pepcid) 20 mg DAILY ORAL 07/19/18 09:00 08/15/18 20:14 07/21/18 09:24 Heparin Sodium (Porcine) (Heparin 5000 units/ml) 5,000 units EVERY 12 HOURS SUBQ 07/19/18 21:00 08/18/18 20:59 Ibuprofen (Advil) 400 mg Q8H PRN ORAL PAIN 1-6 07/19/18 17:15 08/18/18 17:14 07/20/18 14:05 Ipratropium [place] (Atrovent) 500 mcg Q6HRT HHN 07/19/18 17:00 07/24/18 16:59 07/21/18 13:29 Lactobacillus Acidophilus (Culturelle) 1 tab TWICE A DAY ORAL 07/19/18 18:00 08/18/18 17:59 07/21/18 09:24 Lorazepam (Ativan) 1 mg Q4H PRN ORAL For Anxiety 07/18/18 20:53 07/25/18 20:52 07/20/18 22:32 Magnesium Hydroxide (Mom) 30 ml BIDPRN PRN ORAL Constipation 07/19/18 09:00 08/18/18 08:59 Meloxicam (Mobic) 15 mg DAILY ORAL 07/19/18 09:00 08/16/18 08:59 07/21/18 09:24 Morphine Sulfate (Morphine Sulfate) 2 mg Q3H PRN IVP Severe Pain (Pain Scale 7-10) 07/19/18 17:15 07/23/18 20:53 Ondansetron HCl (Zofran ODT) 4 mg Q6H PRN ORAL Nausea & Vomiting 07/19/18 16:30 08/18/18 16:29 07/19/18 16:54 Sertraline HCl (Zoloft) 100 mg DAILY ORAL 07/19/18 09:00 08/15/18 20:14 07/21/18 09:24 Zolpidem Tartrate (Ambien) 5 mg HSPRN PRN ORAL Insomnia 07/18/18 20:54 07/25/18 20:53 Renny Roper MD Jul 21, 2018 14:52
[2018-07-21 16:00] VITALS: BP 127/78
[2018-07-21] MEDS ORDERED: Albuterol/Ipratropium 3ml neb HHN PRN (18:30)
[2018-07-21] MEDS ORDERED: Morphine Sulfate 2mg/ml Inj IVP PRN (18:30)
[2018-07-21] MEDS ORDERED: Excedrin Migraine tab ORAL PRN (18:30)
[2018-07-21] MEDS ORDERED: Milk of Magnesia 30ml Ud ORAL PRN (18:30)
[2018-07-21 20:00] VITALS: BP 139/88
[2018-07-21] MEDS: Dyna-Hex 2% Top Sol 2oz TOPIC SCH (20:00)
[2018-07-21] MEDS ORDERED: Zolpidem 5mg tab ORAL PRN (21:00)
[2018-07-21] MEDS: Azithromycin 250mg tab ORAL SCH (21:04)
[2018-07-21] MEDS: LORazepam 1mg tab ORAL PRN (22:35)
[2018-07-22] VITALS: BP 127/85
[2018-07-22] MEDS: Ipratropium 0.02% Inh Soln 2.5ml UD HHN SCH ×4 (01:03→19:34)
[2018-07-22 04:00] VITALS: BP 131/80
[2018-07-22 06:35] LABS: BASOPHILS % (AUTO) 1.9 % (0.0-2.0); EOSINOPHILS % (AUTO) 6.3 % (0.0-3.0); HEMATOCRIT 27.2 % (37.0-47.0); HEMOGLOBIN 9.3 G/DL (12.0-16.0); MEAN CORPUSCULAR VOLUME 85 FL (80-99); NEUTROPHILS % (AUTO) 76.8 % (45.0-75.0); PLATELET COUNT 247 K/UL (150-450); RED BLOOD COUNT 3.19 M/UL (4.20-5.40); RED CELL DISTRIBUTION WIDTH 11.4 % (11.6-14.8); WHITE BLOOD COUNT 5.6 K/UL (4.8-10.8)
[2018-07-22 06:37] LABS: ANION GAP 7 mmol/L (5-15); BLOOD UREA NITROGEN 9 mg/dL (7-18); CALCIUM 8.5 MG/DL (8.5-10.1); CARBON DIOXIDE 28 MMOL/L (21-32); CHLORIDE 106 MMOL/L (98-107); CREATININE 0.8 MG/DL (0.55-1.30); POTASSIUM 3.8 MMOL/L (3.5-5.1); SODIUM 141 MMOL/L (136-145)
[2018-07-22 08:00] VITALS: BP 105/95
[2018-07-22] MEDS: Heparin 5000 units/ml inj SUBQ SCH ×2 (08:04→20:26)
[2018-07-22] MEDS: Meloxicam 15 MG TAB ORAL SCH (08:07)
[2018-07-22] MEDS: Lactobacillus-GG tablet ORAL SCH ×2 (08:07→17:08)
[2018-07-22] MEDS ORDERED: Sertraline 100mg tab ORAL SCH ×3 (09:00→09:05)
[2018-07-22 12:00] VITALS: BP 131/84
--- NOTE | 2018-07-22 13:17 | Infectious Diseases Prog Note ---
Assessment/Plan Assessment/Plan A) 1) mycoplasma pna, + mycoplasma IGM and IGG, sob, hypoxia, + CT scan with infiltrates/nodules - clinically improved, s/p thoracentesis 2) sepsis, nirav, leukocytosis, fevers, tachypnea, tachycardia - clinically improved 3) pmh - depression 4) allergies - cephalexin, sulfa, tolerates zosyn/pcn 5) fh-nc, sh-negative, mar noted, notes and records noted 6) d/w RN P) 1) azithromycin - day # 5 - plan on 14 day total course because of severe clinical presentation 2) monitor labs, serology and chest x-ray, cannot obtain sputum sample 3) d/w Dr. Holm, d/w Dr. Roper 4) continue treatment per primary and consultants 5) avoid picc line if possible, oral azithromycin with excellent bioavailability Subjective Constitutional: Reports: fatigue, other - feels better; Denies: fever HEENT: Reports: congestion - les Respiratory: Reports: shortness of breath - less Cardiovascular: Denies: chest pain Gastrointestinal/Abdominal: Denies: nausea, vomiting, diarrhea Genitourinary: Reports: other - no pulido Neurologic: Denies: headache Psychiatric: Denies: depression Skin: Denies: rash Musculoskeletal: Reports: pain - less pleuritic pain Allergies: Coded Allergies: CEPHALEXIN (Verified Allergy, Unknown, 07/16/18) SULFAMETHOXAZOLE (Verified Allergy, Unknown, 07/16/18) TRIMETHOPRIM (Verified Allergy, Unknown, 07/16/18) Objective Vital Signs Last 24 Hour Vital Signs Date Time Temp Pulse Resp B/P (MAP) Pulse Ox O2 Delivery O2 Flow Rate FiO2 07/22/18 12:00 98.8 91 19 131/84 (100) 100 07/22/18 08:32 Venturi Mask 10.0 07/22/18 08:00 98.0 96 20 105/95 (98) 95 07/22/18 07:32 100 22 98 Venturi Mask 10.0 45 07/22/18 07:22 95 Venturi Mask 10.0 45 07/22/18 07:22 Venturi Mask 10.0 45 07/22/18 07:22 101 24 92 Venturi Mask 10.0 45 07/22/18 04:00 98.5 76 22 131/80 (97) 95 07/22/18 02:50 88 20 Venturi Mask 10.0 45 07/22/18 01:13 90 24 99 Bi-pap 45 07/22/18 01:03 90 27 98 Facial 45 07/22/18 01:03 90 27 99 Bi-pap 45 07/22/18 00:00 97.4 92 22 127/85 (99) 96 07/21/18 22:38 92 26 97 Facial 45 07/21/18 21:00 Room Air 07/21/18 20:00 99.1 99 20 139/88 (105) 95 07/21/18 18:49 97 20 97 Venturi Mask 10.0 50 07/21/18 18:37 97 22 94 Venturi Mask 10.0 50 07/21/18 18:36 95 Venturi Mask 10.0 50 07/21/18 18:36 Venturi Mask 10.0 50 07/21/18 16:00 6.0 45 07/21/18 16:00 Room Air 07/21/18 16:00 97.9 114 20 127/78 (94) 98 07/21/18 16:00 116 07/21/18 13:40 102 20 98 Venturi Mask 10.0 50 07/21/18 13:30 105 20 94 Venturi Mask 10.0 50 Height (Feet): 5 Height (Inches): 4.00 Weight (Pounds): 125 General Appearance: no acute distress HEENT: normocephalic, atraumatic, anicteric, mucous membranes moist Respiratory/Chest: crackles/rales - less, rhonchi - bilaterally - less, pleural rub Cardiovascular: normal rate, regular rhythm, no gallop/murmur, no JVD Abdomen: normal bowel sounds, soft, non tender, no organomegaly, non distended Genitourinary: other - no pulido, no cva pain Extremities: no cyanosis Skin: no rash Neurologic/Psychiatric: per diem rn II-XII grossly normal, alert, oriented x 3, responsive Lymphatic: no neck adenopathy Musculoskeletal: no effusion Objective CT chest - IMPRESSION: 1. No PE or aortic dissection. 2. Bilateral pulmonary edema/infiltrates. Cannot exclude underlying pulmonary lesion, consider followup to ensure resolution. 3. Small bilateral pleural effusions. Chest x-ray - 07/16 - FINDINGS: Lungs: Bilateral pulmonary infiltrates/edema. Pleural space: Unremarkable. No pneumothorax. Heart: Unremarkable. No cardiomegaly. Mediastinum: Unremarkable. Bones/joints: Unremarkable. IMPRESSION: Bilateral pulmonary infiltrates/edema. Chest x-ray - 07/21/18 - Findings: Bilateral mixed interstitial and airspace infiltrates versus edema are essentially unchanged. There is evidence of slight reaccumulation of pleural fluid on the left. Pleural fluid on the right previously demonstrated sonographically is not evident on plain radiograph. Impression: Suggestion of some reaccumulation of pleural fluid on the left, over one day Unchanged bilateral parenchymal disease Chest x-ray - 07/19/18 - Findings: Much less optimal inspiration currently. Diffuse bilateral interstitial and airspace disease is probably unchanged allowing for differences in degree of inspiration. There is probably some pleural fluid now present bilaterally. Impression: Bilateral interstitial and airspace disease, infiltrates versus edema, probably not significantly changed over 3 days Low lung volumes currently. Suspect increasing bilateral pleural effusions Microbiology Date/Time Source Procedure Growth Status 07/16/18 16:05 Blood Blood Culture - Final NO GROWTH AFTER 5 DAYS Complete 07/20/18 12:30 Body Fluid Gram Stain - Final Resulted 07/20/18 12:30 Body Fluid Body Fluid Culture - Preliminary NO GROWTH AFTER 24 HOURS Resulted 07/16/18 16:55 Nasal Nares Influenza Types A,B Antigen (SONAL) - Final Complete Microbiology Date/Time Source Procedure Growth Status 07/20/18 12:30 Body Fluid Gram Stain - Final Resulted 07/20/18 12:30 Body Fluid Body Fluid Culture - Preliminary NO GROWTH AFTER 24 HOURS Resulted Laboratory Tests Test 07/22/18 05:30 07/22/18 11:40 White Blood Count 5.6 K/UL (4.8-10.8) Red Blood Count 3.19 M/UL (4.20-5.40) L Hemoglobin 9.3 G/DL (12.0-16.0) L Hematocrit 27.2 % (37.0-47.0) L Mean Corpuscular Volume 85 FL (80-99) Mean Corpuscular Hemoglobin 29.2 PG (27.0-31.0) Mean Corpuscular Hemoglobin Concent 34.2 G/DL (32.0-36.0) Red Cell Distribution Width 11.4 % (11.6-14.8) L Platelet Count 247 K/UL (150-450) Mean Platelet Volume 8.1 FL (6.5-10.1) Neutrophils (%) (Auto) 76.8 % (45.0-75.0) H Lymphocytes (%) (Auto) 7.0 % (20.0-45.0) L Monocytes (%) (Auto) 8.0 % (1.0-10.0) Eosinophils (%) (Auto) 6.3 % (0.0-3.0) H Basophils (%) (Auto) 1.9 % (0.0-2.0) Sodium Level 141 MMOL/L (136-145) Potassium Level 3.8 MMOL/L (3.5-5.1) Chloride Level 106 MMOL/L (98-107) Carbon Dioxide Level 28 MMOL/L (21-32) Anion Gap 7 mmol/L (5-15) Blood Urea Nitrogen 9 mg/dL (7-18) Creatinine 0.8 MG/DL (0.55-1.30) Estimat Glomerular Filtration Rate > 60 mL/min (>60) Glucose Level 96 MG/DL (74-106) Calcium Level 8.5 MG/DL (8.5-10.1) Lactate Dehydrogenase 262 U/L (135-225) H C-Reactive Protein, Quantitative 19.9 mg/dL (0.00-0.90) H Body Fluid Glucose Pending Current Medications Medications (Trade) Dose Ordered Sig/Dayanara Route PRN Reason Start Time Stop Time Status Last Admin Dose Admin Acetaminophen (Tylenol) 650 mg Q4H PRN ORAL fever 07/21/18 18:30 08/17/18 18:29 Acetaminophen/ Aspirin/Caffeine (Excedrin Migraine) 1 ea Q6H PRN ORAL migraine 07/21/18 18:30 08/17/18 18:29 Albuterol/ Ipratropium (Albuterol/ Ipratropium) 3 ml Q4H PRN HHN Shortness of Breath 07/21/18 18:30 18 18:29 Azithromycin (Zithromax) 500 mg Q24H ORAL 07/21/18 21:00 07/26/18 20:59 07/21/18 21:04 Chlorhexidine Gluconate (Antonia-Hex 2%) 1 applic DAILY@1999 TOPIC 07/21/18 20:00 08/18/18 19:59 Famotidine (Pepcid) 20 mg DAILY ORAL 07/22/18 09:00 08/15/18 20:14 07/22/18 08:07 Heparin Sodium (Porcine) (Heparin 5000 units/ml) 5,000 units EVERY 12 HOURS SUBQ 07/21/18 21:00 08/18/18 20:59 Ibuprofen (Advil) 400 mg Q8H PRN ORAL PAIN 1-6 07/21/18 18:30 08/20/18 18:29 Ipratropium [place] (Atrovent) 500 mcg Q6HRT HHN 07/21/18 19:00 07/24/18 16:59 07/22/18 13:09 Lactobacillus Acidophilus (Culturelle) 1 tab TWICE A DAY ORAL 07/22/18 09:00 08/18/18 17:59 07/22/18 08:07 Lorazepam (Ativan) 1 mg Q4H PRN ORAL For Anxiety 07/21/18 18:30 07/25/18 18:29 07/21/18 22:35 Magnesium Hydroxide (Mom) 30 ml BIDPRN PRN ORAL Constipation 07/21/18 18:30 08/20/18 18:29 Meloxicam (Mobic) 15 mg DAILY ORAL 07/22/18 09:00 08/16/18 08:59 07/22/18 08:07 Morphine Sulfate (Morphine Sulfate) 2 mg Q3H PRN IVP Severe Pain (Pain Scale 7-10) 07/21/18 18:30 07/23/18 18:29 Ondansetron HCl (Zofran ODT) 4 mg Q6H PRN ORAL Nausea & Vomiting 07/21/18 18:30 08/18/18 18:29 Sertraline HCl (Zoloft) 200 mg DAILY ORAL 07/23/18 09:00 08/15/18 20:14 Zolpidem Tartrate (Ambien) 5 mg HSPRN PRN ORAL Insomnia 07/21/18 21:00 07/25/18 20:53 Naz Sainz MD Jul 22, 2018 13:17
--- NOTE | 2018-07-22 13:51 | Pre-Procedure Note/Attestation ---
Pre-Procedure Note/Attestation Complete Prior to Procedure Planned Procedure: right Procedure Narrative: US guided thoracentesis Indications for Procedure Pre-Operative Diagnosis: Pleural effusion Attestation I attest that I discussed the nature of the procedure; its benefits; risks and complications; and alternatives (and the risks and benefits of such alternatives ), prior to the procedure, with the patient (or the patient's legal loss prevention representative). I attest that, if there was a reasonable possibility of needing a blood transfusion, the patient (or the patient's legal loss prevention representative) was given the [facility] standardized written summary, pursuant to the Severo Alix Blood Safety Act ([place] Health and Safety Code # 1645, as amended). I attest that I re-evaluated the patient just prior to the surgery and that there has been no change in the patient's H&P, except as documented below: Marc Martins MD Jul 22, 2018 13:51
--- NOTE | 2018-07-22 13:52 | Brief Operative Note ---
Immediate Post Operative Note Operative Note Chief Complaint: SOB Pre-op Diagnosis: Pleural effusion Procedure: R thoracentesis Post-op Diagnosis: same as pre-op Anesthesia: local Specimen: yes - 60 ML fluid sent to lab Complications: none Condition: stable Fluids: none Implant(s) used?: No Marc Martins MD Jul 22, 2018 13:52
--- NOTE | 2018-07-22 13:59 | Diagnostic Imaging Report ---
Indication: Status post thoracentesis Technique: One view of the chest Comparison: 07/21/2018 Findings: No residual pleural fluid demonstrated, although this was also not visible on the previous chest radiograph. No gross pneumothorax. Bilateral interstitial and airspace opacities are probably unchanged allowing for differences in degree of inspiration. There is evidence of slightly increased left pleural fluid. Impression: No radiographically evident, indication, status post recent right thoracentesis Suspected slightly increased left pleural effusion in the interim. Otherwise essentially stable findings as described
--- NOTE | 2018-07-22 14:04 | Diagnostic Imaging Report ---
Indications: Pleural effusion Technique: Ultrasound used to localize optimal puncture site. Sterile prepping and draping left chest. Local anesthesia with 1% lidocaine. Under real-time ultrasound guidance, puncture pleural space using thoracentesis needle. Stylet removed. Catheter placed to vacuum bottle suction. Total 610 milliliters of fluid aspirated. Patient tolerated procedure well, without immediate complication. Findings: Followup sonography demonstrates complete resolution of pleural fluid. Impression: Successful ultrasound-guided thoracentesis, yielding 610 milliliters of fluid
--- NOTE | 2018-07-22 14:26 | General Progress Note ---
Assessment/Plan Problem List: (1) Pneumonia Assessment & Plan: MYCOPLASMA ICD Codes: J18.9 - Pneumonia, unspecified organism SNOMED: 805868203 (2) Mediastinal lymphadenopathy ICD Codes: R59.0 - Localized enlarged lymph nodes SNOMED: 79327828 (3) Axillary adenopathy ICD Codes: R59.0 - Localized enlarged lymph nodes SNOMED: 517370689 (4) Bilateral pleural effusion ICD Codes: J90 - Pleural effusion, not elsewhere classified SNOMED: 380335291 (5) Syncope ICD Codes: R55 - Syncope and collapse SNOMED: 653088418 Assessment/Plan Abxs per ID bronchodilators Discussed with RN PT Subjective Allergies: Coded Allergies: CEPHALEXIN (Verified Allergy, Unknown, 07/16/18) SULFAMETHOXAZOLE (Verified Allergy, Unknown, 07/16/18) TRIMETHOPRIM (Verified Allergy, Unknown, 07/16/18) Subjective feels better Objective Last 24 Hour Vital Signs Date Time Temp Pulse Resp B/P (MAP) Pulse Ox O2 Delivery O2 Flow Rate FiO2 07/22/18 13:27 97 20 95 Venturi Mask 6.0 35 07/22/18 13:09 97 20 98 Venturi Mask 10.0 45 07/22/18 12:00 98.8 91 19 131/84 (100) 100 07/22/18 08:32 Venturi Mask 10.0 07/22/18 08:00 98.0 96 20 105/95 (98) 95 07/22/18 07:32 100 22 98 Venturi Mask 10.0 45 07/22/18 07:22 95 Venturi Mask 10.0 45 07/22/18 07:22 Venturi Mask 10.0 45 07/22/18 07:22 101 24 92 Venturi Mask 10.0 45 07/22/18 04:00 98.5 76 22 131/80 (97) 95 07/22/18 02:50 88 20 Venturi Mask 10.0 45 07/22/18 01:13 90 24 99 Bi-pap 45 07/22/18 01:03 90 27 98 Facial 45 07/22/18 01:03 90 27 99 Bi-pap 45 07/22/18 00:00 97.4 92 22 127/85 (99) 96 07/21/18 22:38 92 26 97 Facial 45 07/21/18 21:00 Room Air 07/21/18 20:00 99.1 99 20 139/88 (105) 95 07/21/18 18:49 97 20 97 Venturi Mask 10.0 50 07/21/18 18:37 97 22 94 Venturi Mask 10.0 50 07/21/18 18:36 95 Venturi Mask 10.0 50 07/21/18 18:36 Venturi Mask 10.0 50 07/21/18 16:00 6.0 45 07/21/18 16:00 Room Air 07/21/18 16:00 97.9 114 20 127/78 (94) 98 07/21/18 16:00 116 Intake and Output 07/21/18 07/22/18 19:00 07:00 Intake Total 696 ml 120 ml Balance 696 ml 120 ml Intake Oral 696 ml 120 ml # Voids 4 2 Laboratory Tests 07/22/18 05:30: White Blood Count 5.6, Red Blood Count 3.19L, Hemoglobin 9.3L, Hematocrit 27.2L , Mean Corpuscular Volume 85, Mean Corpuscular Hemoglobin 29.2, Mean Corpuscular Hemoglobin Concent 34.2, Red Cell Distribution Width 11.4L, Platelet Count 247, Mean Platelet Volume 8.1, Neutrophils (%) (Auto) 76.8H, Lymphocytes (%) (Auto) 7.0L, Monocytes (%) (Auto) 8.0, Eosinophils (%) (Auto) 6.3H, Basophils (%) (Auto) 1.9, Sodium Level 141, Potassium Level 3.8, Chloride Level 106, Carbon Dioxide Level 28, Anion Gap 7, Blood Urea Nitrogen 9, Creatinine 0.8, Estimat Glomerular Filtration Rate > 60, Glucose Level 96, Calcium Level 8.5, Lactate Dehydrogenase 262H, C-Reactive Protein, Quantitative 19.9H 07/22/18 11:40: Body Fluid Glucose [Pending] Height (Feet): 5 Height (Inches): 4.00 Weight (Pounds): 125 Cardiovascular: normal rate Respiratory/Chest: lungs clear Jc Holm MD Jul 22, 2018 14:26
[2018-07-22] MEDS ORDERED: Albuterol/Ipratropium 3ml neb HHN PRN (15:00)
[2018-07-22] MEDS ORDERED: Morphine Sulfate 2mg/ml Inj IVP PRN (15:00)
[2018-07-22 16:00] VITALS: BP 126/82
[2018-07-22] MEDS: Dyna-Hex 2% Top Sol 2oz TOPIC SCH (19:48)
[2018-07-22 20:17] VITALS: BP_SYST 106; BP_SYST 150; BP_DIAS 67; BP_DIAS 85
[2018-07-22] MEDS: Azithromycin 250mg tab ORAL SCH (20:25)
[2018-07-22] MEDS: LORazepam 1mg tab ORAL PRN (21:49)
--- NOTE | 2018-07-22 23:12 | Pulmonology Progress Note ---
Assessment/Plan Assessment/Plan HPI Patient is a 57-year-old female visiting [place], who presented after increased right-sided headache and vomiting. The patient reports having a syncopal episode after standing, having fallen and hit her head. She reports having a persistent headache as well as multiple episodes of vomiting. She reports having generalized body aches and chills. She states that she had not been having any diarrhea. She reports having a nonproductive cough. Previous neck surgery to her neck where she had a nerve ball removed. Patient had prior history of lung nodule and had previously had a CT imaging which showed no change in the nodule.The patient had been taking hormone replacement therapy had recently flown from [place]. Patient denies recent foreign travel.The patient had syncopal episode after standing while in the bathroom. She reported feeling lightheaded prior to syncope. Denies sick contacts, no h/o immunosupression/connective tissue disease Less SOB Positive Mycoplasma Serology - antibiotics per ID S/p Thoracentesis, no growth Cutrrent CXR: 07/21: Findings: Bilateral mixed interstitial and airspace infiltrates versus edema are essentially unchanged. There is evidence of slight reaccumulation of pleural fluid on the left. Pleural fluid on the right previously demonstrated sonographically is not evident on plain radiograph. Impression: Suggestion of some reaccumulation of pleural fluid on the left, over one day CXR: Impression: Bilateral interstitial and airspace disease, infiltrates versus edema, probably not significantly changed over 3 days Low lung volumes currently. Suspect increasing bilateral pleural effusions Previous CT Angio negative for PE On Antibiotics per ID Allergies: Coded Allergies: CEPHALEXIN (Verified Allergy, Unknown, 07/16/18) SULFAMETHOXAZOLE (Verified Allergy, Unknown, 07/16/18) TRIMETHOPRIM (Verified Allergy, Unknown, 07/16/18) Patient History Past Medical History: unable to obtain Reviewed Nursing Documentation: PMH: Agreed; PSxH: Agreed Nursing Documentation-PMH Past Medical History: No Stated History Review of Systems All Other Systems: negative except mentioned in HPI Physical Exam Vital Signs Noted Sp02 EP Interpretation: reviewed, normal General Appearance: normal inspection, alert, no apparent distress, GCS 15 Head: other - right parietal scalp laceration 1cm linear, dried blood Eyes: normal eye exam, PERRL, EOMI, lids + conjunctiva normal, no hyphema, no racoon eyes ENT: normal ENT inspection, TMs + canals normal, oropharynx normal, no ruvalcaba signs Neck: trach midline, no bony tend, full range of motion without pain Respiratory: effort normal, no retractions, speaking in full sentences Cardiovascular: regular rate, rhythm, no JVD Cardiovascular #2: 2+ radial (R), 2+ radial (L), 2+ dorsalis pedis (R), 2+ dorsalis pedis (L) Gastrointestinal: normal inspection, non-tender, non-distended, no rebound/ guarding, normal bowel sounds Genitourinary: normal inspection Musculoskeletal: normal inspection, normal ROM, non-tender, back normal Skin: no rash, normal palpation, other - superficial laceration to right parietal scalp Neurologic: normal inspection, CN II-XII intact, oriented x3, sensory intact, motor strength/tone normal, normal speech Psychiatric: normal inspection, judgment & insight normal, memory normal, mood normal, no suicidal/homicidal ideation Medical Decision Making Impression: Primary Impression: Syncope Head injury Bilateral pleural effusion Pneumonia Pulmonary Nodule Axillary adenopathy Mediastinal lymphadenopathy Plan IV fluids. IV Antibiotics per ID HHN [facility]BUR[employer]ATOR medications Out patient follow up of Pulmonary Nodule PPX O2 PRN - start BiPAP PRN, repeat ABG CXR: Bilateral infiltrates CT Chest: No PE, Pulmonary nodule, Mediastinal LN Labs Test 07/16/18 15:48 07/16/18 17:15 White Blood Count 12.2 K/UL (4.8-10.8) Red Blood Count 4.96 M/UL (4.20-5.40) Hemoglobin 15.1 G/DL (12.0-16.0) Hematocrit 42.9 % (37.0-47.0) Mean Corpuscular Volume 87 FL (80-99) Mean Corpuscular Hemoglobin 30.4 PG (27.0-31.0) Mean Corpuscular Hemoglobin Concent 35.1 G/DL (32.0-36.0) Red Cell Distribution Width 11.5 % (11.6-14.8) Platelet Count 181 K/UL (150-450) Mean Platelet Volume 9.4 FL (6.5-10.1) Neutrophils (%) (Auto) % (45.0-75.0) Lymphocytes (%) (Auto) % (20.0-45.0) Monocytes (%) (Auto) % (1.0-10.0) Eosinophils (%) (Auto) % (0.0-3.0) Basophils (%) (Auto) % (0.0-2.0) Prothrombin Time 10.6 SEC (9.30-11.50) Prothromb Time International Ratio 1.0 (0.9-1.1) Activated Partial Thromboplast Time 29 SEC (23-33) D-Dimer 1.44 mg/L FEU (0.00-0.49) Sodium Level 133 MMOL/L (136-145) Potassium Level 5.0 MMOL/L (3.5-5.1) Chloride Level 100 MMOL/L (98-107) Carbon Dioxide Level 24 MMOL/L (21-32) Anion Gap 9 mmol/L (5-15) Blood Urea Nitrogen 31 mg/dL (7-18) Creatinine 1.7 MG/DL (0.55-1.30) Estimat Glomerular Filtration Rate 31.2 mL/min (>60) Glucose Level 120 MG/DL (74-106) Calcium Level 8.8 MG/DL (8.5-10.1) Total Bilirubin 0.5 MG/DL (0.2-1.0) Aspartate Amino Transf (AST/SGOT) 23 U/L (15-37) Alanine Aminotransferase (ALT/SGPT) 23 U/L (12-78) Alkaline Phosphatase 72 U/L (46-116) Total Protein 8.7 G/DL (6.4-8.2) Albumin 3.2 G/DL (3.4-5.0) Globulin 5.5 g/dL Albumin/Globulin Ratio 0.6 (1.0-2.7) EKG Diagnostic Results Rate: normal Rhythm: NSR ST Segments: no acute changes Rhythm Strip Diag. Results EP Interpretation: yes Rhythm: NSR, no PVC's, no ectopy CT Chest: 1. No PE or aortic dissection. 2. Bilateral pulmonary edema/infiltrates. Cannot exclude underlying pulmonary lesion, consider followup to ensure resolution. 3. Small bilateral pleural effusions. Subjective ROS Limited/Unobtainable: No Allergies: Coded Allergies: CEPHALEXIN (Verified Allergy, Unknown, 07/16/18) SULFAMETHOXAZOLE (Verified Allergy, Unknown, 07/16/18) TRIMETHOPRIM (Verified Allergy, Unknown, 07/16/18) Objective Last 24 Hour Vital Signs Date Time Temp Pulse Resp B/P (MAP) Pulse Ox O2 Delivery O2 Flow Rate FiO2 07/22/18 21:00 Venturi Mask 6.0 07/22/18 20:17 98.6 91 19 150/85 (106) 96 07/22/18 19:45 Venturi Mask 6.0 35 07/22/18 19:44 Venturi Mask 6.0 35 07/22/18 19:44 93 Venturi Mask 10.0 45 07/22/18 19:44 Venturi Mask 6.0 35 07/22/18 16:00 97.8 84 20 126/82 (97) 98 07/22/18 13:27 97 20 95 Venturi Mask 6.0 35 07/22/18 13:09 97 20 98 Venturi Mask 10.0 45 07/22/18 12:00 98.8 91 19 131/84 (100) 100 07/22/18 08:32 Venturi Mask 10.0 07/22/18 08:00 98.0 96 20 105/95 (98) 95 07/22/18 07:32 100 22 98 Venturi Mask 10.0 45 07/22/18 07:22 95 Venturi Mask 10.0 45 07/22/18 07:22 Venturi Mask 10.0 45 07/22/18 07:22 101 24 92 Venturi Mask 10.0 45 07/22/18 04:00 98.5 76 22 131/80 (97) 95 07/22/18 02:50 88 20 Venturi Mask 10.0 45 07/22/18 01:13 90 24 99 Bi-pap 45 07/22/18 01:03 90 27 98 Facial 45 07/22/18 01:03 90 27 99 Bi-pap 45 07/22/18 00:00 97.4 92 22 127/85 (99) 96 Intake and Output 07/21/18 07/22/18 18:59 06:59 Intake Total 696 ml 120 ml Balance 696 ml 120 ml Intake Oral 696 ml 120 ml # Voids 5 2 # Bowel Movements 1 Microbiology Date/Time Source Procedure Growth Status 07/22/18 11:40 Body Fluid Received 07/20/18 12:30 Body Fluid Gram Stain - Final Resulted 07/20/18 12:30 Body Fluid Body Fluid Culture - Preliminary NO GROWTH AFTER 24 HOURS Resulted Laboratory Tests 07/22/18 05:30: White Blood Count 5.6, Red Blood Count 3.19L, Hemoglobin 9.3L, Hematocrit 27.2L , Mean Corpuscular Volume 85, Mean Corpuscular Hemoglobin 29.2, Mean Corpuscular Hemoglobin Concent 34.2, Red Cell Distribution Width 11.4L, Platelet Count 247, Mean Platelet Volume 8.1, Neutrophils (%) (Auto) 76.8H, Lymphocytes (%) (Auto) 7.0L, Monocytes (%) (Auto) 8.0, Eosinophils (%) (Auto) 6.3H, Basophils (%) (Auto) 1.9, Sodium Level 141, Potassium Level 3.8, Chloride Level 106, Carbon Dioxide Level 28, Anion Gap 7, Blood Urea Nitrogen 9, Creatinine 0.8, Estimat Glomerular Filtration Rate > 60, Glucose Level 96, Calcium Level 8.5, Lactate Dehydrogenase 262H, C-Reactive Protein, Quantitative 19.9H 07/22/18 11:40: Body Fluid Source Thoracentesis, Body Fluid Volume 24, Body Fluid Appearance Hazy, Body Fluid RBC 174, Body Fluid Total Nucleated Cells 185, Body Fluid Polynuclear WBCs (%) 35, Body Fluid Mononuclear WBCs (%) 23, Body Fluid Mesothelial Cells (%) 42, Body Fluid Glucose [Pending], Body Fluid Lactate Dehydrogenase [Pending] Current Medications Medications (Trade) Dose Ordered Sig/Dayanara Route PRN Reason Start Time Stop Time Status Last Admin Dose Admin Acetaminophen (Tylenol) 650 mg Q4H PRN ORAL fever 07/21/18 18:30 08/17/18 18:29 Acetaminophen/ Aspirin/Caffeine (Excedrin Migraine) 1 ea Q6H PRN ORAL migraine 07/21/18 18:30 08/17/18 18:29 Albuterol/ Ipratropium (Albuterol/ Ipratropium) 3 ml Q4H PRN HHN Shortness of Breath 07/22/18 15:00 07/24/18 14:59 Azithromycin (Zithromax) 500 mg Q24H ORAL 07/21/18 21:00 07/26/18 20:59 07/22/18 20:25 Chlorhexidine Gluconate (Antonia-Hex 2%) 1 applic DAILY@2000 TOPIC 07/21/18 20:00 08/18/18 19:59 Famotidine (Pepcid) 20 mg DAILY ORAL 07/22/18 09:00 08/15/18 20:14 07/22/18 08:07 Heparin Sodium (Porcine) (Heparin 5000 units/ml) 5,000 units EVERY 12 HOURS SUBQ 07/21/18 21:00 08/18/18 20:59 Ibuprofen (Advil) 400 mg Q8H PRN ORAL PAIN 1-6 07/21/18 18:30 08/20/18 18:29 Ipratropium [place] (Atrovent) 500 mcg Q6HRT HHN 07/21/18 19:00 07/24/18 16:59 07/22/18 13:09 Lactobacillus Acidophilus (Culturelle) 1 tab TWICE A DAY ORAL 07/22/18 09:00 08/18/18 17:59 07/22/18 17:08 Lorazepam (Ativan) 1 mg Q4H PRN ORAL For Anxiety 07/21/18 18:30 07/25/18 18:29 07/22/18 21:49 Magnesium Hydroxide (Mom) 30 ml BIDPRN PRN ORAL Constipation 07/21/18 18:30 08/20/18 18:29 Meloxicam (Mobic) 15 mg DAILY ORAL 07/22/18 09:00 08/16/18 08:59 07/22/18 08:07 Morphine Sulfate (Morphine Sulfate) 2 mg Q3H PRN IVP Severe Pain (Pain Scale 7-10) 07/22/18 15:00 07/24/18 14:59 Ondansetron HCl (Zofran ODT) 4 mg Q6H PRN ORAL Nausea & Vomiting 07/21/18 18:30 08/18/18 18:29 Sertraline HCl (Zoloft) 200 mg DAILY ORAL 07/23/18 09:00 08/15/18 20:14 Zolpidem Tartrate (Ambien) 5 mg HSPRN PRN ORAL Insomnia 07/21/18 21:00 07/25/18 20:53 Renny Roper MD Jul 22, 2018 23:12
[2018-07-23] VITALS: BP 119/74
[2018-07-23] MEDS: Ipratropium 0.02% Inh Soln 2.5ml UD HHN SCH ×4 (01:00→20:04)
[2018-07-23 04:00] VITALS: BP 121/79
[2018-07-23 08:00] VITALS: BP 127/87
[2018-07-23] MEDS: Heparin 5000 units/ml inj SUBQ SCH ×2 (09:00→20:33)
[2018-07-23] MEDS: Meloxicam 15 MG TAB ORAL SCH (09:22)
[2018-07-23] MEDS: Sertraline 100mg tab ORAL SCH (09:22)
[2018-07-23] MEDS: Lactobacillus-GG tablet ORAL SCH ×2 (09:22→18:09)
--- NOTE | 2018-07-23 09:27 | Diagnostic Imaging Report ---
EXAM: XR Chest, 1 View CLINICAL HISTORY: INFECT TECHNIQUE: Frontal view of the chest. COMPARISON: CXR and CT of 07/16/18. FINDINGS: Lungs: Interval change in pattern of consolidation, now more peripheral, particularly at the left upper lobe. There is clearly still a component of interstitial edema, but would question developing infectious infiltrates in the left lung. Pleural space: Left pleural effusion is increased. No pneumothorax. Heart: Unremarkable. No cardiomegaly. Mediastinum: Unremarkable. Bones/joints: Unremarkable. IMPRESSION: Question developing infectious infiltrate in the left lung. Persistent interstitial pulmonary edema.
[2018-07-23 12:00] VITALS: BP 142/95
[2018-07-23] MEDS ORDERED: Tubing IV Secondary IV ONE (14:30)
--- NOTE | 2018-07-23 14:58 | Infectious Diseases Prog Note ---
Assessment/Plan Assessment/Plan A) 1) mycoplasma pna, + mycoplasma IGM and IGG, sob, hypoxia, + CT scan with infiltrates/nodules - clinically much improved, s/p thoracentesis 2) sepsis, nirav, leukocytosis, fevers, tachypnea, tachycardia - clinically improved 3) pmh - depression 4) allergies - cephalexin, sulfa, tolerates zosyn/pcn 5) fh-nc, sh-negative, mar noted, notes and records noted 6) d/w RN P) 1) azithromycin - day # 6 - plan on 14 day total course because of severe clinical presentation 2) monitor labs, serology and chest x-ray, cannot obtain sputum sample, - chest x-ray noted 3) d/w Dr. Holm and patient 4) continue treatment per primary and consultants 5) avoid picc line if possible, oral azithromycin with excellent bioavailability Subjective Constitutional: Denies: fever HEENT: Reports: congestion - less Respiratory: Reports: shortness of breath - much less Cardiovascular: Reports: chest pain - less Gastrointestinal/Abdominal: Denies: nausea, vomiting, diarrhea Neurologic: Denies: headache Psychiatric: Denies: depression Skin: Denies: rash Hematologic: Denies: bleeding Musculoskeletal: Reports: pain - less pleuritic pain Allergies: Coded Allergies: CEPHALEXIN (Verified Allergy, Unknown, 07/16/18) SULFAMETHOXAZOLE (Verified Allergy, Unknown, 07/16/18) TRIMETHOPRIM (Verified Allergy, Unknown, 07/16/18) Objective Vital Signs Last 24 Hour Vital Signs Date Time Temp Pulse Resp B/P (MAP) Pulse Ox O2 Delivery O2 Flow Rate FiO2 07/23/18 13:43 86 18 96 Venturi Mask 6.0 35 07/23/18 13:23 83 18 95 Venturi Mask 6.0 35 07/23/18 12:00 98.8 79 20 142/95 (111) 96 07/23/18 09:55 21 07/23/18 09:55 80 18 100 Room Air 21 07/23/18 09:48 75 18 98 Room Air 21 07/23/18 09:00 Venturi Mask 6.0 07/23/18 08:00 99.4 85 22 127/87 (100) 93 07/23/18 07:54 Venturi Mask 6.0 35 07/23/18 07:54 94 Venturi Mask 6.0 35 07/23/18 07:54 Venturi Mask 6.0 35 07/23/18 07:54 Venturi Mask 6.0 35 07/23/18 04:00 98.8 68 18 121/79 (93) 94 07/23/18 01:15 Venturi Mask 6.0 35 07/23/18 01:15 Venturi Mask 6.0 35 07/23/18 00:00 98.3 71 19 119/74 (89) 95 07/22/18 21:00 Venturi Mask 6.0 07/22/18 20:17 98.6 91 19 150/85 (106) 96 07/22/18 19:45 Venturi Mask 6.0 35 07/22/18 19:44 Venturi Mask 6.0 35 07/22/18 19:44 93 Venturi Mask 6.0 35 07/22/18 19:44 Venturi Mask 6.0 35 07/22/18 16:00 97.8 84 20 126/82 (97) 98 Height (Feet): 5 Height (Inches): 4.00 Weight (Pounds): 125 General Appearance: no acute distress, other - much less sob HEENT: normocephalic, atraumatic, anicteric Respiratory/Chest: crackles/rales, rhonchi - bilaterally Cardiovascular: normal rate, regular rhythm, no gallop/murmur, no JVD Abdomen: normal bowel sounds, soft, non tender, no organomegaly, non distended Genitourinary: other - no pulido Extremities: no cyanosis Skin: no rash 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 No PE or aortic dissection. 2. Bilateral pulmonary edema/infiltrates. Cannot exclude underlying pulmonary lesion, consider followup to ensure resolution. 3. Small bilateral pleural effusions. Chest x-ray - 07/16 - FINDINGS: Lungs: Bilateral pulmonary infiltrates/edema. Pleural space: Unremarkable. No pneumothorax. Heart: Unremarkable. No cardiomegaly. Mediastinum: Unremarkable. Bones/joints: Unremarkable. IMPRESSION: Bilateral pulmonary infiltrates/edema. Chest x-ray - 07/21/18 - Findings: Bilateral mixed interstitial and airspace infiltrates versus edema are essentially unchanged. There is evidence of slight reaccumulation of pleural fluid on the left. Pleural fluid on the right previously demonstrated sonographically is not evident on plain radiograph. Impression: Suggestion of some reaccumulation of pleural fluid on the left, over one day Unchanged bilateral parenchymal disease Chest x-ray - 07/19/18 - Findings: Much less optimal inspiration currently. Diffuse bilateral interstitial and airspace disease is probably unchanged allowing for differences in degree of inspiration. There is probably some pleural fluid now present bilaterally. Impression: Bilateral interstitial and airspace disease, infiltrates versus edema, probably not significantly changed over 3 days Low lung volumes currently. Suspect increasing bilateral pleural effusions Chest x-ray - 07/23 - FINDINGS: Lungs: Interval change in pattern of consolidation, now more peripheral, particularly at the left upper lobe. There is clearly still a component of interstitial edema, but would question developing infectious infiltrates in the left lung. Pleural space: Left pleural effusion is increased. No pneumothorax. Heart: Unremarkable. No cardiomegaly. Mediastinum: Unremarkable. Bones/joints: Unremarkable. IMPRESSION: Question developing infectious infiltrate in the left lung. Microbiology Date/Time Source Procedure Growth Status 07/22/18 11:40 Pleural Fluid Gram Stain - Final Resulted 07/22/18 11:40 Pleural Fluid Body Fluid Culture - Preliminary NO GROWTH Resulted 07/22/18 11:40 Body Fluid Received 07/22/18 09:00 Stool Clostridium difficile Toxin Assay - Final Complete Labs Test 07/22/18 05:30 07/22/18 11:40 White Blood Count 5.6 K/UL (4.8-10.8) Red Blood Count 3.19 M/UL (4.20-5.40) Hemoglobin 9.3 G/DL (12.0-16.0) Hematocrit 27.2 % (37.0-47.0) Mean Corpuscular Volume 85 FL (80-99) Mean Corpuscular Hemoglobin 29.2 PG (27.0-31.0) Mean Corpuscular Hemoglobin Concent 34.2 G/DL (32.0-36.0) Red Cell Distribution Width 11.4 % (11.6-14.8) Platelet Count 247 K/UL (150-450) Mean Platelet Volume 8.1 FL (6.5-10.1) Neutrophils (%) (Auto) 76.8 % (45.0-75.0) Lymphocytes (%) (Auto) 7.0 % (20.0-45.0) Monocytes (%) (Auto) 8.0 % (1.0-10.0) Eosinophils (%) (Auto) 6.3 % (0.0-3.0) Basophils (%) (Auto) 1.9 % (0.0-2.0) Sodium Level 141 MMOL/L (136-145) Potassium Level 3.8 MMOL/L (3.5-5.1) Chloride Level 106 MMOL/L (98-107) Carbon Dioxide Level 28 MMOL/L (21-32) Anion Gap 7 mmol/L (5-15) Blood Urea Nitrogen 9 mg/dL (7-18) Creatinine 0.8 MG/DL (0.55-1.30) Estimat Glomerular Filtration Rate > 60 mL/min (>60) Glucose Level 96 MG/DL (74-106) Calcium Level 8.5 MG/DL (8.5-10.1) Lactate Dehydrogenase 262 U/L (135-225) C-Reactive Protein, Quantitative 19.9 mg/dL (0.00-0.90) Body Fluid Source Thoracentesis Body Fluid Volume 24 mL Body Fluid Appearance Hazy (Clear) Body Fluid RBC 174 /CUMM Body Fluid Total Nucleated Cells 185 /CUMM Body Fluid Polynuclear WBCs (%) 35 % Body Fluid Mononuclear WBCs (%) 23 % Body Fluid Mesothelial Cells (%) 42 % Body Fluid Glucose 95 mg/dL (.) Body Fluid Lactate Dehydrogenase 185 IU/L (.) Current Medications Medications (Trade) Dose Ordered Sig/Dayanara Route PRN Reason Start Time Stop Time Status Last Admin Dose Admin Acetaminophen (Tylenol) 650 mg Q4H PRN ORAL fever 07/21/18 18:30 08/17/18 18:29 Acetaminophen/ Aspirin/Caffeine (Excedrin Migraine) 1 ea Q6H PRN ORAL migraine 07/21/18 18:30 08/17/18 18:29 Albuterol/ Ipratropium (Albuterol/ Ipratropium) 3 ml Q4H PRN HHN Shortness of Breath 07/22/18 15:00 07/24/18 14:59 07/23/18 09:45 Azithromycin (Zithromax) 500 mg Q24H ORAL 07/21/18 21:00 07/26/18 20:59 07/22/18 20:25 Chlorhexidine Gluconate (Antonia-Hex 2%) 1 applic DAILY@2000 TOPIC 07/21/18 20:00 08/18/18 19:59 Famotidine (Pepcid) 20 mg DAILY ORAL 07/22/18 09:00 08/15/18 20:14 07/23/18 09:22 Heparin Sodium (Porcine) (Heparin 5000 units/ml) 5,000 units EVERY 12 HOURS SUBQ 07/21/18 21:00 08/18/18 20:59 Ibuprofen (Advil) 400 mg Q8H PRN ORAL PAIN 1-6 07/21/18 18:30 08/20/18 18:29 Ipratropium Sharps (Atrovent) 500 mcg Q6HRT HHN 07/21/18 19:00 07/24/18 16:59 07/23/18 13:23 Lactobacillus Acidophilus (Culturelle) 1 tab TWICE A DAY ORAL 07/22/18 09:00 08/18/18 17:59 07/23/18 09:22 Lorazepam (Ativan) 1 mg Q4H PRN ORAL For Anxiety 07/21/18 18:30 07/25/18 18:29 07/22/18 21:49 Magnesium Hydroxide (Mom) 30 ml BIDPRN PRN ORAL Constipation 07/21/18 18:30 08/20/18 18:29 Meloxicam (Mobic) 15 mg DAILY ORAL 07/22/18 09:00 08/16/18 08:59 07/23/18 09:22 Morphine Sulfate (Morphine Sulfate) 2 mg Q3H PRN IVP Severe Pain (Pain Scale 7-10) 07/22/18 15:00 07/24/18 14:59 Ondansetron HCl (Zofran ODT) 4 mg Q6H PRN ORAL Nausea & Vomiting 07/21/18 18:30 08/18/18 18:29 Sertraline HCl (Zoloft) 200 mg DAILY ORAL 07/23/18 09:00 08/15/18 20:14 07/23/18 09:22 Zolpidem Tartrate (Ambien) 5 mg HSPRN PRN ORAL Insomnia 07/21/18 21:00 07/25/18 20:53 Naz Sainz MD Jul 23, 2018 14:58
[2018-07-23 16:00] VITALS: BP 129/84
--- NOTE | 2018-07-23 18:44 | Pulmonology Progress Note ---
Assessment/Plan Assessment/Plan HPI Patient is a 57-year-old female visiting [place], who presented after increased right-sided headache and vomiting. The patient reports having a syncopal episode after standing, having fallen and hit her head. She reports having a persistent headache as well as multiple episodes of vomiting. She reports having generalized body aches and chills. She states that she had not been having any diarrhea. She reports having a nonproductive cough. Previous neck surgery to her neck where she had a nerve ball removed. Patient had prior history of lung nodule and had previously had a CT imaging which showed no change in the nodule.The patient had been taking hormone replacement therapy had recently flown from [place]. Patient denies recent foreign travel.The patient had syncopal episode after standing while in the bathroom. She reported feeling lightheaded prior to syncope. Denies sick contacts, no h/o immunosupression/connective tissue disease Less SOB Positive Mycoplasma Serology - antibiotics per ID Positive SHAYY/RF - possibly false positive S/p Thoracentesisx2, exudative, no growth Cutrrent CXR: 07/21: Findings: Bilateral mixed interstitial and airspace infiltrates versus edema are essentially unchanged. There is evidence of slight reaccumulation of pleural fluid on the left. Pleural fluid on the right previously demonstrated sonographically is not evident on plain radiograph. Impression: Suggestion of some reaccumulation of pleural fluid on the left, over one day CXR: Impression: Bilateral interstitial and airspace disease, infiltrates versus edema, probably not significantly changed over 3 days Low lung volumes currently. Suspect increasing bilateral pleural effusions Previous CT Angio negative for PE On Antibiotics per ID Allergies: Coded Allergies: CEPHALEXIN (Verified Allergy, Unknown, 07/16/18) SULFAMETHOXAZOLE (Verified Allergy, Unknown, 07/16/18) TRIMETHOPRIM (Verified Allergy, Unknown, 07/16/18) Patient History Past Medical History: unable to obtain Reviewed Nursing Documentation: PMH: Agreed; PSxH: Agreed Nursing Documentation-PMH Past Medical History: No Stated History Review of Systems All Other Systems: negative except mentioned in HPI Physical Exam Vital Signs Noted Sp02 EP Interpretation: reviewed, normal General Appearance: normal inspection, alert, no apparent distress, GCS 15 Head: other - right parietal scalp laceration 1cm linear, dried blood Eyes: normal eye exam, PERRL, EOMI, lids + conjunctiva normal, no hyphema, no racoon eyes ENT: normal ENT inspection, TMs + canals normal, oropharynx normal, no ruvalcaba signs Neck: trach midline, no bony tend, full range of motion without pain Respiratory: effort normal, no retractions, speaking in full sentences Cardiovascular: regular rate, rhythm, no JVD Cardiovascular #2: 2+ radial (R), 2+ radial (L), 2+ dorsalis pedis (R), 2+ dorsalis pedis (L) Gastrointestinal: normal inspection, non-tender, non-distended, no rebound/ guarding, normal bowel sounds Genitourinary: normal inspection Musculoskeletal: normal inspection, normal ROM, non-tender, back normal Skin: no rash, normal palpation, other - superficial laceration to right parietal scalp Neurologic: normal inspection, CN II-XII intact, oriented x3, sensory intact, motor strength/tone normal, normal speech Psychiatric: normal inspection, judgment & insight normal, memory normal, mood normal, no suicidal/homicidal ideation Medical Decision Making Impression: Primary Impression: Syncope Head injury Bilateral pleural effusion Pneumonia Pulmonary Nodule Axillary adenopathy Mediastinal lymphadenopathy Plan Antibiotics per ID 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 Out patient follow up of Pulmonary Nodule, positive RF/SHAYY PPX O2 PRN - start BiPAP PRN CXR: Bilateral infiltrates CT Chest: No PE, Pulmonary nodule, Mediastinal LN Labs Test 07/16/18 15:48 07/16/18 17:15 White Blood Count 12.2 K/UL (4.8-10.8) Red Blood Count 4.96 M/UL (4.20-5.40) Hemoglobin 15.1 G/DL (12.0-16.0) Hematocrit 42.9 % (37.0-47.0) Mean Corpuscular Volume 87 FL (80-99) Mean Corpuscular Hemoglobin 30.4 PG (27.0-31.0) Mean Corpuscular Hemoglobin Concent 35.1 G/DL (32.0-36.0) Red Cell Distribution Width 11.5 % (11.6-14.8) Platelet Count 181 K/UL (150-450) Mean Platelet Volume 9.4 FL (6.5-10.1) Neutrophils (%) (Auto) % (45.0-75.0) Lymphocytes (%) (Auto) % (20.0-45.0) Monocytes (%) (Auto) % (1.0-10.0) Eosinophils (%) (Auto) % (0.0-3.0) Basophils (%) (Auto) % (0.0-2.0) Prothrombin Time 10.6 SEC (9.30-11.50) Prothromb Time International Ratio 1.0 (0.9-1.1) Activated Partial Thromboplast Time 29 SEC (23-33) D-Dimer 1.44 mg/L FEU (0.00-0.49) Sodium Level 133 MMOL/L (136-145) Potassium Level 5.0 MMOL/L (3.5-5.1) Chloride Level 100 MMOL/L (98-107) Carbon Dioxide Level 24 MMOL/L (21-32) Anion Gap 9 mmol/L (5-15) Blood Urea Nitrogen 31 mg/dL (7-18) Creatinine 1.7 MG/DL (0.55-1.30) Estimat Glomerular Filtration Rate 31.2 mL/min (>60) Glucose Level 120 MG/DL (74-106) Calcium Level 8.8 MG/DL (8.5-10.1) Total Bilirubin 0.5 MG/DL (0.2-1.0) Aspartate Amino Transf (AST/SGOT) 23 U/L (15-37) Alanine Aminotransferase (ALT/SGPT) 23 U/L (12-78) Alkaline Phosphatase 72 U/L (46-116) Total Protein 8.7 G/DL (6.4-8.2) Albumin 3.2 G/DL (3.4-5.0) Globulin 5.5 g/dL Albumin/Globulin Ratio 0.6 (1.0-2.7) EKG Diagnostic Results Rate: normal Rhythm: NSR ST Segments: no acute changes Rhythm Strip Diag. Results EP Interpretation: yes Rhythm: NSR, no PVC's, no ectopy CT Chest: 1. No PE or aortic dissection. 2. Bilateral pulmonary edema/infiltrates. Cannot exclude underlying pulmonary lesion, consider followup to ensure resolution. 3. Small bilateral pleural effusions. Subjective ROS Limited/Unobtainable: No Allergies: Coded Allergies: CEPHALEXIN (Verified Allergy, Unknown, 07/16/18) SULFAMETHOXAZOLE (Verified Allergy, Unknown, 07/16/18) TRIMETHOPRIM (Verified Allergy, Unknown, 07/16/18) Objective Last 24 Hour Vital Signs Date Time Temp Pulse Resp B/P (MAP) Pulse Ox O2 Delivery O2 Flow Rate FiO2 07/23/18 16:00 98.0 81 20 129/84 (99) 94 07/23/18 13:43 86 18 96 Venturi Mask 6.0 35 07/23/18 13:23 83 18 95 Venturi Mask 6.0 35 07/23/18 12:00 98.8 79 20 142/95 (111) 96 07/23/18 09:55 21 07/23/18 09:55 80 18 100 Room Air 21 07/23/18 09:48 75 18 98 Room Air 21 07/23/18 09:00 Venturi Mask 6.0 07/23/18 08:00 99.4 85 22 127/87 (100) 93 07/23/18 07:54 Venturi Mask 6.0 35 07/23/18 07:54 94 Venturi Mask 6.0 35 07/23/18 07:54 Venturi Mask 6.0 35 07/23/18 07:54 Venturi Mask 6.0 35 07/23/18 04:00 98.8 68 18 121/79 (93) 94 07/23/18 01:15 Venturi Mask 6.0 35 07/23/18 01:15 Venturi Mask 6.0 35 07/23/18 00:00 98.3 71 19 119/74 (89) 95 07/22/18 21:00 Venturi Mask 6.0 07/22/18 20:17 98.6 91 19 150/85 (106) 96 07/22/18 19:45 Venturi Mask 6.0 35 07/22/18 19:44 Venturi Mask 6.0 35 07/22/18 19:44 93 Venturi Mask 6.0 35 07/22/18 19:44 Venturi Mask 6.0 35 Intake and Output 07/22/18 07/23/18 19:00 07:00 Intake Total 680 ml Balance 680 ml Intake Oral 680 ml # Voids 2 Microbiology Date/Time Source Procedure Growth Status 07/22/18 11:40 Body Fluid AFB Specimen Processing Tissue - Final Resulted 07/22/18 11:40 Body Fluid Acid Fast Bacilli Smear - Final Resulted 07/22/18 11:40 Body Fluid Acid Fast Bacilli Culture Pending Resulted 07/22/18 11:40 Pleural Fluid Gram Stain - Final Resulted 07/22/18 11:40 Pleural Fluid Body Fluid Culture - Preliminary NO GROWTH Resulted 07/22/18 11:40 Body Fluid Received 07/22/18 09:00 Stool Clostridium difficile Toxin Assay - Final Complete Current Medications Medications (Trade) Dose Ordered Sig/Dayanara Route PRN Reason Start Time Stop Time Status Last Admin Dose Admin Acetaminophen (Tylenol) 650 mg Q4H PRN ORAL fever 07/21/18 18:30 08/17/18 18:29 Acetaminophen/ Aspirin/Caffeine (Excedrin Migraine) 1 ea Q6H PRN ORAL migraine 07/21/18 18:30 08/17/18 18:29 Albuterol/ Ipratropium (Albuterol/ Ipratropium) 3 ml Q4H PRN HHN Shortness of Breath 07/22/18 15:00 07/24/18 14:59 07/23/18 09:45 Azithromycin (Zithromax) 500 mg Q24H ORAL 07/21/18 21:00 07/26/18 20:59 07/22/18 20:25 Chlorhexidine Gluconate (Anotnia-Hex 2%) 1 applic DAILY@1999 TOPIC 07/21/18 20:00 08/18/18 19:59 Famotidine (Pepcid) 20 mg DAILY ORAL 07/22/18 09:00 08/15/18 20:14 07/23/18 09:22 Heparin Sodium (Porcine) (Heparin 5000 units/ml) 5,000 units EVERY 12 HOURS SUBQ 07/21/18 21:00 08/18/18 20:59 Ibuprofen (Advil) 400 mg Q8H PRN ORAL PAIN 1-6 07/21/18 18:30 08/20/18 18:29 Ipratropium Pep (Atrovent) 500 mcg Q6HRT HHN 07/21/18 19:00 07/24/18 16:59 07/23/18 13:23 Lactobacillus Acidophilus (Culturelle) 1 tab TWICE A DAY ORAL 07/22/18 09:00 08/18/18 17:59 07/23/18 18:09 Lorazepam (Ativan) 1 mg Q4H PRN ORAL For Anxiety 07/21/18 18:30 07/25/18 18:29 07/22/18 21:49 Magnesium Hydroxide (Mom) 30 ml BIDPRN PRN ORAL Constipation 07/21/18 18:30 08/20/18 18:29 Meloxicam (Mobic) 15 mg DAILY ORAL 07/22/18 09:00 08/16/18 08:59 07/23/18 09:22 Morphine Sulfate (Morphine Sulfate) 2 mg Q3H PRN IVP Severe Pain (Pain Scale 7-10) 07/22/18 15:00 07/24/18 14:59 Ondansetron HCl (Zofran ODT) 4 mg Q6H PRN ORAL Nausea & Vomiting 07/21/18 18:30 08/18/18 18:29 Sertraline HCl (Zoloft) 200 mg DAILY ORAL 07/23/18 09:00 08/15/18 20:14 07/23/18 09:22 Zolpidem Tartrate (Ambien) 5 mg HSPRN PRN ORAL Insomnia 07/21/18 21:00 07/25/18 20:53 Renny Roper MD Jul 23, 2018 18:44
[2018-07-23 20:00] VITALS: BP 134/93
[2018-07-23] MEDS: Dyna-Hex 2% Top Sol 2oz TOPIC SCH (20:00)
[2018-07-23] MEDS: Azithromycin 250mg tab ORAL SCH (20:32)
[2018-07-23] MEDS: LORazepam 1mg tab ORAL PRN (22:01)
[2018-07-24] MEDS: Ipratropium 0.02% Inh Soln 2.5ml UD HHN SCH ×4 (00:57→19:40)
[2018-07-24 06:50] VITALS: BP 134/88
[2018-07-24 08:00] VITALS: BP 119/75
[2018-07-24] MEDS ORDERED: D5 1/2NS 1000ml IV ONE (08:08)
[2018-07-24] MEDS ORDERED: NS 275ml ONE (08:08)
[2018-07-24] MEDS: Meloxicam 15 MG TAB ORAL SCH (08:44)
[2018-07-24] MEDS: Lactobacillus-GG tablet ORAL SCH ×2 (08:44→17:28)
[2018-07-24] MEDS: Sertraline 100mg tab ORAL SCH (08:44)
[2018-07-24] MEDS: Heparin 5000 units/ml inj SUBQ SCH ×2 (08:45→20:46)
[2018-07-24 12:00] VITALS: BP 126/88
--- NOTE | 2018-07-24 14:35 | General Progress Note ---
Assessment/Plan Problem List: (1) Pneumonia Assessment & Plan: MYCOPLASMA ICD Codes: J18.9 - Pneumonia, unspecified organism SNOMED: 833731901 (2) Mediastinal lymphadenopathy ICD Codes: R59.0 - Localized enlarged lymph nodes SNOMED: 48973581 (3) Axillary adenopathy ICD Codes: R59.0 - Localized enlarged lymph nodes SNOMED: 027220335 (4) Bilateral pleural effusion ICD Codes: J90 - Pleural effusion, not elsewhere classified SNOMED: 206735653 (5) Syncope ICD Codes: R55 - Syncope and collapse SNOMED: 183230606 Assessment/Plan Abxs per ID bronchodilators Discussed with RN PT Subjective Allergies: Coded Allergies: CEPHALEXIN (Verified Allergy, Unknown, 07/16/18) SULFAMETHOXAZOLE (Verified Allergy, Unknown, 07/16/18) TRIMETHOPRIM (Verified Allergy, Unknown, 07/16/18) Subjective feels better Objective Last 24 Hour Vital Signs Date Time Temp Pulse Resp B/P (MAP) Pulse Ox O2 Delivery O2 Flow Rate FiO2 07/24/18 13:01 80 18 100 Room Air 07/24/18 12:50 80 18 95 Room Air 07/24/18 12:00 98.7 81 19 126/88 (101) 96 07/24/18 08:54 Room Air 07/24/18 08:20 96 Room Air 07/24/18 08:20 Room Air 07/24/18 08:20 79 18 96 Room Air 07/24/18 08:20 Room Air 07/24/18 08:00 99.1 75 18 119/75 (90) 98 07/24/18 06:50 99.0 79 18 134/88 (103) 95 07/24/18 00:59 Venturi Mask 4.0 30 07/24/18 00:58 Venturi Mask 4.0 30 07/23/18 21:00 Room Air 07/23/18 21:00 Room Air 07/23/18 20:00 Venturi Mask 4.0 30 07/23/18 20:00 78 18 96 Venturi Mask 4.0 30 07/23/18 20:00 96 Venturi Mask 4.0 30 07/23/18 20:00 98.5 88 18 134/93 (107) 92 07/23/18 19:50 73 18 96 Venturi Mask 4.0 30 07/23/18 16:00 98.0 81 20 129/84 (99) 94 Intake and Output 07/23/18 07/24/18 19:00 07:00 Intake Total 120 ml Balance 120 ml Intake Oral 120 ml # Voids 4 3 Height (Feet): 5 Height (Inches): 4.00 Weight (Pounds): 125 Cardiovascular: normal rate Respiratory/Chest: lungs clear Edema: no edema noted Generalized Jc Holm MD Jul 24, 2018 14:34
[2018-07-24 16:00] VITALS: BP 130/89
--- NOTE | 2018-07-24 18:05 | Pulmonology Progress Note ---
Assessment/Plan Assessment/Plan HPI Patient is a 57-year-old female visiting [place], who presented after increased right-sided headache and vomiting. The patient reports having a syncopal episode after standing, having fallen and hit her head. She reports having a persistent headache as well as multiple episodes of vomiting. She reports having generalized body aches and chills. She states that she had not been having any diarrhea. She reports having a nonproductive cough. Previous neck surgery to her neck where she had a nerve ball removed. Patient had prior history of lung nodule and had previously had a CT imaging which showed no change in the nodule.The patient had been taking hormone replacement therapy had recently flown from [place]. Patient denies recent foreign travel.The patient had syncopal episode after standing while in the bathroom. She reported feeling lightheaded prior to syncope. Denies sick contacts, no h/o immunosupression/connective tissue disease Less SOB, no new complaints Positive Mycoplasma Serology - antibiotics per ID Positive SHAYY/RF - possibly false positive S/p Thoracentesisx2, exudative, no growth Cutrrent CXR: 07/21: Findings: Bilateral mixed interstitial and airspace infiltrates versus edema are essentially unchanged. There is evidence of slight reaccumulation of pleural fluid on the left. Pleural fluid on the right previously demonstrated sonographically is not evident on plain radiograph. Impression: Suggestion of some reaccumulation of pleural fluid on the left, over one day CXR: Impression: Bilateral interstitial and airspace disease, infiltrates versus edema, probably not significantly changed over 3 days Low lung volumes currently. Suspect increasing bilateral pleural effusions Previous CT Angio negative for PE On Antibiotics per ID Allergies: Coded Allergies: CEPHALEXIN (Verified Allergy, Unknown, 07/16/18) SULFAMETHOXAZOLE (Verified Allergy, Unknown, 07/16/18) TRIMETHOPRIM (Verified Allergy, Unknown, 07/16/18) Patient History Past Medical History: unable to obtain Reviewed Nursing Documentation: PMH: Agreed; PSxH: Agreed Nursing Documentation-PMH Past Medical History: No Stated History Review of Systems All Other Systems: negative except mentioned in HPI Physical Exam Vital Signs Noted Sp02 EP Interpretation: reviewed, normal General Appearance: normal inspection, alert, no apparent distress, GCS 15 Head: other - right parietal scalp laceration 1cm linear, dried blood Eyes: normal eye exam, PERRL, EOMI, lids + conjunctiva normal, no hyphema, no racoon eyes ENT: normal ENT inspection, TMs + canals normal, oropharynx normal, no ruvalcaba signs Neck: trach midline, no bony tend, full range of motion without pain Respiratory: effort normal, no retractions, speaking in full sentences, CTAB Cardiovascular: regular rate, rhythm, no JVD Cardiovascular #2: 2+ radial (R), 2+ radial (L), 2+ dorsalis pedis (R), 2+ dorsalis pedis (L) Gastrointestinal: normal inspection, non-tender, non-distended, no rebound/ guarding, normal bowel sounds Genitourinary: normal inspection Musculoskeletal: normal inspection, normal ROM, non-tender, back normal Skin: no rash, normal palpation, other - superficial laceration to right parietal scalp Neurologic: normal inspection, CN II-XII intact, oriented x3, sensory intact, motor strength/tone normal, normal speech Psychiatric: normal inspection, judgment & insight normal, memory normal, mood normal, no suicidal/homicidal ideation Medical Decision Making Impression: Primary Impression: Syncope Head injury Bilateral pleural effusion Pneumonia Pulmonary Nodule Axillary adenopathy Mediastinal lymphadenopathy Plan Antibiotics per ID HHN [facility]ACKER medications Out patient follow up of Pulmonary Nodule, positive RF/SHAYY PPX O2 PRN - start BiPAP PRN - not using CXR: Bilateral infiltrates CT Chest: No PE, Pulmonary nodule, Mediastinal LN Labs Test 07/16/18 15:48 07/16/18 17:15 White Blood Count 12.2 K/UL (4.8-10.8) Red Blood Count 4.96 M/UL (4.20-5.40) Hemoglobin 15.1 G/DL (12.0-16.0) Hematocrit 42.9 % (37.0-47.0) Mean Corpuscular Volume 87 FL (80-99) Mean Corpuscular Hemoglobin 30.4 PG (27.0-31.0) Mean Corpuscular Hemoglobin Concent 35.1 G/DL (32.0-36.0) Red Cell Distribution Width 11.5 % (11.6-14.8) Platelet Count 181 K/UL (150-450) Mean Platelet Volume 9.4 FL (6.5-10.1) Neutrophils (%) (Auto) % (45.0-75.0) Lymphocytes (%) (Auto) % (20.0-45.0) Monocytes (%) (Auto) % (1.0-10.0) Eosinophils (%) (Auto) % (0.0-3.0) Basophils (%) (Auto) % (0.0-2.0) Prothrombin Time 10.6 SEC (9.30-11.50) Prothromb Time International Ratio 1.0 (0.9-1.1) Activated Partial Thromboplast Time 29 SEC (23-33) D-Dimer 1.44 mg/L FEU (0.00-0.49) Sodium Level 133 MMOL/L (136-145) Potassium Level 5.0 MMOL/L (3.5-5.1) Chloride Level 100 MMOL/L (98-107) Carbon Dioxide Level 24 MMOL/L (21-32) Anion Gap 9 mmol/L (5-15) Blood Urea Nitrogen 31 mg/dL (7-18) Creatinine 1.7 MG/DL (0.55-1.30) Estimat Glomerular Filtration Rate 31.2 mL/min (>60) Glucose Level 120 MG/DL (74-106) Calcium Level 8.8 MG/DL (8.5-10.1) Total Bilirubin 0.5 MG/DL (0.2-1.0) Aspartate Amino Transf (AST/SGOT) 23 U/L (15-37) Alanine Aminotransferase (ALT/SGPT) 23 U/L (12-78) Alkaline Phosphatase 72 U/L (46-116) Total Protein 8.7 G/DL (6.4-8.2) Albumin 3.2 G/DL (3.4-5.0) Globulin 5.5 g/dL Albumin/Globulin Ratio 0.6 (1.0-2.7) EKG Diagnostic Results Rate: normal Rhythm: NSR ST Segments: no acute changes Rhythm Strip Diag. Results EP Interpretation: yes Rhythm: NSR, no PVC's, no ectopy CT Chest: 1. No PE or aortic dissection. 2. Bilateral pulmonary edema/infiltrates. Cannot exclude underlying pulmonary lesion, consider followup to ensure resolution. 3. Small bilateral pleural effusions. Subjective ROS Limited/Unobtainable: No Allergies: Coded Allergies: CEPHALEXIN (Verified Allergy, Unknown, 07/16/18) SULFAMETHOXAZOLE (Verified Allergy, Unknown, 07/16/18) TRIMETHOPRIM (Verified Allergy, Unknown, 07/16/18) Objective Last 24 Hour Vital Signs Date Time Temp Pulse Resp B/P (MAP) Pulse Ox O2 Delivery O2 Flow Rate FiO2 07/24/18 16:00 97.2 77 16 130/89 (103) 100 07/24/18 13:01 80 18 100 Room Air 21 07/24/18 12:50 80 18 95 Room Air 21 07/24/18 12:00 98.7 81 19 126/88 (101) 96 07/24/18 08:54 Room Air 07/24/18 08:20 96 Room Air 07/24/18 08:20 Room Air 21 07/24/18 08:20 79 18 96 Room Air 07/24/18 08:20 Room Air 21 07/24/18 08:00 99.1 75 18 119/75 (90) 98 07/24/18 06:50 99.0 79 18 134/88 (103) 95 07/24/18 00:59 Venturi Mask 4.0 30 07/24/18 00:58 Venturi Mask 4.0 30 07/23/18 21:00 Room Air 07/23/18 21:00 Room Air 07/23/18 20:00 Venturi Mask 4.0 30 07/23/18 20:00 78 18 96 Venturi Mask 4.0 30 07/23/18 20:00 96 Venturi Mask 4.0 30 07/23/18 20:00 98.5 88 18 134/93 (107) 92 07/23/18 19:50 73 18 96 Venturi Mask 4.0 30 Intake and Output 07/23/18 07/24/18 19:00 07:00 Intake Total 120 ml Balance 120 ml Intake Oral 120 ml # Voids 4 3 Microbiology Date/Time Source Procedure Growth Status 07/22/18 11:40 Body Fluid AFB Specimen Processing Tissue - Final Resulted 07/22/18 11:40 Body Fluid Acid Fast Bacilli Smear - Final Resulted 07/22/18 11:40 Body Fluid Acid Fast Bacilli Culture Pending Resulted 07/22/18 11:40 Pleural Fluid Gram Stain - Final Resulted 07/22/18 11:40 Pleural Fluid Body Fluid Culture - Preliminary NO GROWTH AFTER 24 HOURS Resulted 07/22/18 11:40 Body Fluid Received 07/22/18 09:00 Stool Clostridium difficile Toxin Assay - Final Complete Current Medications Medications (Trade) Dose Ordered Sig/Dayanara Route PRN Reason Start Time Stop Time Status Last Admin Dose Admin Acetaminophen (Tylenol) 650 mg Q4H PRN ORAL fever 07/21/18 18:30 08/17/18 18:29 Acetaminophen/ Aspirin/Caffeine (Excedrin Migraine) 1 ea Q6H PRN ORAL migraine 07/21/18 18:30 08/17/18 18:29 Azithromycin (Zithromax) 500 mg Q24H ORAL 07/21/18 21:00 07/26/18 20:59 07/23/18 20:32 Famotidine (Pepcid) 20 mg DAILY ORAL 07/22/18 09:00 08/15/18 20:14 07/24/18 08:44 Heparin Sodium (Porcine) (Heparin 5000 units/ml) 5,000 units EVERY 12 HOURS SUBQ 07/21/18 21:00 08/18/18 20:59 Ibuprofen (Advil) 400 mg Q8H PRN ORAL PAIN 1-6 07/21/18 18:30 08/20/18 18:29 Lactobacillus Acidophilus (Culturelle) 1 tab TWICE A DAY ORAL 07/22/18 09:00 08/18/18 17:59 07/24/18 17:28 Lorazepam (Ativan) 1 mg Q4H PRN ORAL For Anxiety 07/21/18 18:30 07/25/18 18:29 07/23/18 22:01 Magnesium Hydroxide (Mom) 30 ml BIDPRN PRN ORAL Constipation 07/21/18 18:30 08/20/18 18:29 Meloxicam (Mobic) 15 mg DAILY ORAL 07/22/18 09:00 08/16/18 08:59 07/24/18 08:44 Ondansetron HCl (Zofran ODT) 4 mg Q6H PRN ORAL Nausea & Vomiting 07/21/18 18:30 08/18/18 18:29 Sertraline HCl (Zoloft) 200 mg DAILY ORAL 07/23/18 09:00 08/15/18 20:14 07/24/18 08:44 Zolpidem Tartrate (Ambien) 5 mg HSPRN PRN ORAL Insomnia 07/21/18 21:00 07/25/18 20:53 Renny Roper MD Jul 24, 2018 18:05
[2018-07-24] MEDS ORDERED: Albuterol/Ipratropium 3ml neb HHN PRN ×2 (19:30)
[2018-07-24] MEDS ORDERED: Albuterol/Ipratropium 3ml neb HHN SCH (19:30)
[2018-07-24 20:00] VITALS: BP 135/87
[2018-07-24] MEDS: LORazepam 1mg tab ORAL PRN (20:45)
[2018-07-24] MEDS: Azithromycin 250mg tab ORAL SCH (20:45)
[2018-07-25] MEDS: Ipratropium 0.02% Inh Soln 2.5ml UD HHN SCH ×3 (01:00→13:31)
[2018-07-25 08:00] VITALS: BP 138/84
[2018-07-25] MEDS: Meloxicam 15 MG TAB ORAL SCH (08:21)
[2018-07-25] MEDS: Lactobacillus-GG tablet ORAL SCH (08:21)
[2018-07-25] MEDS: Sertraline 100mg tab ORAL SCH (08:21)
[2018-07-25] MEDS: Heparin 5000 units/ml inj SUBQ SCH (08:23)
[2018-07-25] MEDS ORDERED: ZITHROMAX250 MG ORAL (11:55)
--- NOTE | 2018-07-25 11:57 | General Progress Note ---
Assessment/Plan Problem List: (1) Pneumonia Assessment & Plan: MYCOPLASMA ICD Codes: J18.9 - Pneumonia, unspecified organism SNOMED: 883651349 (2) Mediastinal lymphadenopathy ICD Codes: R59.0 - Localized enlarged lymph nodes SNOMED: 96746180 (3) Axillary adenopathy ICD Codes: R59.0 - Localized enlarged lymph nodes SNOMED: 002950588 (4) Bilateral pleural effusion ICD Codes: J90 - Pleural effusion, not elsewhere classified SNOMED: 052590351 (5) Syncope ICD Codes: R55 - Syncope and collapse SNOMED: 383262285 Assessment/Plan Abxs Dc today Subjective Allergies: Coded Allergies: CEPHALEXIN (Verified Allergy, Unknown, 07/16/18) SULFAMETHOXAZOLE (Verified Allergy, Unknown, 07/16/18) TRIMETHOPRIM (Verified Allergy, Unknown, 07/16/18) Subjective feels better Objective Last 24 Hour Vital Signs Date Time Temp Pulse Resp B/P (MAP) Pulse Ox O2 Delivery O2 Flow Rate FiO2 07/25/18 09:00 Room Air Room Air 07/25/18 08:00 99.2 69 19 138/84 (102) 96 07/25/18 07:52 78 16 94 Room Air 21 07/25/18 07:51 94 Room Air 07/25/18 07:50 Room Air 07/25/18 07:02 75 18 99 Room Air 07/25/18 01:09 Venturi Mask 4.0 30 07/25/18 01:09 Venturi Mask 4.0 30 07/24/18 21:00 Room Air 07/24/18 20:00 99.1 68 17 135/87 (103) 95 07/24/18 19:40 79 18 99 Venturi Mask 4.0 30 07/24/18 19:39 96 Venturi Mask 4.0 30 07/24/18 19:39 Venturi Mask 4.0 30 07/24/18 19:30 76 18 96 Venturi Mask 4.0 30 07/24/18 16:00 97.2 77 16 130/89 (103) 100 07/24/18 13:01 80 18 100 Room Air 21 07/24/18 12:50 80 18 95 Room Air 21 07/24/18 12:00 98.7 81 19 126/88 (101) 96 Intake and Output 07/24/18 07/25/18 19:00 07:00 Intake Total 100 ml Balance 100 ml Intake Oral 100 ml # Voids 2 Height (Feet): 5 Height (Inches): 4.00 Weight (Pounds): 125 Jc Holm MD Jul 25, 2018 11:57
[2018-07-25 12:00] VITALS: BP 131/84
--- NOTE | 2018-07-25 12:36 | Pulmonology Progress Note ---
Assessment/Plan Problems: (1) Elevated antinuclear antibody (SHAYY) level (2) Elevated rheumatoid factor (3) Mycoplasma pneumonia (4) Mediastinal lymphadenopathy (5) Axillary adenopathy Assessment/Plan Complete 14 day course of PO Azithro per ID Patient will see me on wed prior to flight home next week Imaging will be burned on a disc and given to patient prior to D/C She will F/U with her customs officer in [place] upon return to [facility]. She will ask him to: 1. Repeat RF, SHAYY and autoimmune labs 2. Repeat CT chest in 4 weeks in [place]. If persistent LAD and nodularity will need further w/u and Bx Optimize pulmonary hygiene/mobilize as tolerated PRN HHN's PRN Anti-tussive therapy DVT Px hep SQ FC Stable for D/C from a pulmonary standpoint Subjective Allergies: Coded Allergies: CEPHALEXIN (Verified Allergy, Unknown, 07/16/18) SULFAMETHOXAZOLE (Verified Allergy, Unknown, 07/16/18) TRIMETHOPRIM (Verified Allergy, Unknown, 07/16/18) Subjective AFVSS, doing better, stable on RA No SOB, less cough, no wheezing, no F/C Objective Last 24 Hour Vital Signs Date Time Temp Pulse Resp B/P (MAP) Pulse Ox O2 Delivery O2 Flow Rate FiO2 07/25/18 09:00 Room Air Room Air 07/25/18 08:00 99.2 69 19 138/84 (102) 96 07/25/18 07:52 78 16 94 Room Air 21 07/25/18 07:51 94 Room Air 07/25/18 07:50 Room Air 07/25/18 07:02 75 18 99 Room Air 07/25/18 01:09 Venturi Mask 4.0 30 07/25/18 01:09 Venturi Mask 4.0 30 07/24/18 21:00 Room Air 07/24/18 20:00 99.1 68 17 135/87 (103) 95 07/24/18 19:40 79 18 99 Venturi Mask 4.0 30 07/24/18 19:39 96 Venturi Mask 4.0 30 07/24/18 19:39 Venturi Mask 4.0 30 07/24/18 19:30 76 18 96 Venturi Mask 4.0 30 07/24/18 16:00 97.2 77 16 130/89 (103) 100 07/24/18 13:01 80 18 100 Room Air 21 07/24/18 12:50 80 18 95 Room Air 21 Intake and Output 07/24/18 07/25/18 19:00 07:00 Intake Total 100 ml Balance 100 ml Intake Oral 100 ml # Voids 2 General Appearance: WD/WN, no acute distress HEENT: normocephalic, atraumatic, anicteric, mucous membranes moist Respiratory/Chest: chest wall non-tender, lungs clear, normal breath sounds, no respiratory distress, no accessory muscle use Cardiovascular: normal peripheral pulses, normal rate, regular rhythm Abdomen: normal bowel sounds, soft, non tender, no organomegaly, non distended , no mass Extremities: no cyanosis, no clubbing, no edema Current Medications Medications (Trade) Dose Ordered Sig/Dayanara Route PRN Reason Start Time Stop Time Status Last Admin Dose Admin Acetaminophen (Tylenol) 650 mg Q4H PRN ORAL fever 07/21/18 18:30 08/17/18 18:29 Acetaminophen/ Aspirin/Caffeine (Excedrin Migraine) 1 ea Q6H PRN ORAL migraine 07/21/18 18:30 08/17/18 18:29 Albuterol/ Ipratropium (Albuterol/ Ipratropium) 3 ml Q4HRT PRN HHN Shortness of Breath 07/24/18 19:30 07/29/18 19:29 Azithromycin (Zithromax) 500 mg Q24H ORAL 07/21/18 21:00 07/26/18 20:59 07/24/18 20:45 Famotidine (Pepcid) 20 mg DAILY ORAL 07/22/18 09:00 08/15/18 20:14 07/25/18 08:21 Heparin Sodium (Porcine) (Heparin 5000 units/ml) 5,000 units EVERY 12 HOURS SUBQ 07/21/18 21:00 08/18/18 20:59 Ibuprofen (Advil) 400 mg Q8H PRN ORAL PAIN 1-6 07/21/18 18:30 08/20/18 18:29 Ipratropium [place] (Atrovent) 500 mcg Q6HRT HHN 07/24/18 19:15 07/29/18 19:14 07/25/18 07:52 Lactobacillus Acidophilus (Culturelle) 1 tab TWICE A DAY ORAL 07/22/18 09:00 08/18/18 17:59 07/25/18 08:21 Lorazepam (Ativan) 1 mg Q4H PRN ORAL For Anxiety 07/21/18 18:30 07/25/18 18:29 07/24/18 20:45 Magnesium Hydroxide (Mom) 30 ml BIDPRN PRN ORAL Constipation 07/21/18 18:30 08/20/18 18:29 Meloxicam (Mobic) 15 mg DAILY ORAL 07/22/18 09:00 08/16/18 08:59 07/25/18 08:21 Ondansetron HCl (Zofran ODT) 4 mg Q6H PRN ORAL Nausea & Vomiting 07/21/18 18:30 08/18/18 18:29 Sertraline HCl (Zoloft) 200 mg DAILY ORAL 07/23/18 09:00 08/15/18 20:14 07/25/18 08:21 Zolpidem Tartrate (Ambien) 5 mg HSPRN PRN ORAL Insomnia 07/21/18 21:00 07/25/18 20:53 Ambrose Dimas MD Jul 25, 2018 12:36
--- NOTE | 2018-07-25 14:58 | Infectious Diseases Prog Note ---
Assessment/Plan Assessment/Plan A) 1) mycoplasma pna, + mycoplasma IGM and IGG, sob, hypoxia, + CT scan with infiltrates/nodules - clinically much improved, s/p thoracentesis 2) sepsis, nirav, leukocytosis, fevers, tachypnea, tachycardia - clinically improved 3) pmh - depression 4) allergies - cephalexin, sulfa, tolerates zosyn/pcn 5) fh-nc, sh-negative, mar noted, notes and records noted 6) d/w RN P) 1) azithromycin - day # 8 - plan on 14 day total course because of severe clinical presentation 2) monitor labs, serology and chest x-ray, cannot obtain sputum sample, - chest x-ray noted 3) d/w Dr. Holm and patient 4) continue treatment per primary and consultants 5) avoid picc line if possible, oral azithromycin with excellent bioavailability 6) stable ID standpoint, d/w Dr. Holm about abx upon discharge, d/w patient and mother Subjective Constitutional: Denies: fever, fatigue HEENT: Denies: congestion Respiratory: Denies: shortness of breath Cardiovascular: Denies: chest pain Gastrointestinal/Abdominal: Denies: nausea, vomiting, diarrhea Genitourinary: Denies: dysuria, hematuria, frequency, other Neurologic: Denies: headache Psychiatric: Denies: depression Skin: Denies: rash Hematologic: Denies: bleeding Musculoskeletal: Denies: pain Allergies: Coded Allergies: CEPHALEXIN (Verified Allergy, Unknown, 07/16/18) SULFAMETHOXAZOLE (Verified Allergy, Unknown, 07/16/18) TRIMETHOPRIM (Verified Allergy, Unknown, 07/16/18) Objective Vital Signs Last 24 Hour Vital Signs Date Time Temp Pulse Resp B/P (MAP) Pulse Ox O2 Delivery O2 Flow Rate FiO2 07/25/18 13:31 86 18 95 Room Air 21 07/25/18 12:00 98.6 73 19 131/84 (100) 96 07/25/18 09:00 Room Air Room Air 07/25/18 08:00 99.2 69 19 138/84 (102) 96 07/25/18 07:52 78 16 94 Room Air 21 07/25/18 07:51 94 Room Air 07/25/18 07:50 Room Air 07/25/18 07:02 75 18 99 Room Air 07/25/18 01:09 Venturi Mask 4.0 30 07/25/18 01:09 Venturi Mask 4.0 30 07/24/18 21:00 Room Air 07/24/18 20:00 99.1 68 17 135/87 (103) 95 07/24/18 19:40 79 18 99 Venturi Mask 4.0 30 07/24/18 19:39 96 Venturi Mask 4.0 30 07/24/18 19:39 Venturi Mask 4.0 30 07/24/18 19:30 76 18 96 Venturi Mask 4.0 30 07/24/18 16:00 97.2 77 16 130/89 (103) 100 Height (Feet): 5 Height (Inches): 4.00 Weight (Pounds): 125 General Appearance: no acute distress HEENT: normocephalic, atraumatic, anicteric, mucous membranes moist Respiratory/Chest: lungs clear, normal breath sounds, no respiratory distress, no accessory muscle use Cardiovascular: normal rate, regular rhythm, no gallop/murmur, no JVD Abdomen: normal bowel sounds, soft, non tender, no organomegaly, non distended Genitourinary: other - no pulido Extremities: no cyanosis Skin: no rash Neurologic/Psychiatric: park aide II-XII grossly normal, alert, oriented x 3, responsive Lymphatic: no neck adenopathy Musculoskeletal: no effusion Objective CT chest - IMPRESSION: 1. No PE or aortic dissection. 2. Bilateral pulmonary edema/infiltrates. Cannot exclude underlying pulmonary lesion, consider followup to ensure resolution. 3. Small bilateral pleural effusions. Chest x-ray - 07/16 - FINDINGS: Lungs: Bilateral pulmonary infiltrates/edema. Pleural space: Unremarkable. No pneumothorax. Heart: Unremarkable. No cardiomegaly. Mediastinum: Unremarkable. Bones/joints: Unremarkable. IMPRESSION: Bilateral pulmonary infiltrates/edema. Chest x-ray - 07/21/18 - Findings: Bilateral mixed interstitial and airspace infiltrates versus edema are essentially unchanged. There is evidence of slight reaccumulation of pleural fluid on the left. Pleural fluid on the right previously demonstrated sonographically is not evident on plain radiograph. Impression: Suggestion of some reaccumulation of pleural fluid on the left, over one day Unchanged bilateral parenchymal disease Chest x-ray - 07/19/18 - Findings: Much less optimal inspiration currently. Diffuse bilateral interstitial and airspace disease is probably unchanged allowing for differences in degree of inspiration. There is probably some pleural fluid now present bilaterally. Impression: Bilateral interstitial and airspace disease, infiltrates versus edema, probably not significantly changed over 3 days Low lung volumes currently. Suspect increasing bilateral pleural effusions Chest x-ray - 07/23 - FINDINGS: Lungs: Interval change in pattern of consolidation, now more peripheral, particularly at the left upper lobe. There is clearly still a component of interstitial edema, but would question developing infectious infiltrates in the left lung. Pleural space: Left pleural effusion is increased. No pneumothorax. Heart: Unremarkable. No cardiomegaly. Mediastinum: Unremarkable. Bones/joints: Unremarkable. IMPRESSION: Question developing infectious infiltrate in the left lung. Microbiology Date/Time Source Procedure Growth Status 07/16/18 16:05 Blood Blood Culture - Final NO GROWTH AFTER 5 DAYS Complete 07/22/18 11:40 Body Fluid AFB Specimen Processing Tissue - Final Resulted 07/22/18 11:40 Body Fluid Acid Fast Bacilli Smear - Final Resulted 07/22/18 11:40 Body Fluid Acid Fast Bacilli Culture Pending Resulted 07/16/18 16:55 Nasal Nares Influenza Types A,B Antigen (SONAL) - Final Complete 07/22/18 09:00 Stool Clostridium difficile Toxin Assay - Final Complete wbc - 5.6 hgb - 9.3 cr - 0.8 Current Medications Medications (Trade) Dose Ordered Sig/Dayanara Route PRN Reason Start Time Stop Time Status Last Admin Dose Admin Acetaminophen (Tylenol) 650 mg Q4H PRN ORAL fever 07/21/18 18:30 08/17/18 18:29 Acetaminophen/ Aspirin/Caffeine (Excedrin Migraine) 1 ea Q6H PRN ORAL migraine 07/21/18 18:30 08/17/18 18:29 Albuterol/ Ipratropium (Albuterol/ Ipratropium) 3 ml Q4HRT PRN HHN Shortness of Breath 07/24/18 19:30 07/29/18 19:29 Azithromycin (Zithromax) 500 mg Q24H ORAL 07/21/18 21:00 07/26/18 20:59 07/24/18 20:45 Famotidine (Pepcid) 20 mg DAILY ORAL 07/22/18 09:00 08/15/18 20:14 07/25/18 08:21 Heparin Sodium (Porcine) (Heparin 5000 units/ml) 5,000 units EVERY 12 HOURS SUBQ 07/21/18 21:00 08/18/18 20:59 Ibuprofen (Advil) 400 mg Q8H PRN ORAL PAIN 1-6 07/21/18 18:30 08/20/18 18:29 Ipratropium [place] (Atrovent) 500 mcg Q6HRT HHN 07/24/18 19:15 07/29/18 19:14 07/25/18 13:31 Lactobacillus Acidophilus (Culturelle) 1 tab TWICE A DAY ORAL 07/22/18 09:00 08/18/18 17:59 07/25/18 08:21 Lorazepam (Ativan) 1 mg Q4H PRN ORAL For Anxiety 07/21/18 18:30 07/25/18 18:29 07/24/18 20:45 Magnesium Hydroxide (Mom) 30 ml BIDPRN PRN ORAL Constipation 07/21/18 18:30 08/20/18 18:29 Meloxicam (Mobic) 15 mg DAILY ORAL 07/22/18 09:00 08/16/18 08:59 07/25/18 08:21 Ondansetron HCl (Zofran ODT) 4 mg Q6H PRN ORAL Nausea & Vomiting 07/21/18 18:30 08/18/18 18:29 Sertraline HCl (Zoloft) 200 mg DAILY ORAL 07/23/18 09:00 08/15/18 20:14 07/25/18 08:21 Zolpidem Tartrate (Ambien) 5 mg HSPRN PRN ORAL Insomnia 07/21/18 21:00 07/25/18 20:53 Naz Sainz MD Jul 25, 2018 14:58
--- NOTE | 2018-07-27 08:06 | Discharge Summary ---
Discharge Summary Discharge Summary _ DATE OF ADMISSION: 07/16/2018 DATE OF DISCHARGE: 07/25/2018 REASON FOR ADMISSION: 57 years old female, residing in [place] , with past medical history of arthritis , visiting her family in [place] , presented with persistent right- sided headache and multiple episodes of vomiting after the fall. Patient felt dizzy while standing and subsequently had a syncopal episode, resulting in right sided headache and vomiting episodes. Patient also reported nonproductive cough, fever and chills. Upon evaluation vital signs revealed low blood pressure 84/51. Patient was febrile and tachycardic. Laboratory workup revealed leukocytosis, elevated D-dimer and evidence of renal failure. Troponin was negative. EKG revealed sinus rhythm, no acute ischemic changes. CTA of the chest revealed no PE or aortic dissection. Bilateral pulmonary edema /infiltrates. Cannot exclude underlying pulmonary lesion. Possible left upper lobe nodule. It also showed nonspecific mildly prominent mediastinal and bilateral axillary lymph nodes. Chest x-ray showed bilateral pulmonary infiltrates. Patient admitted with diagnoses of syncopal episode, head injury, pneumonia , renal failure, bilateral pleural effusion,possible pulmonary nodule , axillary adenopathy, mediastinal lymphadenopathy. CONSULTANTS: pulmonary Dr. Dimas ID specialist Dr. Sainz [place] [facility] [employer]SE: Patient admitted and started on IV fluids and broad-spectrum antibiotic. ID and pulmonology consults were requested. Supplemental oxygen provided as needed to keep pulse oximetry above 92%. Patient required different modes of oxygen delivery :100% nonrebreathing mask, Venturi mask, BiPAP. Hand-held nebulizer therapy with bronchodilators provided. Prior to discharge pulse oximetry was stable on room air. Antitussive provided as needed. DVT prophylaxis provided. Blood pressure was closely monitored. Blood pressure improved with IV hydration. Echocardiogram revealed preserved ejection fraction 65-70% and right ventricular systolic pressure of 30 , it also showed large pleural effusion. Follow-up chest x-ray showed increased pleural effusion on the left. Patient subsequently undergone thoracentesis of left pleural effusion , yielding 600 mL of pleural fluid . Chest x-ray post-thoracentesis showed resolution of left pleural effusion and no pneumothorax. However, repeated chest x-ray showed reaccumulation of left pleural effusion Patient subsequently undergone another thoracentesis which yielded 610 ml of pleural fluid. Culture of pleural pleural fluid was negative. Cytology of pleural fluid revealed no malignant cells, but showed mild mixed inflammation. Infectious disease specialist closely followed . ESR 114. Blood culture were negative. Influenza screen was negative. Cryptococcal antigen was negative . HIV test was nonreactive. Legionella urine antigen negative. Elevated titers of Mycoplasma pneumonia both IgG and IgM . Antibiotic regimen optimized as per ID recommendation. Patient will need total of 14 days treatment due to severe clinical presentation. Infectious disease specialist recommended to avoid PICC line if possible , and continue with oral azithromycin, which had had excellent bioavailability. Autoimmune workup revealed elevated rheumatoid factor elevated and high positive SHAYY. Patient will need further workup as outpatient for autoimmune disease. Renal parameters and electrolytes were closely monitored. Electrolytes corrected as needed. Nephrotoxins were avoided. Acute renal failure resolved , possibly due to dehydration. Prior to discharge BUN 9 creatinine 0.8. Blood pressure stabilized with intravenous hydration. Leukocytosis and fevers resolved . Patient clinically improved. Pulse oximetry stable on room air. Patient was cleared for discharge, will need 6 more days of oral azithromycin to complete the course as recommended by ID specialist. FINAL DIAGNOSES: Probably sepsis Mycoplasma pneumonia Bilateral pleural effusion , status post thoracentesis 2 left pleural effusion Syncopal episode , probably due to overwhelming infection and hypotension Head injury Mediastinal lymphadenopathy Axillary adenopathy Elevated AMA Elevated rheumatoid factor Possible pulmonary nodule Acute kidney injury -resolved DISCHARGE MEDICATIONS: See Medication Reconciliation list. DISCHARGE INSTRUCTIONS: Patient was discharged home with home . Follow up with security supervisor prior to leaving to [place]. Images were given to patient prior to discharge (put on disk). Patient to follow-up with her drapery rod assembler in [place] upon returning to [facility]. Patient will need further workup for autoimmune disease. Patient will need to repeat CT chest in 4 weeks. If persistent lymphadenopathy or nodularity, patient will need further workup and biopsy. I have been assigned to dictate discharge summary for this account. I was not involved in the patient's management. Rosario Encarnacion NP Jul 27, 2018 08:06
== END 2018-07-25 15:39 | disposition home or self-care (01) | DRG 871 ==
LOC: EMR 15:53 → 2E 17:10 → EDBEDREQ 21:03 → 2W 07-18 20:30 → 3E 07-21 18:26
PROC: 0W9B3ZZ Drainage of Left Pleural Cavity, Percutaneous Approach (ICD-10-PCS; principal; 2018-07-20)
DX: A41.9 Sepsis, unspecified organism (principal); J15.7 Pneumonia due to Mycoplasma pneumoniae; J91.8 Pleural effusion in other conditions classified elsewhere; N17.9 Acute kidney failure, unspecified; R55 Syncope and collapse; S09.90XA Unspecified injury of head, initial encounter; W19.XXXA Unspecified fall, initial encounter; R59.0 Localized enlarged lymph nodes; R91.8 Other nonspecific abnormal finding of lung field; R79.89 Other specified abnormal findings of blood chemistry; Z88.1 Allergy status to other antibiotic agents; R51 Headache; Z88.2 Allergy status to sulfonamides
CPT/HCPCS: 36415; 36600; 70450; 71045; 71275; 76942; 80048; 80053; 81003; 82164; 82803; 83605; 83615; 84484; 85007; 85025; 85379; 85610; 85651; 85730; 86039; 86140; 86431; 86635; 86703; 86710; 86738; 87040; 87070; 87116; 87205; 87324; 87449; 88104; 89051; 93005; 93306; 94640; 94660; 94664; 94760; 96361; 96365; 96375; 99285; J2405; J2765; J7620; S0077